=== PATIENT | female | born 1945 | race Caucasian/White ===

== ENCOUNTER → 2016-07-09 | Outpatient (REF) | payer MEDICARE, OTHER ==
[~2016-07-09] MED LIST: AMLO5TAB2 PO; BACL10TA2 PO; BACT2OIN2 TOP; BISO5TAB5 PO; BUTA1CAP4 PO; CLAR500T PO; CLON0.5T PO; CLON2TAB PO; DOCU100T8 PO; DOXE75CA2 PO; GABA300C3 PO; HCTZ50TA PO; HYDR10T PO; HYDR62TA PO; LISI40TAB PO; METF500T PO; ONDA1TAB15 PO; OXYC-517 PO; OXYC20TA2 PO; PERP16TA7 PO; POLYOPD OU; PRAV40TA2 PO; SYNT88TA2 PO; VENL75TA3 PO; VITATAB11 PO
== END ==
LOC: M LAB REF 19:34
PROVIDERS: ATTEND Physician Assistant
DX: R30.0 Dysuria (principal)

== ENCOUNTER 2016-08-21 13:23 | Emergency (ER) | payer MEDICARE, OTHER ==
[~2016-08-21] VITALS: Ht 160 cm; Wt 72.6 kg
[2016-08-21] MEDS ORDERED: ONETAB35 PO (13:52)
[2016-08-21] MEDS ORDERED: methylPREDNISolone INJ 125 MG/2 ML VIAL (J2930) IV ONE (14:15)
[2016-08-21] MEDS: IPRATROPIUM 0.5MG/ALBUTEROL 2.5MG INH SOL UD 3ML (DUONEB)(J7620) NEB PRN ×3 (14:15→15:09)
--- NOTE | 2016-08-21 14:42 | REP ---
Clinical: Dyspnea. Cough. Comparison: 09/28/2015. Findings: Mediastinum and cardiac silhouette are normal. Lung sterling demonstrate chronic interstitial changes. Coarsened markings and bronchitis along with scattered atelectasis cannot be excluded. No effusion. No pneumothorax. Skeletal structures intact. Impression: Cannot exclude bronchitis or scattered atelectasis. Signed by Daren Grajeda MD 08/21/2016 02:33 P
[2016-08-21 14:49] LABS: ABG HCO3 30.8 MEQ/L (22.0-26.0); ABG PARTIAL PRESSURE CO2 51.5 mmHg (35.0-45.0); ABG PARTIAL PRESSURE O2 72.5 mmHg (75.0-100.0); ABG STANDARD HCO3 28.9 MEQ/L (22.0-26.0); ABG TOTAL CO2 32.3 MEQ/L (23.0-31.0); ABG pH (ARTERIAL) 7.394 UNITS (7.350-7.450)
[2016-08-21 15:03] LABS: CALCIUM LEVEL 9.2 MG/DL (8.8-10.2); CREATININE FOR GFR 1.24 MG/DL (0.55-1.02); GLOMERULAR FILTRATION RATE 45.4 (>39); POTASSIUM SERUM 3.7 MEQ/L (3.5-5.1)
[2016-08-21 15:07] LABS: BASO % 0.5 % (0.0-1.0); EOS % 0.7 % (0.0-3.0); LARGE UNSTAINED CELL # 0.1 K/mm3 (0.0-0.4); LARGE UNSTAINED CELL % 2.4 % (0.0-4.0); LYMPH # 1.1 K/mm3 (1.5-4.5); LYMPH % 20.8 % (24.0-44.0); MEAN CORPUSCULAR HEMOGLOBIN 30.8 pg (27.0-33.0); MEAN CORPUSCULAR HGB CONC 31.8 g/dl (32.0-36.5); MONO # 0.4 K/mm3 (0.0-0.8); NEUTROPHILS # 3.1 K/mm3 (1.8-7.7); NEUTROPHILS % 67.5 % (36.0-66.0); PLATELET COUNT, AUTOMATED 249 k/mm3 (150-450); RED CELL DISTRIBUTION WIDTH 15.3 % (11.5-14.5); WHITE BLOOD COUNT 4.6 K/mm3 (4.0-10.0)
[2016-08-21 16:30] VITALS: BP 201/91
[2016-08-21] MEDS ORDERED: IPRASOL4 IN (16:43)
--- NOTE | 2016-08-22 20:48 | ECGEPIP ---
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
== END 2016-08-21 16:55 | disposition left against medical advice (07) ==
LOC: M ED 15:33
DX: J44.1 Chronic obstructive pulmonary disease with (acute) exacerbation (principal); I10 Essential (primary) hypertension; E11.9 Type 2 diabetes mellitus without complications; E78.5 Hyperlipidemia, unspecified; Z87.891 Personal history of nicotine dependence; Z88.0 Allergy status to penicillin; Z88.8 Allergy status to other drugs, medicaments and biological substances; Z79.899 Other long term (current) drug therapy; Z79.84 Long term (current) use of oral hypoglycemic drugs
CPT/HCPCS: 36600; 71010; 80048; 82550; 82553; 82803; 83605; 83880; 84484; 85025; 87040; 87804; 93005; 93041; 94640; 96374; 99285; J2930

== ENCOUNTER 2016-12-01 22:44 | Emergency (ER) | payer MEDICARE, OTHER ==
[~2016-12-01] VITALS: Ht 160 cm; Wt 68.1 kg
[~2016-12-01 22:44] MED LIST changes: +BACT2OIN10 TOP; -BACT2OIN2 TOP; +GABA-282 PO; -GABA300C3 PO; -HCTZ50TA PO; +HYDR-643 PO; -HYDR10T PO; +HYDR25TA6 PO; -HYDR62TA PO; +IPRASOL4 IN; -METF500T PO; +METF500T13 PO; -ONDA1TAB15 PO; +ONDA4TAB5 PO; +ONETAB35 PO; +TRIA75TA PO
[2016-12-01 22:45] VITALS: BP 156/98
[2016-12-02] MEDS ORDERED: PERCOCET 5MG/325MG TAB PO ONE
[2016-12-02] MEDS ORDERED: PERC5TAB12 PO (00:37)
--- NOTE | 2016-12-02 06:53 | REP ---
Clinical: Trauma. Technique: AP and lateral views of the left humerus. Findings: There is a closed, comminuted fracture involving the proximal humeral head/neck. Overlying soft tissue swelling noted. The clavicle and acromioclavicular joint are intact. Impression: Comminuted fracture of the humeral head/neck. Signed by Daren Grajeda MD 12/02/2016 06:44 A
--- NOTE | 2016-12-02 06:54 | REP ---
Clinical: Trauma. Technique: Single Y view. Findings: Y view of the shoulder in conjunction with humerus series demonstrates a comminuted, closed, nondisplaced fracture involving the humeral head. Age-related degenerative changes at the acromioclavicular joint are appreciated without fracture or dislocation. The scapula appears intact. Impression: Comminuted, closed nondisplaced fracture of the humeral head. Signed by Daren Grajeda MD 12/02/2016 06:46 A
[2017-02-04] MEDS ORDERED: ARTI99.0 OU (10:34)
[2017-02-04] MEDS ORDERED: CLON1TAB PO (10:34)
[2017-02-04] MEDS ORDERED: EFFE150C PO (10:34)
== END 2016-12-02 00:44 | disposition home or self-care (01) ==
LOC: M ED 22:44
DX: S42.295A Other nondisplaced fracture of upper end of left humerus, initial encounter for closed fracture (principal); Z87.891 Personal history of nicotine dependence; W19.XXXA Unspecified fall, initial encounter; Y92.099 Unspecified place in other non-institutional residence as the place of occurrence of the external cause; Y93.89 Activity, other specified; Y99.9 Unspecified external cause status

== ENCOUNTER 2016-12-09 17:02 | Emergency (ER) | payer MEDICARE, OTHER ==
[~2016-12-09] VITALS: Ht 160 cm; Wt 68.1 kg
[~2016-12-09 17:02] MED LIST changes: +PERC5TAB12 PO
[2016-12-09 17:07] VITALS: BP 131/77
[2016-12-09] MEDS ORDERED: PERC5TAB12 PO (17:48)
[2016-12-09] MEDS ORDERED: PERCOCET 5MG/325MG TAB PO ONE (18:00)
[2017-02-04] MEDS ORDERED: ARTI99.0 OU (10:34)
[2017-02-04] MEDS ORDERED: EFFE150C PO (10:34)
[2017-02-04] MEDS ORDERED: CLON1TAB PO (10:34)
== END 2016-12-09 18:07 | disposition home or self-care (01) ==
LOC: M ED 17:02
DX: S42.302D Unspecified fracture of shaft of humerus, left arm, subsequent encounter for fracture with routine healing (principal); I10 Essential (primary) hypertension; E11.9 Type 2 diabetes mellitus without complications; W19.XXXD Unspecified fall, subsequent encounter; Y92.099 Unspecified place in other non-institutional residence as the place of occurrence of the external cause; Y93.89 Activity, other specified; Y99.9 Unspecified external cause status

== ENCOUNTER → 2016-12-24 | Outpatient (REF) | payer MEDICARE, OTHER ==
[~2016-12-24] MED LIST changes: +ARTI99.0 OU; +CLON1TAB PO; +EFFE150C PO
[2016-12-25 07:46] LABS: CONTROL LINE HPYORI INT CTR LINE PRESENT
== END ==
LOC: M LAB REF 16:23
PROVIDERS: ATTEND Nurse Practitioner Family
DX: R10.9 Unspecified abdominal pain (principal)

== ENCOUNTER 2017-02-11 12:04 | Outpatient (CLI) | payer MEDICARE, OTHER ==
[~2017-02-11] VITALS: Ht 157.5 cm; Wt 68.0 kg
[2017-02-11] MEDS ORDERED: LR 1,000 ML IV ONE (12:15)
[2017-02-11] MEDS ORDERED: LIDOCAINE 2% INJ 100 MG/5 ML SDV (FOR ANES.) As Ordered ONE (13:04)
[2017-02-11] MEDS ORDERED: PROPOFOL 200 MG/20 ML VIAL As Ordered ONE ×2 (13:04→13:39)
--- NOTE | 2017-02-11 14:26 | ROOR ---
Patient Name: Rashmi Cha Procedure Date: 02/11/2017 1:03 PM Date of : 1945 Age: 71 Room: [facility] Gender: Female Note Status: Finalized Procedure: Colonoscopy Indications: Screening in patient at increased risk: Colorectal cancer in sister 60 or older Providers: Shadi De Leon MD Referring MD: DIANE FIGUEROA JR, MD Requesting Provider: Medicines: Monitored Anesthesia Care Complications: No immediate complications. Procedure: Pre-Anesthesia Assessment: - Prior to the procedure, a History and Physical was performed, and patient medications and allergies were reviewed. The patient is competent. The risks and benefits of the procedure and the sedation options and risks were discussed with the patient. All questions were answered and informed consent was obtained. Patient identification and proposed procedure were verified by the physician, the nurse and the anesthesiologist in the procedure room. Mental Status Examination: alert and oriented. Airway Examination: normal oropharyngeal airway and neck mobility. CV Examination: regular rate and rhythm. Prophylactic Antibiotics: The patient does not require prophylactic antibiotics. Prior Anticoagulants: The patient has taken no previous anticoagulant or antiplatelet agents. ASA Grade Assessment: IV - A patient with severe systemic disease that is a constant threat to life. After reviewing the risks and benefits, the patient was deemed in satisfactory condition to undergo the procedure. The anesthesia plan was to use monitored anesthesia care (MAC). Immediately prior to administration of medications, the patient was re-assessed for adequacy to receive sedatives. The heart rate, respiratory rate, oxygen saturations, blood pressure, adequacy of pulmonary ventilation, and response to care were monitored throughout the procedure. The physical status of the patient was re-assessed after the procedure. The Colonoscope was introduced through the anus and advanced to the cecum, identified by appendiceal orifice and ileocecal valve. The colonoscopy was unusually difficult due to vigorous peristalsis. The patient tolerated the procedure well. The quality of the bowel preparation was excellent. Findings: The perianal and digital rectal examinations were normal. A 10 mm polyp was found at 80 cm proximal to the anus. The polyp was sessile. The polyp was removed with a piecemeal technique using a cold biopsy forceps. The polyp was removed with a cold snare. Polyp resection was incomplete, and the resected tissue was partially retrieved. Estimated blood loss was minimal. Two sessile polyps were found at 60 cm proximal to the anus. The polyps were 4 mm in size. These polyps were removed with a piecemeal technique using a cold biopsy forceps. Resection and retrieval were complete. A 7 mm polyp was found at 25 cm proximal to the anus. The polyp was sessile. The polyp was removed with a hot snare. Resection was complete, but the polyp tissue was only partially retrieved. Estimated blood loss: none. Impression: - One 10 mm polyp at 80 cm proximal to the anus, removed with a cold snare and removed piecemeal using a cold biopsy forceps. Polyp resection was incomplete, and the resected tissue was partially retrieved. - Two 4 mm polyps at 60 cm proximal to the anus, removed piecemeal using a cold biopsy forceps. Resected and retrieved. - One 7 mm polyp at 25 cm proximal to the anus, removed with a hot snare. Complete resection. Partial retrieval. Recommendation: - Discharge patient to home. - Resume previous diet. - Continue present medications. - Await pathology results. - Telephone endoscopist for pathology results in 1 week. Shadi De Leon MD 02/11/2017 2:26:32 PM Number of Addenda: 0 Note Initiated On: 02/11/2017 1:03 PM Estimated Blood Loss: Estimated blood loss was minimal.
[2017-02-11 14:57] VITALS: BP 157/77
== END 2017-02-11 15:07 | disposition home or self-care (01) ==
LOC: M OPP 12:04
PROVIDERS: ATTEND Surgery
DX: Z12.11 Encounter for screening for malignant neoplasm of colon (principal); Z80.0 Family history of malignant neoplasm of digestive organs; D12.4 Benign neoplasm of descending colon; D12.5 Benign neoplasm of sigmoid colon; J44.9 Chronic obstructive pulmonary disease, unspecified; J45.909 Unspecified asthma, uncomplicated; E78.00 Pure hypercholesterolemia, unspecified; I12.9 Hypertensive chronic kidney disease with stage 1 through stage 4 chronic kidney disease, or unspecified chronic kidney disease; E03.9 Hypothyroidism, unspecified; E11.9 Type 2 diabetes mellitus without complications; N18.9 Chronic kidney disease, unspecified; K21.9 Gastro-esophageal reflux disease without esophagitis; F41.9 Anxiety disorder, unspecified; F33.9 Major depressive disorder, recurrent, unspecified; M19.90 Unspecified osteoarthritis, unspecified site; R29.818 Other symptoms and signs involving the nervous system; Z79.84 Long term (current) use of oral hypoglycemic drugs; Z99.81 Dependence on supplemental oxygen; Z79.899 Other long term (current) drug therapy; Z87.891 Personal history of nicotine dependence; Z88.0 Allergy status to penicillin; Z88.8 Allergy status to other drugs, medicaments and biological substances

== ENCOUNTER → 2017-03-26 | Outpatient (REF) | payer MEDICARE, OTHER | LOC: M LAB REF 16:49 | PROVIDERS: ATTEND Nurse Practitioner Family | DX: R53.83 Other fatigue (principal) ==

== ENCOUNTER 2017-04-16 14:59 | Emergency (ER) | payer MEDICARE, OTHER ==
[~2017-04-16] VITALS: Ht 160 cm; Wt 75.0 kg
[2017-04-16] MEDS ORDERED: BISO5TAB5 (15:17)
[2017-04-16] MEDS ORDERED: GLIP5TAB8 (15:17)
[2017-04-16 16:43] LABS: ABG BASE EXCESS 2.3 (-2.0-2.0); ABG HCO3 28.8 MEQ/L (22.0-26.0); ABG PARTIAL PRESSURE CO2 53.9 mmHg (35.0-45.0); ABG PARTIAL PRESSURE O2 68.5 mmHg (75.0-100.0); ABG STANDARD HCO3 26.4 MEQ/L (22.0-26.0); ABG TOTAL CO2 30.4 MEQ/L (23.0-31.0); ABG pH (ARTERIAL) 7.345 UNITS (7.350-7.450)
[2017-04-16 17:11] LABS: MEAN CORPUSCULAR HEMOGLOBIN 27.8 pg (27.0-33.0); MEAN CORPUSCULAR HGB CONC 30.8 g/dl (32.0-36.5); PLATELET COUNT, AUTOMATED 248 10^3/uL (150-450); RED CELL DISTRIBUTION WIDTH 15.7 % (11.5-14.5); WHITE BLOOD COUNT 8.3 10^3/uL (4.0-10.0)
[2017-04-16 17:12] LABS: ADD MANUAL DIFFER YES; DIFF SLIDE NUMBER 306; LEFT SHIFT POS FLAG; POSITIVE MORPH POS FLAG
[2017-04-16] MEDS ORDERED: ACETAMINOPHEN TAB 650MG DOSE (2X325MG) As Ordered ONE (17:27)
--- NOTE | 2017-04-16 17:29 | REP ---
PORTABLE CHEST: AP portable view of the chest is performed and compared to multiple prior exams, most recent of which is 08/21/2016. There is cardiomegaly again noted with mild bibasilar fibro atelectatic change. No acute infiltrate is seen. There is calcification of the thoracic aorta. The mediastinal silhouette is unchanged. IMPRESSION: Mild cardiomegaly and chronic changes. No acute infiltrate. Signed by Axel Bryan MD 04/17/2017 04:50 P
[2017-04-16] MEDS ORDERED: ACETAMINOPHEN TAB 650MG DOSE (2X325MG) PO ONE (17:30)
[2017-04-16 17:31] LABS: ALBUMIN 3.2 GM/DL (3.2-5.2); ALBUMIN/GLOBULIN RATIO 0.73 (1.00-1.93); ALKALINE PHOSPHATASE 81 U/L (45-117); ALT/SGPT 23 U/L (12-78); AST/SGOT 17 U/L (7-37); BILIRUBIN,DIRECT < 0.1 MG/DL (0.0-0.2); BILIRUBIN,TOTAL 0.4 MG/DL (0.2-1.0); TOTAL PROTEIN 7.6 GM/DL (6.4-8.2)
[2017-04-16 17:34] VITALS: BP 143/71
[2017-04-16 17:35] LABS: ANION GAP 4 MEQ/L (8-16); BLOOD UREA NITROGEN 20 MG/DL (7-18); CALCIUM LEVEL 8.8 MG/DL (8.8-10.2); CARBON DIOXIDE LEVEL 30 MEQ/L (21-32); CHLORIDE LEVEL 101 MEQ/L (98-107); CREATININE FOR GFR 1.36 MG/DL (0.55-1.02); GLOMERULAR FILTRATION RATE 40.7 (>39); GLUCOSE, FASTING 97 MG/DL (83-110); POTASSIUM SERUM 4.9 MEQ/L (3.5-5.1); SODIUM LEVEL 135 MEQ/L (136-145)
[2017-04-16 17:39] LABS: ANISOCYTOSIS 1+; BANDS 6 % (< 11); BASOPHILS 2 % (0-4); EOSINOPHILS 1 % (0-5)
[2017-04-16] MEDS ORDERED: FUROSEMIDE 40 MG/4 ML VIAL (J1940) IV ONE (18:30)
[2017-04-16] MEDS ORDERED: FUROSEMIDE 40 MG/4 ML VIAL (J1940) As Ordered ONE (18:50)
--- NOTE | 2017-04-17 13:49 | ECGEPIP ---
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
== END 2017-04-16 19:23 | disposition home or self-care (01) ==
LOC: M ED 14:59
DX: I50.9 Heart failure, unspecified (principal); R06.02 Shortness of breath; E11.9 Type 2 diabetes mellitus without complications; I11.0 Hypertensive heart disease with heart failure; J44.9 Chronic obstructive pulmonary disease, unspecified; Z87.891 Personal history of nicotine dependence
CPT/HCPCS: 36600; 71010; 80048; 80076; 82550; 82553; 82803; 83605; 83880; 84484; 85025; 93005; 93041; 96374; 99285; J1940

== ENCOUNTER → 2017-09-26 | Outpatient (REF) | payer MEDICARE, OTHER ==
[2017-09-26 17:44] LABS: IRON (FE) 63 UG/DL (50-170); PERCENT SATURATION 15.7 % (13.2-45.0); TOTAL IRON BINDING CAPACITY 401 UG/DL (250-450)
== END ==
LOC: M LAB REF 16:46
DX: N18.3 Chronic kidney disease, stage 3 (moderate) (principal); I12.9 Hypertensive chronic kidney disease with stage 1 through stage 4 chronic kidney disease, or unspecified chronic kidney disease; D63.1 Anemia in chronic kidney disease
CPT/HCPCS: 83550

== ENCOUNTER 2017-11-14 19:38 | Emergency (ER) | payer MEDICARE, OTHER ==
[2017-11-15] MEDS: KETOROLAC 60 MG/2 ML VIAL (J1885) IM (01:52)
== END 2017-11-15 02:21 | disposition home or self-care (01) ==
LOC: M ED 19:38
DX: M25.512 Pain in left shoulder (principal); G89.29 Other chronic pain; Z87.81 Personal history of (healed) traumatic fracture; E11.9 Type 2 diabetes mellitus without complications; I10 Essential (primary) hypertension; E03.9 Hypothyroidism, unspecified; F33.9 Major depressive disorder, recurrent, unspecified; Z87.891 Personal history of nicotine dependence; Z88.8 Allergy status to other drugs, medicaments and biological substances; Z88.5 Allergy status to narcotic agent; Z88.0 Allergy status to penicillin
CPT/HCPCS: J1885

== ENCOUNTER → 2017-12-04 | Outpatient (CLI) | payer MEDICARE, OTHER | LOC: M RAD 13:30 | DX: M19.012 Primary osteoarthritis, left shoulder (principal); S42.201D Unspecified fracture of upper end of right humerus, subsequent encounter for fracture with routine healing | CPT/HCPCS: 73200 ==

== ENCOUNTER 2018-01-08 12:37 | Day surgery (SDC) | payer MEDICARE, OTHER ==
[~2018-01-08 12:37] MED LIST changes: -AMLO5TAB2 PO; -ARTI99.0 OU; -BACL10TA2 PO; -BACT2OIN10 TOP; -BISO5TAB5 PO; -BUTA1CAP4 PO; -CLAR500T PO; -CLON0.5T PO; -CLON1TAB PO; -CLON2TAB PO; -DOCU100T8 PO; -DOXE75CA2 PO; -EFFE150C PO; -GABA-282 PO; -HYDR-643 PO; -HYDR25TA6 PO; -IPRASOL4 IN; +LIDOCAINE 2% INJ 100 MG/5 ML SDV (FOR ANES.) As Ordered; -LISI40TAB PO; -METF500T13 PO; -ONDA4TAB5 PO; -ONETAB35 PO; -OXYC-517 PO; -OXYC20TA2 PO; -PERC5TAB12 PO; -PERP16TA7 PO; -POLYOPD OU; -PRAV40TA2 PO; +PROPOFOL 200 MG/20 ML VIAL As Ordered; -SYNT88TA2 PO; -TRIA75TA PO; -VENL75TA3 PO; -VITATAB11 PO
[2018-01-08] MEDS: NS 1,000 ML IV (12:45)
== END 2018-01-08 15:36 | disposition home or self-care (01) ==
LOC: M OPP 12:37
DX: R10.9 Unspecified abdominal pain (principal); R11.0 Nausea; K29.70 Gastritis, unspecified, without bleeding; I10 Essential (primary) hypertension; E78.5 Hyperlipidemia, unspecified; R01.1 Cardiac murmur, unspecified; E11.9 Type 2 diabetes mellitus without complications; E03.9 Hypothyroidism, unspecified; Z87.19 Personal history of other diseases of the digestive system; K44.9 Diaphragmatic hernia without obstruction or gangrene; K59.00 Constipation, unspecified; K21.9 Gastro-esophageal reflux disease without esophagitis; R12 Heartburn; D64.9 Anemia, unspecified; M19.90 Unspecified osteoarthritis, unspecified site; M54.5 Low back pain; M81.0 Age-related osteoporosis without current pathological fracture; F41.9 Anxiety disorder, unspecified; F32.9 Major depressive disorder, single episode, unspecified; G43.909 Migraine, unspecified, not intractable, without status migrainosus; J45.909 Unspecified asthma, uncomplicated; J44.9 Chronic obstructive pulmonary disease, unspecified; Q61.3 Polycystic kidney, unspecified; J38.1 Polyp of vocal cord and larynx; E55.9 Vitamin D deficiency, unspecified; Z87.891 Personal history of nicotine dependence; Z88.8 Allergy status to other drugs, medicaments and biological substances; Z88.5 Allergy status to narcotic agent; Z88.0 Allergy status to penicillin; Z79.84 Long term (current) use of oral hypoglycemic drugs; Z79.899 Other long term (current) drug therapy
CPT/HCPCS: 43239

== ENCOUNTER 2018-01-20 11:03 | Day surgery (SDC) | payer MEDICARE, OTHER ==
[~2018-01-20 11:03] MED LIST changes: +ACETAMINOPHEN 325 MG TAB PO; -LIDOCAINE 2% INJ 100 MG/5 ML SDV (FOR ANES.) As Ordered; +PHENYLEPHRINE HCL 10 % OPHTH. SOL 5ML OS; -PROPOFOL 200 MG/20 ML VIAL As Ordered
[2018-01-20] MEDS: CYCLOPENTOLATE 2% OPHTH SOLN 2ML BTL OS (11:57)
[2018-01-20] MEDS: OFLOXACIN 0.3 % (OCUFLOX) OPTH SOL 5ML OS (11:58)
[2018-01-20] MEDS: TROPICAMIDE 1% OPHTH SOLN 2ML OS (11:58)
[2018-01-20] MEDS: LIDOCAINE 3.5 % 1ML OPHTH TOPICAL GEL OU (11:58)
[2018-01-20] MEDS: PHENYLEPHRINE 2.5% OPHTH SOL 2ML OS (11:58)
[2018-01-20 12:07] LABS: BEDSIDE GLUCOSE 131 MG/DL (83-110)
[2018-01-20] MEDS: ALBUTEROL SULFATE 2.5 MG/0.5 ML INH NEB SOLN INH (12:20)
[2018-01-20] MEDS ORDERED: ALBUTEROL SULFATE 2.5 MG/0.5 ML INH NEB SOLN As Ordered (12:25)
[2018-01-20] MEDS: LIDOCAINE 1% SDV 5 ML VIAL As Ordered (13:04)
[2018-01-20] MEDS: TRIAMCINOLONE PRES FR 40 MG/ML 1ML(TRIESENCE)(OR EYE ONLY)(J3300 PER 1MG) As Ordered (13:04)
[2018-01-20] MEDS: BSS with VANC/TOB/EPI for EYE CASES IR (13:04)
[2018-01-20] MEDS: POVIDONE-IODINE 5% OPHTH PREP SOL 30ML As Ordered (13:04)
[2018-01-20] MEDS: HEALON DUET (HEALON 10MG/ML 0.55ML & HEALON ENDOCOAT 30MG/ML 0.85ML) As Ordered (13:04)
[2018-01-20] MEDS: MOXIFLOXACIN IN BSS 0.25MG/0.25ML INTRACAMERAL INJ (OR EYE ONLY)(J2280) As Ordered (13:04)
[2018-01-20] MEDS: TETRACAINE 0.5% OPHTH SOLN 4ML As Ordered (13:13)
[2018-01-20] MEDS ORDERED: TRIMETHOBENZAMIDE 300 MG CAP PO (13:45)
[2018-01-20] MEDS: AcetaZOLAMIDE 500 MG ER CAP PO (14:07)
== END 2018-01-20 14:23 | disposition home or self-care (01) ==
LOC: M SDC 11:03
DX: H26.9 Unspecified cataract (principal); I10 Essential (primary) hypertension; E78.5 Hyperlipidemia, unspecified; J44.9 Chronic obstructive pulmonary disease, unspecified; N18.9 Chronic kidney disease, unspecified; Q61.2 Polycystic kidney, adult type; E11.9 Type 2 diabetes mellitus without complications; E03.9 Hypothyroidism, unspecified; F41.9 Anxiety disorder, unspecified; F32.9 Major depressive disorder, single episode, unspecified; K21.9 Gastro-esophageal reflux disease without esophagitis; Z88.0 Allergy status to penicillin; Z88.5 Allergy status to narcotic agent; Z88.8 Allergy status to other drugs, medicaments and biological substances
CPT/HCPCS: 66984

== ENCOUNTER → 2018-04-16 | Outpatient (REF) | payer MEDICARE, OTHER ==
[2018-04-16 16:04] LABS: HEMATOCRIT 39.6 % (36.0-47.0); HEMOGLOBIN 12.6 g/dl (12.0-15.5); PLATELET COUNT, AUTOMATED 193 10^3/uL (150-450)
[2018-04-16 16:36] LABS: INR 1.04; PROTHROMBIN TIME 13.7 SECONDS (12.1-14.4)
[2018-04-16 16:37] LABS: PARTIAL THROMBOPLASTIN TIME 31.1 SECONDS (25.4-37.6)
[2018-04-16 16:46] LABS: ERYTHROCYTE SEDIMENTATION RATE 12 mm/hr (0-30)
[2018-04-16 16:47] LABS: ANION GAP 8 MEQ/L (8-16); BLOOD UREA NITROGEN 14 MG/DL (7-18); C REACTIVE PROTEIN QUANTITATIV 0.56 MG/DL (0.00-0.30); CALCIUM LEVEL 8.9 MG/DL (8.8-10.2); CARBON DIOXIDE LEVEL 31 MEQ/L (21-32); CHLORIDE LEVEL 100 MEQ/L (98-107); CREATININE FOR GFR 1.17 MG/DL (0.55-1.30); GLOMERULAR FILTRATION RATE 48.3 (>39); GLUCOSE, FASTING 259 MG/DL (70-100); POTASSIUM SERUM 4.6 MEQ/L (3.5-5.1); SODIUM LEVEL 139 MEQ/L (136-145)
[2018-04-16 17:11] LABS: COLLAGEN EPINEPHRINE 179 SECONDS (74-162)
[2018-04-16 17:12] LABS: COLLAGEN ADP 257 SECONDS (56-103)
[2018-04-22 14:14] LABS: HLA-B27 Negative (.)
== END ==
LOC: M LABDRAW1 15:38
DX: M48.02 Spinal stenosis, cervical region (principal); Z79.01 Long term (current) use of anticoagulants
CPT/HCPCS: 80048

== ENCOUNTER → 2018-05-13 | Outpatient (REF) | payer MEDICARE, OTHER ==
[2018-05-13 17:18] LABS: COLLAGEN ADP 294 SECONDS (56-103); COLLAGEN EPINEPHRINE > 300 SECONDS (74-162)
== END ==
LOC: M LABDRAW1 16:00
DX: Z01.818 Encounter for other preprocedural examination (principal); M48.02 Spinal stenosis, cervical region
CPT/HCPCS: 36415

== ENCOUNTER → 2018-07-20 | Outpatient (REF) | payer MEDICARE, OTHER ==
[~2018-07-20] MED LIST changes: -ACETAMINOPHEN 325 MG TAB PO; +AMLO5TAB6 PO; +ARTI99.0 OU; +BACL10TA2 PO; +BACT2OIN10 TOP; +BISO5TAB5 PO; +BUTA1CAP4 PO; +CLAR500T PO; +CLON0.5T8 PO; +CLON1TAB8 PO; +CLON2TAB7 PO; +DOCU100T8 PO; +DOXE75CA2 PO; +EFFE150C2 PO; +FURO20TA2 PO; +GABA-843 PO; +GLIP5TAB8; +GLIP5TAB8 PO; +HYDR-643 PO; +HYDR25TA6 PO; +IPRA0.00 IN; +LISI40TAB PO; +METF500T13 PO; +METO10TA2 PO; +OMEP40CA2 PO; +ONDA4TAB5 PO; +ONDA8TAB7; +ONETAB35 PO; +OXYC-517 PO; +OXYC20TA2 PO; +PERC5TAB12 PO; +PERP16TA7 PO; -PHENYLEPHRINE HCL 10 % OPHTH. SOL 5ML OS; +POLYOPD OU; +PRAV40TA2 PO; +SYNT88TA2 PO; +TRIA75TA PO; +VENL75TA3 PO; +VITATAB11 PO
== END ==
LOC: M LAB REF 17:04
PROVIDERS: ATTEND Specialist
DX: B37.84 Candidal otitis externa (principal)

== ENCOUNTER → 2018-10-13 | Outpatient (REF) | payer MEDICARE, OTHER ==
[~2018-10-13] MED LIST changes: +LISI40TA52 PO; -LISI40TAB PO; +VENL-65 PO; -VENL75TA3 PO
[2018-10-13 19:10] LABS: PERCENT SATURATION 23.2 % (13.2-45.0)
== END ==
LOC: M LAB REF 17:58
PROVIDERS: ATTEND Internal Medicine
DX: D50.9 Iron deficiency anemia, unspecified (principal)

== ENCOUNTER → 2019-01-06 | Outpatient (CLI) | payer MEDICARE, OTHER ==
[~2019-01-06] MED LIST changes: -ARTI99.0 OU; +ARTIDRO2 OU; +BISO5TAB14 PO; -BISO5TAB5 PO; +CLON0.5T2 PO; -CLON0.5T8 PO; -OMEP40CA2 PO; +OMEP40CA97 PO; +ONDA-83 PO; -ONDA4TAB5 PO; +ONDA8TAB10; -ONDA8TAB7
--- NOTE | 2019-01-07 15:36 | REP ---
HISTORY: Prior CT of the chest 12/28/2018 showed a 2 cm sized irregular somewhat spiculated nodular density in the superior right middle lobe region. After the intravenous administration of 8.41 mCi of FDG-18 triplane whole body PET/CT was performed from the skull base to the mid thigh. The abnormal right lung nodule seen on the CT scan is hypermetabolic with SUV value of 4.7. There is on evidence of abnormal hypermetabolic mediastinal or hilar adenopathy. There are no other areas of abnormal hypermetabolism seen in the neck, chest, abdomen or pelvis. There are scattered areas of increased activity throughout multiple muscle groups consistent with the lack of proper resting post injection. There is a simple cyst seen arising from the right kidney. IMPRESSION: Hypermetabolic right lung lesion as described above. Electronically Signed by Raymond Beltrán DO 01/07/2019 05:01 P
== END ==
LOC: M PLARAD 13:27
PROVIDERS: ATTEND Nurse Practitioner Adult Health
DX: R91.1 Solitary pulmonary nodule (principal); N28.1 Cyst of kidney, acquired
CPT/HCPCS: 78815; A9552

== ENCOUNTER → 2019-01-18 | Outpatient (REF) | payer MEDICARE, OTHER ==
[2019-01-18 18:46] LABS: APPEARANCE, URINE CLEAR (CLEAR); BACTERIA, URINE AUTO NEGATIVE (NEGATIVE); BILIRUBIN, URINE AUTO NEGATIVE (NEGATIVE); BLOOD, URINE BLOOD NEGATIVE (NEGATIVE); COLOR, URINE STRAW (YELLOW); GLUCOSE, URINE (UA) AUTO NEGATIVE (NEGATIVE); KETONE, URINE AUTO NEGATIVE (NEGATIVE); LEUKOCYTE ESTERASE, URINE AUTO NEGATIVE (NEGATIVE); NITRITE, URINE AUTO NEGATIVE (NEGATIVE); PROTEIN, URINE AUTO NEGATIVE (NEGATIVE); RBC, URINE AUTO 0 /HPF (0-3); SPECIFIC GRAVITY URINE AUTO 1.009 (1.002-1.035); SQUAMOUS EPITHELIAL CELL UR AU 1 /HPF (0-6); UROBILINOGEN, URINE AUTO 0.2 mg/dL (0.0-2.0); WBC, URINE AUTO 1 /HPF (0-3)
== END ==
LOC: M LAB REF 18:07
PROVIDERS: ATTEND Physician Assistant Medical
DX: N39.0 Urinary tract infection, site not specified (principal)

== ENCOUNTER → 2019-09-28 | Outpatient (CLI) | payer MEDICARE, OTHER ==
[~2019-09-28] MED LIST changes: -ARTIDRO2 OU; -CLAR500T PO; +CLAR500T97 PO; +ISOVUE-370 76% 100ML VIAL As Ordered ONE
[2019-09-28 13:41] LABS: CREATININE FOR GFR 1.13 MG/DL (0.55-1.30); GLOMERULAR FILTRATION RATE 50.1 (>39)
--- NOTE | 2019-09-28 15:37 | REP ---
REASON: Lung carcinoma. COMPARISON: 12/28/2018. Contrast 100 mL Isovue 370. Nonenlarged mediastinal and hilar lymph nodes are noted status quo. There are no pleural or pericardial effusions. There is no significant change in appearance of the imaged upper abdomen or imaged osseous structures. Evaluation of the lung sterling shows irregular nodular density seen previously in the superior aspect of the right middle lobe to have gotten significantly smaller. Today this nodule measures 6 mm. There are new curvilinear right lower lobe densities. These are nonspecific. IMPRESSION: 1. Improved right middle lobe density as described above. 2. Curvilinear right lower lobe densities having the appearance of fibrotic and/or subsegmental atelectatic changes, however, I would suggest a 3-month followup or sooner if clinically relevant. Electronically Signed by Raymond Beltrán DO 09/28/2019 03:44 P
== END ==
LOC: M RAD 12:37
PROVIDERS: ATTEND Radiology Radiation Oncology
DX: C34.2 Malignant neoplasm of middle lobe, bronchus or lung (principal)
CPT/HCPCS: 36415; 71260; 82565; 84520; Q9967

== ENCOUNTER → 2020-05-30 | Outpatient (REF) | payer MEDICARE, OTHER ==
[~2020-05-30] MED LIST changes: +AMLO1TAB24 PO; -AMLO5TAB6 PO; -ISOVUE-370 76% 100ML VIAL As Ordered ONE
== END ==
LOC: M WUC 12:00
PROVIDERS: ATTEND Physician Assistant
DX: R30.0 Dysuria (principal)

== ENCOUNTER → 2020-06-05 | Outpatient (CLI) | payer MEDICARE, OTHER ==
--- NOTE | 2020-06-08 10:08 | REP ---
INDICATION: LUNG CA COMPARISON: 09/28/2019 TECHNIQUE: Axial noncontrast images from the thoracic inlet to the upper abdomen with coronal and sagittal reformations. This CT examination was performed using the following dose reduction techniques: Automated exposure control, adjustment of mA and/or kv according to the patient's size, and use of iterative reconstruction technique. FINDINGS: There is a new 16 x 18 x 21 mm triangular density in the apex of the right middle lobe at the confluence of the right major and minor fissures with mild adjacent stranding/scarring which correlates with the site of previous noted 6 mm nodule. These findings are nonspecific although active process/pathology cannot be excluded. Previously identified ill-defined linear atelectasis/irregular consolidation in the periphery of the right lower lobe is nearly resolved with only minimal likely chronic linear scarring remaining. Remainder of the bilateral lung sterling are well aerated and essentially clear. No effusion. No pneumothorax. Tracheobronchial tree is patent. Mediastinum demonstrates stable significant atherosclerotic changes to the thoracic aorta and coronary arteries without aortic aneurysm or pericardial effusion. Evaluation for adenopathy is significantly limited due to the lack of contrast and small nonspecific lymph nodes measuring up to approximately 11 mm short axis are suspected. IMPRESSION: 1. New triangular area of density at the confluence of the right major and minor fissures at the apex of the right middle lobe and at the site of previously noted nodule. The nodule itself is obscured. And continued active process/pathology cannot be excluded. No significant associated history of surgery or biopsy. Short-term follow-up and/or PET-CT is recommended. 2. Minimal residual linear scarring at the site of previous atelectasis/linear consolidation within the right lower lobe. <Electronically signed by Daren Grajeda > 06/08/20 [id number]
== END ==
LOC: M RAD 10:25
PROVIDERS: ATTEND Radiology Radiation Oncology
DX: C34.2 Malignant neoplasm of middle lobe, bronchus or lung (principal)

== ENCOUNTER → 2020-09-22 | Outpatient (CLI) | payer MEDICARE, OTHER ==
[~2020-09-22] MED LIST changes: +GABA-282 PO; -GABA-843 PO
--- NOTE | 2020-09-22 13:34 | REP ---
INDICATION: LUNG CA COMPARISON: 06/05/2020 TECHNIQUE: Axial noncontrast images from the thoracic inlet to the upper abdomen with coronal and sagittal reformations. This CT examination was performed using the following dose reduction techniques: Automated exposure control, adjustment of mA and/or kv according to the patient's size, and use of iterative reconstruction technique. FINDINGS: The triangular density with adjacent linear scarring/fibrosis at the confluence of the right minor and major fissures again measures approximately 2.0 x 1.3 x 1.1 cm and is essentially unchanged. Small stable scattered densities are also identified which are relatively stable through 09/28/2019. No new acute consolidation, nodule or mass is otherwise appreciated. No pleural effusion. No pneumothorax. Stable atherosclerotic changes to the thoracic aorta and coronary arteries noted. Few small mediastinal lymph nodes are unchanged. Tracheobronchial tree is patent. Surrounding musculoskeletal structures without acute osseous abnormality. IMPRESSION: Findings are chronic/stable as compared with prior exam. No new acute mediastinal or pleuroparenchymal process is appreciated. <Electronically signed by Daren Grajeda > 09/22/20 [id number]
== END ==
LOC: M RAD 12:37
PROVIDERS: ATTEND Radiology Radiation Oncology
DX: C34.2 Malignant neoplasm of middle lobe, bronchus or lung (principal)

== ENCOUNTER → 2020-10-19 | Outpatient (CLI) | payer MEDICARE, OTHER ==
--- NOTE | 2020-10-20 06:12 | REP ---
INDICATION: ADENOCARCINOMA COMPARISON: 09/22/2020, 12/28/2018 TECHNIQUE: Axial noncontrast images from the thoracic inlet to the upper abdomen with coronal and sagittal reformations. This CT examination was performed using the following dose reduction techniques: Automated exposure control, adjustment of mA and/or kv according to the patient's size, and use of iterative reconstruction technique. FINDINGS: The lung sterling demonstrate diffuse chronic stable interstitial changes. A triangular area of opacity in the right mid lung zone with subtle surrounding ground-glass opacity and small nodular densities is essentially unchanged when compared with most recent prior examinations dating through 06/05/2020, but represents a relatively new finding as compared with 09/28/2019. These findings may reflect sequelae of prior process however active disease cannot definitively be excluded. No further acute consolidation, suspicious nodule or mass. No effusion. No pneumothorax. Tracheobronchial tree is patent. Mediastinum demonstrates stable atherosclerotic changes to the thoracic aorta and coronary arteries. No cardiomegaly or pericardial effusion. No obvious significant mediastinal or hilar adenopathy. Musculoskeletal structures are intact and without acute process. IMPRESSION: Triangular area of opacity with subtle surrounding interstitial and nodular changes in the right midlung zone again noted and similar through 06/05/2020 (although possibly slightly improved). Differential diagnosis includes chronic sequelae from prior process although acute active disease cannot be excluded. <Electronically signed by Daren Grajeda > 10/20/20 [id number]
== END ==
LOC: M RAD 16:01
PROVIDERS: ATTEND Nurse Practitioner Adult Health
DX: C34.2 Malignant neoplasm of middle lobe, bronchus or lung (principal)

== ENCOUNTER → 2021-01-26 | Outpatient (CLI) | payer MEDICARE, OTHER ==
[~2021-01-26] MED LIST changes: +OMEP40CA4 PO; -OMEP40CA97 PO
== END ==
LOC: M LAB 17:20
PROVIDERS: ATTEND Optometrist
DX: M31.6 Other giant cell arteritis (principal)

== ENCOUNTER → 2021-02-07 | Outpatient (REF) | payer MEDICARE, OTHER | LOC: M LAB REF 16:39 | PROVIDERS: ATTEND Internal Medicine | DX: M31.6 Other giant cell arteritis (principal) ==

== ENCOUNTER → 2021-02-13 | Outpatient (REF) | payer MEDICARE, OTHER ==
[~2021-02-13] MED LIST changes: +ONDA-84; -ONDA8TAB10
[2021-02-13 18:02] LABS: PERCENT SATURATION 10.2 % (13.2-45.0)
== END ==
LOC: M LAB REF 17:09
PROVIDERS: ATTEND Internal Medicine
DX: D64.9 Anemia, unspecified (principal)

== ENCOUNTER → 2021-03-29 | Outpatient (CLI) | payer MEDICARE ==
[~2021-03-29] MED LIST changes: +DUOVISC (0.50ML VISCOAT/0.85ML PROVISC) OPHTH KIT As Ordered ONE; +LIDOCAINE 1% SDV 5ML VIAL As Ordered ONE; -ONDA-84; +ONDA8TAB10
--- NOTE | 2021-03-29 18:11 | REPVR ---
PROCEDURE INFORMATION: Exam: CT Chest Without Contrast; Diagnostic Exam date and time: 03/29/2021 4:59 PM Age: 76 years old Clinical indication: Condition or disease; Lung condition and disease; Cancer of the lung; Right; Unspecified; Additional info: Surveillence of lung CA TECHNIQUE: Imaging protocol: Diagnostic computed tomography of the chest without contrast. 3D rendering (Not supervised by radiologist): MIP and/or 3D reconstructed images were created by the technologist. Radiation optimization: All CT scans at this facility use at least one of these dose optimization techniques: automated exposure control; mA and/or kV adjustment per patient size (includes targeted exams where dose is matched to clinical indication); or iterative reconstruction. COMPARISON: CT Chest without contrast 10/19/2020 4:13 PM FINDINGS: Lungs: Stable appearance of a wedge-shaped focus of parenchymal density demonstrated in the right middle lobe comparison to the prior study of 10/19/2020. New parenchymal banding either representing scarring or atelectasis demonstrated in the right middle and lower lobes. Interval development of vague reticular opacities in the right upper and middle lobes. There is a 4.5 mm and 3.1 mm noncalcified nodules right lower lobe not previously demonstrated. Mild thickening of the airways in both lower lobes may indicate reactive airway disease and/or bronchitis. Well inflated lungs with flattened diaphragmatic contours and increased retrosternal airspace consistent with COPD. Pleural spaces: Stable 2 mm subpleural nodules left upper lobe. Heart: There is severe atherosclerotic calcification of the coronary arteries. Aorta: Unremarkable. No aortic aneurysm. Other arteries: There is moderate atherosclerosis in the thoracic aorta. Lymph nodes: Small mediastinal lymph nodes likely postinflammatory. Bones/joints: The spine demonstrates mild degenerative changes. Soft tissues: Unremarkable. IMPRESSION: 1. There is a 4.5 mm and 3.1 mm noncalcified nodules right lower lobe not previously demonstrated. Other smaller nodules described above are stable. For patients at low risk (minimal or absent history of smoking and of other known risk factors), no routine follow-up is indicated. For patients at high risk (history of smoking or of other known risk factors), consider optional CT Chest at 12 months. (Reference: Maddi) References: Maddi Shine et al. Guidelines for Management of Incidental Pulmonary Nodules Detected on CT Images: From the Fleischner Society 2017. Radiology. 2017;284(1):228-243. 2. Mild thickening of the airways in both lower lobes may indicate reactive airway disease and/or bronchitis. 3. COPD. Electronically signed by: Ignacio Ruffin On 03/29/2021 18:10:35 PM
== END ==
LOC: M RAD 16:35
DX: C34.2 Malignant neoplasm of middle lobe, bronchus or lung (principal); J44.9 Chronic obstructive pulmonary disease, unspecified

== ENCOUNTER 2021-04-23 17:09 | Emergency (ER) | payer MEDICARE ==
[~2021-04-23] VITALS: Ht 157.5 cm; Wt 47.7 kg
[~2021-04-23 17:09] MED LIST changes: -DUOVISC (0.50ML VISCOAT/0.85ML PROVISC) OPHTH KIT As Ordered ONE; -LIDOCAINE 1% SDV 5ML VIAL As Ordered ONE
[2021-04-23 17:10] VITALS: BP 149/88
--- OUTSIDE RECORDS SUMMARY | 2021-04-23 17:18 | CCD | Continuity of Care Document ---
Author Author Rashmi Puente MD Organization Unknown Address [address] [facility] [address] [place] [address] Phone [phone] Care Team Providers Care Forest Logistics Manager Name Role Phone Dev Del Angel MD AUTM [phone] Kareem Shane DO AUTM [phone] Rico Puente JR, MD AUTM Unavailable Yohannes Gonzalez MD AUTM [phone] Problems Active Problems Provider Date Type 2 diabetes mellitus ELOY [place] Onset: 08/01/19 17 Carotid artery occlusion ELOY [place] Onset: 02/15/20 18 Chronic kidney disease stage 3 ELOY [place] Onset: Social History Type Date Description Comments Sex Unknown ETOH Use Denies alcohol use Tobacco Use Start: Unknown End: Unknown Patient is a former smoker 25-30 pack year cigarette smoking history. Quit smoking the day of her diagnosis of lung cancer in 2019 Allergies, Adverse Reactions, Alerts Active Allergies Criticality Reaction | Severity Comments Date Penicillin Unable to assess criticality hives 08/13/2016 Januvia Unable to assess criticality nausea 08/13/2016 Invokana Unable to assess criticality 08/13/2016 Cefdinir Unable to assess criticality 08/13/2016 Tylenol With Codeine Unable to assess criticality Rash 02/10/2017 Levaquin Unable to assess criticality rash and hiv es 09/18/2017 Contrast Dye Unable to assess criticality vomiting and rash 10/16/2020 Inactive Allergies Prednisone Unable to assess criticality 08/13/2016 Medications Active Medications SIG Qnty Indications Ordering Provide r Date Iron 325(65Fe) mg Tablets 1 by mouth every day with juice 30tabs Rico Puente MD 02/23/2021 Rosuvastatin Calcium 40mg Tablets 1/2 by mouth every day 90tabs Contreras Puente DO 02/08/20 21 Bisoprolol Fumarate 5mg Tablets take 1 tablet by mouth every day 30tabs Rico Puente MD 10/20/2020 Onetouch Delica Plus Lancets Extra Fine 33G Plus 33G Misc Test Twice A Day 200units Rico Puente MD 10/06/2020 Trelegy Ellipta 100- 62.5-25mcg/Inh Aerosol 1 inhalation daily 3discs Lety Peterson, ANP 0 10/03/2020 Clobetasol Propionate 0.05% Soluti on Apply Twice A Day To Affected Scalp 50units Lety Peterson A INVENTORY CLERK 10/03/2020 Zofran 4mg Tablets 1 by mouth every four times a day nausea/prn 120tabs Estella Acevedo DO 1 Magnesium 500mg Capsules 1 by mouth every day Rico Puente MD 04/19/2020 Nystatin 020233Hahm/ML Suspension swish and spit 5ml as needed twice a day for thrush 120ml Ro JUAN PABLO Hoskins JR 02/10/2020 Levothyroxine Sodium 100mcg Tablet s Take One Tablet By Mouth Every Day 30tabs Rico Puente MD 01/06/[address] Take 2 Capsules By Mouth Every Day 180caps Ty Munguia 11/18/2018 Aspir-Low 81mg Tablets DR 1 by mouth every day 90tabs Rico Puente MD 09/15/2018 Montelukast Sodium 10mg Tablets Take 1 Tablet By Mouth Daily Before Bedtime 30tabs Rico Puente MD 03/12/2018 Venlafaxine HCL ER 150mg Caps ER 2 4HR 1 by mouth every day 30caps Cecil Mercado M.D. 12/30/2017 Calcium 600+D3 [id number] Tabl ets 1 every day by mouth bid ELOY [place] 018 Onetouch Ultra 2 w/Device Kit test twice a day and as directed e11.9 1units ELOY [place] 01/2018 Furosemide 20mg Tablets 1/ 2 daily 90tabs Sonal Keller, SKATING CARHOP 04/17/2017 Metformin HCL 500mg Tablets Take Two Tablets By Mouth Twice A Day 360tabs RENST Villareal P 11/08/2016 Ventolin HFA 108(90Base) mcg/Act A erosol 2 puffs four times a day as needed 16gm R06.02 Sonal Keller, PANKAJ P 09/03/2016 Onetouch Ultra Test Strips Strips usa bid or as directed E11.9 200units Rico Puente MD 03/2008 One Touch Ultra Lancets Use bid 100units Rico collado MD 08/02/2005 Clonazepam 0.5mg Tablets 1 by mouth twice a day Unknown History Medications Iron (Ferrous Sulfate) 325(65Fe) mg Tablets 1 by mouth every day with juice 30tabs Rico Puente MD 02/14/2021 - 02/23/2021 Doxycycline Monohydrate 100mg Caps ules 1 twice a day by mouth x 7 days 14caps Rico Puente MD 11/24/2020 - 02/23/2021 Medications Administered in Office Medication SIG Qnty Indications Ordering Provider Date Covid-19 vaccine, Unspecified Inj ection Unknown 09/01/2020 Covid-19 vaccine, Unspecified Inj ection Unknown 08/04/2020 Administration Of Flu Vaccine Inj ection MARIANO Villareal 04/12/2019 Reclast 1MG [id number] Injection MARIANO Villareal 02/03/2008 IV Infusion Up To 1 Hour Injection MARIANO Villareal 02/03/2008 Administration Of Flu Vaccine Inj ection Rico Puente MD 03/08/2003 Immunizations CPT Code Status Date Vaccine Lot # [id number] Given 06/16/2020 Pneumovax 23 [id number] Given 04/12/2019 Influenza Vaccin e Quadrivalent Preser/Antibiotic Free Im Use [id number] 97503 Given 09/09/2018 Pneumovax 23 [id number] U-PneuC Given 04/24/2016 Prevnar 13 [id number] Given 03/17/2008 Influenza Virus Vaccine [id number] Given 03/10/2007 Influenza Virus Vaccine 11864 Given 03/08/2003 Influenza Virus Vaccine [id number] Refused 03/26/2017 Influenza Vaccin e Quadrivalent Preser/Antibiotic Free Im Use Vital Signs Date Vital Result Comment 02/23/2021 2:25pm BP Systolic 132 mmHg BP Diastolic 72 mmHg Heart Rate 68 /min Height 62.0 inches 5'2" Weight 104.00 lb BMI (Body Mass Index) 19.0 kg/m2 02/07/2021 2:49pm BP Systolic 168 mmHg BP Diastolic 64 mmHg Heart Rate 61 /min Height 62.0 inches 5'2" Weight 105.00 lb O2 % BldC Oximetry 89 % BMI (Body Mass Index) 19.2 kg/m2 Results Test Acquired Date Facility Test Result H/L Range Note A1c 02/23/2021 [facility] , Fire Control Officer: [place] [address] [phone] Hba1c 6.5 % High <5.7 1 Est Avg Glucose 140 mg/dL High 60 - 110 Comprehensive Chem Profile 02/23/2021 [facility], Fire Control Officer: Dr [place] [address] [phone] Glucose 104 mg/dL High 74 - 99 2 BUN 20 mg/dL High 7 - 18 Creatinine 1.4 mg/dL High 0.6 - 1.3 Sodium 142 mEq/L 136 - 145 Potassium 3.7 mEq/L 3.5 - 5.1 Chloride 103 mEq/L 98 - 107 Carbon Dioxide 34 mEq/L High 21 - 32 Calcium 9.8 mg/dL 8.5 - 10.1 Alk. Phosphatase 57 mg/dL 46 - 116 Total Bilirubin 0.3 mg/dL 0.2 - 1.0 Ast (Sgot) 79 U/L High 15 - 37 3 Alt (SGPT) 100 U/L High 12 - 78 Albumin 3.2 g/dL Low 3.4 - 5.0 Total Protein 7.2 g/dL 6.4 - 8.2 A/G Ratio 0.80 CALC Low 1.00 - 1.90 GFR 37 mL/min Low >60 GFR 44 mL/min Low >60 4 Laboratory test finding 02/23/2021 [facility] Fire Control Officer: [address] [place] [address] [phone] Thyroid Stimulating Hormone 11.57 uIU/mL High 0. 36 - 3.74 Complete Blood Count 02/23/2021 [facility] [employer] [employer] [facility] diana schafer Fire Control Officer: [place] [address] [phone] WBC 6.1 x10*3/UL 4.1 - 10.9 RBC 3.90 x10*6/UL Low 4.20 - 6.30 Hemoglobin 10.9 g/dL Low 12.0 - 18.0 Hematocrit 33.8 % Low 37.0 - 51.0 MCV 86.6 fL 80.0 - 97.0 MCH 28.0 pg 26.0 - 32.0 MCHC 32.3 g/dL 31.0 - 38.0 RDW 14.8 % High 11.6 - 13.7 PLT 241 x10*3/UL 140 - 440 MPV 7.0 FL Low 7.8 - 11.0 Lymph % 23.3 % 10.0 - 58.5 Mid % 6.5 % 1.7 - 9.3 Neut % 70.2 % 37.0 - 92.0 Lymph # 1.4 x10*3/UL 0.6 - 4.1 Mid # 0.4 x10*3/UL 0.1 - 0.6 Neut # 4.3 x10*3/UL 2.0 - 7.8 Total Iron Binding Capacit 02/13/2021 [place] [address] [phone] Iron (Fe) 46 g/dL Low 50-170 Total Iron Binding Capacity 451 g/dL High 250-450 Percent Saturation 10.2 % Low 13.2-45.0 Laboratory test finding 02/13/2021 [facility] [address] [place] [address] [phone] Ferritin 16 NG/ML Normal 8-252 Laboratory test finding 02/07/2021 [facility] Fire Control Officer: [place] [address] [phone] Sed Rate 31 mm/hr High 0 - 15 Comprehensive Chem Profile 02/07/2021 [facility] Diane chacko Fire Control Officer: Dr Rico Puente [place], [place] [id number] [phone] Glucose 156 mg/dL High 74 - 99 5 BUN 22 mg/dL High 7 - 18 Creatinine 1.5 mg/dL High 0.6 - 1.3 Sodium 143 mEq/L 136 - 145 Potassium 4.2 mEq/L 3.5 - 5.1 Chloride 105 mEq/L 98 - 107 Carbon Dioxide 33 mEq/L High 21 - 32 Calcium 9.5 mg/dL 8.5 - 10.1 Alk. Phosphatase 50 mg/dL 46 - 116 Total Bilirubin 0.4 mg/dL 0.2 - 1.0 Ast (Sgot) 49 U/L High 15 - 37 Alt (SGPT) 51 U/L 12 - 78 Albumin 3.3 g/dL Low 3.4 - 5.0 Total Protein 7.2 g/dL 6.4 - 8.2 A/G Ratio 0.85 CALC Low 1.00 - 1.90 GFR 34 mL/min Low >60 GFR 41 mL/min Low >60 6 Complete Blood Count 02/07/2021 [facility] Fire Control Officer: [place] [address] [phone] WBC 4.7 x10*3/UL 4.1 - 10.9 RBC 3.80 x10*6/UL Low 4.20 - 6.30 Hemoglobin 10.7 g/dL Low 12.0 - 18.0 7 Hematocrit 33.0 % Low 37.0 - 51.0 MCV 86.7 fL 80.0 - 97.0 MCH 28.3 pg 26.0 - 32.0 MCHC 32.6 g/dL 31.0 - 38.0 RDW 14.4 % High 11.6 - 13.7 PLT 250 x10*3/UL 140 - 440 MPV 7.5 FL Low 7.8 - 11.0 Lymph % 24.7 % 10.0 - 58.5 Mid % 7.6 % 1.7 - 9.3 Neut % 67.7 % 37.0 - 92.0 Lymph # 1.1 x10*3/UL 0.6 - 4.1 Mid # 0.5 x10*3/UL 0.1 - 0.6 Neut # 3.1 x10*3/UL 2.0 - 7.8 Laboratory test finding 02/07/2021 [facility] [address] [place] [address] [phone] C Reactive Protein Quantitativ < 0.30 mg/dL Normal 0.00-0.30 A1c 10/20/2020 [facility] Fire Control Officer: Dr Rico Puente [place] [id number] [phone] Hba1c 6.6 % High <5.7 8 Est Avg Glucose 143 mg/dL High 60 - 110 Lipid Profile 10/20/2020 [facility] Fire Control Officer: [place] [address] [phone] Cholesterol 113 mg/dL Low 131 - 200 Triglycerides 34 mg/dL 30 - 150 HDL Cholesterol 78 mg/dL High 35 - 60 LDL (Calculated) 28 CALC Low 50 - 159 Laboratory test finding 10/20/2020 [facility] Fire Control Officer: [place] [address] [phone] Thyroid Stimulating Hormone 0.54 uIU/mL 0.3 6 - 3.74 Microalbumin/Creatinine Urine 10/20/2020 [facility] Fire Control Officer: [place] [address] [phone] Microalbumin Urine 37.9 mg/L High 1.3 - 20.0 Urine Creatinine 34.6 mg/dL 30.0 - 125.0 Microalb/Creat Ratio 109.5 ug/mg High 0.0 - 30.0 Basic Metabolic Panel 10/03/2020 [facility] Fire Control Officer: [place] [address] [phone] Glucose 205 mg/dL High 74 - 99 9 BUN 22 mg/dL High 7 - 18 Creatinine 1.0 mg/dL 0.6 - 1.3 Sodium 142 mEq/L 136 - 145 Potassium 4.4 mEq/L 3.5 - 5.1 Chloride 102 mEq/L 98 - 107 Carbon Dioxide 31 mEq/L 21 - 32 Calcium 9.3 mg/dL 8.5 - 10.1 GFR 54 mL/min Low >60 GFR >= 60 mL/min >60 10 Complete Blood Count 10/03/2020 [facility] Fire Control Officer: [place] [address] [phone] WBC 5.3 x10*3/UL 4.1 - 10.9 RBC 3.93 x10*6/UL Low 4.20 - 6.30 Hemoglobin 12.0 g/dL 12.0 - 18.0 Hematocrit 36.7 % Low 37.0 - 51.0 MCV 93.4 fL 80.0 - 97.0 MCH 30.6 pg 26.0 - 32.0 MCHC 32.8 g/dL 31.0 - 38.0 RDW 13.0 % 11.6 - 13.7 PLT 246 x10*3/UL 140 - 440 MPV 7.2 FL Low 7.8 - 11.0 Lymph % 25.0 % 10.0 - 58.5 Mid % 6.5 % 1.7 - 9.3 Neut % 68.5 % 37.0 - 92.0 Lymph # 1.3 x10*3/UL 0.6 - 4.1 Mid # 0.4 x10*3/UL 0.1 - 0.6 Neut # 3.6 x10*3/UL 2.0 - 7.8 1 Lab Result Notes: Pre-Diabetes 5.7 - 6.4 % Diabetes = or > 6.5% 2 100-125 mg/dL PRE-DIABET ES/FASTING >126 mg/dL DIABETES/FASTING 3 NOTE: AST,ALT,TSH VERIFIED 4 CHRONIC KIDNEY DISEASE STAGI NG PER NKF STAGE I & II GFR >= 60 NORMAL TO MILDLY DECREASED STAGE III GFR 30-59 MODERATELY DECREASED STAGE IV GFR 15-29 SEVERELY DECREASED STAGE V GFR <15 VERY LITTLE GFR LEFT ESRD GFR <15 ON [employer] 5 100-125 mg/dL PRE-DIABET ES/FASTING >126 mg/dL DIABETES/FASTING 6 CHRONIC KIDNEY DISEASE STAGI NG PER NKF STAGE I & II GFR >= 60 NORMAL TO MILDLY DECREASED STAGE III GFR 30-59 MODERATELY DECREASED STAGE IV GFR 15-29 SEVERELY DECREASED STAGE V GFR <15 VERY LITTLE GFR LEFT ESRD GFR <15 ON [employer] 7 NOTE: RESULT VERIFIED. 8 Lab Result Notes: Pre-Diabetes 5.7 - 6.4 % Diabetes = or > 6.5% 9 100-125 mg/dL PRE-DIABET ES/FASTING >126 mg/dL DIABETES/FASTING 10 CHRONIC KIDNEY DISEASE STAGI NG PER NKF STAGE I & II GFR >= 60 NORMAL TO MILDLY DECREASED STAGE III GFR 30-59 MODERATELY DECREASED STAGE IV GFR 15-29 SEVERELY DECREASED STAGE V GFR <15 VERY LITTLE GFR LEFT ESRD GFR <15 ON [employer] Procedures Date Code Description Status 02/23/2021 50281 Office/Outpatient Established Mo d MDM 30-39 Min Completed 02/23/2021 56237 EKG/Interpretation & Report Comp leted 01/29/2021 [id number] Diabetic Retinal Eye Exam Comple alfonso 10/20/2020 08008 Office/Outpatient Established Mo d MDM 30-39 Min Completed 10/03/2020 37854 Office/Outpatient Established Lo w MDM 20-29 Min Completed 01/21/2018 [id number] Diabetic Retinal Eye Exam Comple [facility] 11/18/2017 [id number] Bone Mineral Density Test Comple [facility] 11/18/2017 [id number] Mammogram Completed 04/08/2017 [id number] Diabetic Retinal Eye Exam Comple [facility] 02/11/2017 [id number] Colonoscopy Completed Medical Devices Description No Information Available Encounters Type Date Location Provider Dx Diagnosis Office Visit 02/23/2021 2[facility] I12.9 Hypertensive chronic kidney disease w st g 1-4/unsp chr kdny N18.32 Chronic kidney disease, stag e 3b C34.2 Malignant neoplasm of middle lobe, bronchus or lung 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 E78.00 Pure hypercholesterolemia, u nspecified J44.9 Chronic obstructive pulmonar y disease, unspecified R63.4 Abnormal weight loss Office Visit 10/20/2020 3:00p [facility] MD J44.1 Chronic obstructive pulmonary disease w (acute) exacerbation C34.2 Malignant neoplasm of middle lobe, bronchus or lung 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 Rico Puente MD 02/23/2021 E11.42 Type 2 diabetes mellitus with di abetic polyneuropathy Rico Puente MD 02/23/2021 E78.00 Pure hypercholesterolemia, unspe cified Rico Puente MD 02/23/2021 J44.9 Chronic obstructive pulmonary di sease, unspecified Rico Puente MD 02/23/2021 R63.4 Abnormal weight loss Rico Puente MD 02/13/2021 D64.9 Anemia, unspecified Contreras Puente, DO 02/13/2021 D64.9 Anemia, unspecified Lab Schedule 02/07/2021 R51.9 Headache, unspecified Jase Puente, DO 02/07/2021 R10.13 Epigastric pain Contreras stratton, DO 02/07/2021 G89.29 Other chronic pain Contreras collado, DO 02/07/2021 I12.9 Hypertensive chronic kidney dise ase with stage 1 through sta Contreras Puente, DO 02/07/2021 N18.32 Chronic kidney disease, stage 3b Contreras Puente, DO 02/07/2021 G24.01 Tardive dyskinesia Contreras collado, DO 10/20/2020 J44.1 Chronic obstructive pulmonary disease with (acute) exacerbation Rico Puente MD 10/20/2020 C34.2 Malignant neoplasm of middle lob e, bronchus or lung Rico Puente MD 10/20/2020 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 Rico Puente MD 10/20/2020 E11.42 Type 2 diabetes mellitus with di abetic polyneuropathy Rico Puente MD 10/20/2020 I12.9 Hypertensive chronic kidney dise ase with stage 1 through sta Rico Puente MD 10/20/2020 N18.32 Chronic kidney disease, stage 3b Rico Puente MD 10/20/2020 E78.00 Pure hypercholesterolemia, unspe cified Rico Puente MD 10/20/2020 Z13.89 Encounter for screening for othe r disorder Rico Puente MD 10/03/2020 R09.02 Hypoxemia MARIANO Villareal 10/03/2020 J44.1 Chronic obstructive pulmonary disease with (acute) exacerbation MARIANO Villareal 10/03/2020 C34.2 Malignant neoplasm of middle lob e, bronchus or lung MARIANO Villareal Plan of Treatment Future Appointment(s):* 07/24/2021 2:15 pm - Rico Puente MD at [facility] 02/23/2021 - Rico Puente MD* I12.9 Hypertensive chronic kidney disease with stage 1 through sta * N18.32 Chronic kidney disease, stage 3b * C34.2 Malignant neoplasm of middle lobe, bronchus or lung * E11.21 Type 2 diabetes mellitus with diabetic nephropathy* Comments:* ABC's meet goal.Diabetic foot and eye exams up to date. TLC discussed. Glycemic index discussed. * E11.42 Type 2 diabetes mellitus with diabetic polyneuropathy * E78.00 Pure hypercholesterolemia, unspecified * J44.9 Chronic obstructive pulmonary disease, unspecified * R63.4 Abnormal weight loss * All * New Medication:* Iron 325(65 Fe) mg - 1 by mouth every day with juice Functional Status Description No Information Available Mental Status Description No Information Available Referrals Refer to Reason for Referral Status Appt Date Yohannes Lewis MD CONSULT FOR SCREENING EGD/CO LONOSCOPY DX: EPIGASTRIC PAIN, REID Created [facility] [address] [facility] [address] [place] [id number] [phone] Yohannes Gonzalez MD CONSULT FOR DIABETIC EYE EXAM Created [facility] [address] [facility] [address] [facility], [address] [place] [address] [phone] [facility] CONSULT FOR PSORIASIS Scheduled 01/2021 [address] [facility] [address] [place] [address] [phone]
--- OUTSIDE RECORDS SUMMARY | 2021-04-23 17:18 | CCD | Continuity of Care Document ---
Author Author Rashmi EVANGELISTA Organization Unknown Address [address] [place] [address], [address] [place] [address] Phone [phone] Care Team Providers Care Linter Operator Name Role Phone LazJas martinezwilliams MUJICA AUTM [phone] Rico Puente MD AUTM [phone] Problems Active Problems Provider Date Type 2 diabetes mellitus Onset: 02/07/20 16 Essential hypertension Cirilo Clarke MD Onset: 04/22/2016 Hyperlipidemia Cirilo Clarke MD Onset: 04/22/2016 Hypothyroidism Cirilo Clarke MD Onset: 04/22/2016 Social History Type Date Description Comments Sex Unknown ETOH Use Denies alcohol use Tobacco Use Start: Unknown Patient is a current smoker, smo kes every day Smoking Status Reviewed: 05/21/19 Patient is a current smoker, smokes every day Allergies and adverse reactions Active Allergies Criticality Reaction | Severity Comments Date Penicillins Unable to assess criticality 02/07/2016 Januvia Unable to assess criticality 02/07/2016 Medications Active Medications SIG Qnty Indications Ordering Provide r Date Pentazocine-Naloxone HCL 50-0.5mg Tablets 1 by mouth every 4-6 hours as needed for pain 120tabs Juan Carlos Haley MD 09/18/2020 Tylenol With Codeine #4 300-60mg T ablets take one tablet every 4 hours as needed for pain, mdd 6 60tabs M48. 02 Juan Carlos Haley MD 07/06/2020 Medrol 4mg Tablets dose nael, take as directed on sheet 1tabs Garett Valle MD 12/09/2019 Bupropion HCL ER (SR) 150mg Tablets ER 12HR 1 by mouth every morning Alex Cook, [facility] Metformin HCL 500mg Tablets 1 by mouth daily with food Alex Cook, RPA 0 Hydroxyzine HCL 50mg Tablets 1 by mouth four times daily Kareem Shane, DO 0 Clonazepam 1mg Tablets 1 by mouth twice daily JamesKareem hawthorne, DO Pravastatin Sodium 40mg Tablets take one tablet by mouth every day at bedtime Zachary Cook, [facility] Amlodipine Besylate 5mg Tablets 1 by mouth every day Alex Cook, [facility] 0 Levothyroxine Sodium 88mcg Tablets 1 by mouth every day Zana Hyde MD Venlafaxine HCL 75mg Tablets 3 by mouth daily Kareem Shane, Topiramate 25mg Tablets 1by mouth at bedtime [facility], DO Immunizations Description No Information Available Vital Signs Date Vital Result Comment 12/11/2016 4:56pm Body Temperature 97.8 F Height 62.5 inches 5'2.50" Weight 158.00 lb BMI (Body Mass Index) 28.4 kg/m2 02/07/2016 1:15pm Body Temperature 97.7 F Height 63.5 inches 5'3.50" Weight 135.00 lb BMI (Body Mass Index) 23.5 kg/m2 Results Description No Information Available Procedures Date Code Description Status 04/04/2021 21910 Office/Outpatient Established w [facility] 20-29 Min Completed Medical Devices Description No Information Available Encounters Type Date Location Provider Dx Diagnosis Office Visit 04/04/2021 3:30p [place] Alex Evangelisat, P.A. M51.36 Other intervertebral disc degeneration, lumbar region M48.02 Spinal stenosis, cervical re gion M48.061 Spinal stenosis, lumbar jose a on without neurogenic natalya M19.012 Primary osteoarthritis, left shoulder Assessments Date Code Description Provider 04/04/2021 M51.36 Other intervertebral disc degene ration, lumbar region Alex Evangelista, P.AAdrienne 04/04/2021 M48.02 Spinal stenosis, cervical region Alex Evangelista, P.A. 04/04/2021 M48.061 Spinal stenosis, lum bar region without neurogenic claudication Ghulam Coronel 04/04/2021 M19.012 Primary osteoarthritis, left maury ulder Ghulam Coronel Plan of Treatment 04/04/2021 - Ghulam Coronel* M51.36 Other intervertebral disc degeneration, lumbar region* Follow up:* f/u 6 month for med recheck with [facility] * M48.02 Spinal stenosis, cervical region * M48.061 Spinal stenosis, lumbar region without neurogenic claudication * M19.012 Primary osteoarthritis, left shoulder Functional Status Description No Information Available Mental Status Description No Information Available Referrals Refer to Dr Reason for Referral Status Appt Date Alex Evangelista PA RECEIVED WRITTEN APPROVAL FO R PENTAZOCINE-NALOXONE 50MG.FAXED FORM TO PHARMACY.TC Created [address] [place] [address] [place] [address] [phone]
--- OUTSIDE RECORDS SUMMARY | 2021-04-23 17:18 | CCD | Continuity of Care Document ---
Author Author Rashmi FIGUEROA DO Organization Unknown Address [address] [place] [address] [address] [place] [address] Phone [phone] Care Team Providers Care Orthotic And Prosthetic Technician Name Role Phone Dev Del Angel MD AUTM [phone] Kareem Shane DO AUTM [phone] Rico Figueroa JR, MD AUTM Unavailable Yohannes Gonzalez MD AUTM [phone] Problems Active Problems Provider Date Type 2 [...] her diagnosis of lung cancer in 2019 Allergies and adverse reactions Active Allergies Criticality [...] SIG Qnty Indications Ordering Provide r Date Ondansetron HCL 4mg Tablets Take One Tablet By Mouth Four Times A Day as Needed Nausea 120tabs Estella Acevedo DO 04/05/2021 Iron 325(65Fe) mg Tablets 1 by mouth every day with juice 30tabs Rico Figueroa MD 02/23/2021 Rosuvastatin Calcium 40mg Tablets 1/2 by mouth every day 90tabs Contreras Figueroa, 02/08/20 Bisoprolol Fumarate 5mg Tablets take 1 tablet by mouth every day 30tabs Rico Figueroa MD 10/20/2020 Onetouch Delica Plus Lancets Extra Fine 33G Plus 33G Misc Test Twice A Day 200units Rico Figueroa MD 10/06/2020 Trelegy Ellipta 100- 62.5-25mcg/Inh Aerosol 1 inhalation daily 3discs Lety Peterson, ANP 0 10/03/2020 Clobetasol Propionate 0.05% Soluti on Apply Twice A Day To Affected Scalp 50units Lety Peterson A CAPTAIN WAITER 10/03/2020 Magnesium 500mg Capsules 1 by mouth every day Rico Figueroa MD 04/19/2020 Nystatin [id number] Suspension swish and spit 5ml as needed twice a day for thrush 120ml Ro maria a Mendoza JR, PA 02/10/2020 Levothyroxine Sodium 100mcg Tablet s Take One Tablet By Mouth Every Day 30tabs Rico Figueroa MD 01/06/[address] Take 2 Capsules By Mouth Every Day 180caps Ty Munguia 11/18/2018 Aspir-Low 81mg Tablets DR 1 by mouth every day 90tabs Rico Figueroa MD 09/15/2018 Montelukast Sodium 10mg Tablets Take 1 Tablet By Mouth Daily Before Bedtime 30tabs Rico Figueroa MD 03/12/2018 Venlafaxine HCL ER 150mg Caps ER 2 4HR 1 by mouth every day 30caps Cecil Mercado M.D. 12/30/2017 Calcium 600+D3 [id number] Tabl ets 1 every day by mouth bid ELOY [place] 018 Onetouch Ultra 2 w/Device Kit test twice a day and as directed e11.9 1units ELOY [place] 01/2018 Furosemide 20mg Tablets 1/ 2 daily 90tabs PANKAJ MoultonP 04/17/2017 Metformin HCL 500mg Tablets Take Two Tablets By Mouth Twice A Day 360tabs ERNST Villareal P 11/08/2016 Ventolin HFA 108(90Base) mcg/Act A erosol 2 puffs four times a day as needed 16gm R06.02 PANKAJ Moulton P 09/03/2016 Onetouch Ultra Test Strips Strips usa bid or as directed E11.9 200units Rico Figueroa MD 03/2008 One Touch Ultra Lancets Use bid 100units Rico collado MD 08/02/2005 Clonazepam 0.5mg Tablets 1 by mouth twice a day Unknown History Medications Iron (Ferrous Sulfate) 325(65Fe) mg Tablets 1 by mouth every day with juice 30tabs Rico Figueroa MD 02/14/2021 - 02/23/2021 Doxycycline Monohydrate 100mg Caps ules 1 twice a day by mouth x 7 days 14caps Rico Figueroa MD 11/24/2020 - 02/23/2021 Medications Administered in Office Medication SIG Qnty Indications Ordering Provider Date Covid-19 vaccine, Unspecified Inj ection Unknown 09/01/2020 Covid-19 vaccine, Unspecified Inj ection Unknown 08/04/2020 Administration Of Flu Vaccine Inj ection MARIANO Villareal 04/12/2019 Reclast 1MG [id number] Injection MARIANO Vlilareal 02/03/2008 IV Infusion Up To 1 Hour Injection MARIANO Villareal 02/03/2008 Administration Of Flu Vaccine Inj ection Rico Figueroa MD 03/08/2003 Immunizations CPT Code Status Date Vaccine Lot # 52614 Given 06/16/2020 Pneumovax 23 [id number] 13622 Given 04/12/2019 Influenza Vaccin e Quadrivalent Preser/Antibiotic Free Im Use [id number] 62382 Given 09/09/2018 Pneumovax 23 [id number] U-PneuC Given 04/24/2016 Prevnar 13 85641 Given 03/17/2008 Influenza Virus Vaccine 64311 Given 03/10/2007 Influenza Virus Vaccine 74489 Given 03/08/2003 Influenza Virus Vaccine 78435 Refused 03/26/2017 Influenza Vaccin e Quadrivalent Preser/Antibiotic [...] Date Facility Test Result H/L Range Note Complete Blood Count 02/23/2021 [facility] Paper Cutter: [place] [address] [phone] WBC 6.1 x10*3/UL 4.1 - 10.9 RBC [...] Neut # 4.3 x10*3/UL 2.0 - 7.8 A1c 02/23/2021 [facility] Paper Cutter: [place] [address] [phone] Hba1c 6.5 % High <5.7 1 Est Avg Glucose 140 mg/dL High 60 - 110 Comprehensive Chem Profile 02/23/2021 [facility] Paper Cutter: Dr Rico Figueroa [place], [place] [id number] [phone] Glucose 104 mg/dL High 74 - 99 [...] Low >60 4 Laboratory test finding 02/23/2021 [facility] [employer] diana cook Paper Cutter: Dr Rico Figueroa [place], [place] [id number] [phone] Thyroid Stimulating Hormone 11.57 uIU/mL High 0. 36 - 3.74 Total Iron Binding Capacit 02/13/[address] [id number] [phone] Iron (Fe) 46 g/dL Low 50-170 Total Iron Binding Capacity 451 g/dL High 250-450 Percent Saturation 10.2 % Low 13.2-45.0 Laboratory test finding 02/13/2021 [facility] [address] [place] [address] [phone] Ferritin 16 NG/ML Normal 8-252 Laboratory test finding 02/07/2021 [facility] [address] [id number] [phone] C Reactive Protein Quantitativ < 0.30 mg/dL Normal 0.00-0.30 Complete Blood Count 02/07/2021 [facility] Paper Cutter: [place] [address] [phone] WBC 4.7 x10*3/UL 4.1 - 10.9 RBC 3.80 x10*6/UL Low 4.20 - 6.30 Hemoglobin 10.7 g/dL Low 12.0 - 18.0 5 Hematocrit 33.0 % Low 37.0 - 51.0 [...] 2.0 - 7.8 Laboratory test finding 02/07/2021 [facility] Paper Cutter: [place] [address] [phone] Sed Rate 31 mm/hr High 0 - 15 Comprehensive Chem Profile 02/07/2021 [facility] diana Montilla Paper Cutter: [place] [address] [phone] Glucose 156 mg/dL High 74 - 99 6 BUN 22 mg/dL High 7 - 18 [...] Low >60 GFR 41 mL/min Low >60 7 A1c 10/20/2020 [facility] , Paper Cutter: [place] [address] [phone] Hba1c 6.6 % High <5.7 8 Est Avg Glucose 143 mg/dL High 60 - 110 Lipid Profile 10/20/2020 [facility] , Paper Cutter: Dr Rico [place] [address] [phone] Cholesterol 113 mg/dL Low 131 - 200 Triglycerides 34 mg/dL 30 - 150 HDL Cholesterol 78 mg/dL High 35 - 60 LDL (Calculated) 28 CALC Low 50 - 159 Laboratory test finding 10/20/2020 [facility], Paper Cutter: [place] [address] [phone] Thyroid Stimulating Hormone 0.54 uIU/mL 0.3 6 - 3.74 Microalbumin/Creatinine Urine 10/20/2020 [facility]: Dr Rico [place] [address] [phone] Microalbumin Urine 37.9 mg/L High 1.3 - 20.0 Urine Creatinine 34.6 mg/dL 30.0 - 125.0 Microalb/Creat Ratio 109.5 ug/mg High 0.0 - 30.0 1 Lab Result Notes: Pre-Diabetes 5.7 - [...] LITTLE GFR LEFT ESRD GFR <15 ON SUPERVISOR [employer] SHANK DEPARTMENT 5 NOTE: RESULT VERIFIED. 6 100-125 mg/dL PRE-DIABET ES/FASTING >126 mg/dL DIABETES/FASTING 7 CHRONIC KIDNEY DISEASE STAGI NG PER NKF STAGE I & II GFR >= 60 NORMAL TO MILDLY DECREASED STAGE III GFR 30-59 MODERATELY DECREASED STAGE IV GFR 15-29 SEVERELY DECREASED STAGE V GFR <15 VERY LITTLE GFR LEFT ESRD GFR <15 ON SUPERVISOR BIT [employer] SHANK DEPARTMENT 8 Lab Result Notes: Pre-Diabetes 5.7 - 6.4 % Diabetes = or > 6.5% Procedures Date Code Description Status 02/23/2021 01292 Office/Outpatient Established Mo d MDM 30-39 Min Completed 02/23/2021 30355 EKG/Interpretation & Report Comp leted 02/07/2021 81469 Office/Outpatient Established Mo d MDM 30-39 Min Completed 01/29/2021 [id number] Diabetic Retinal Eye Exam Comple alfonso 10/20/2020 80668 Office/Outpatient Established Mo d MDM 30-39 Min Completed 01/21/2018 [id number] Diabetic Retinal Eye Exam Comple alfonso 11/18/2017 [id number] Bone Mineral Density Test Comple alfonso 11/18/2017 [id number] Mammogram Completed 04/08/2017 [id number] Diabetic Retinal Eye Exam Comple alfonso 02/11/2017 [id number] Colonoscopy Completed Medical Devices Description No Information Available Encounters Type Date Location Provider Dx Diagnosis Office Visit 02/23/2021 2:30p [facility] I12.9 Hypertensive chronic kidney disease w [...] unspecified R63.4 Abnormal weight loss Office Visit 02/07/2021 2:40p [facility] DO R51.9 Headache, unspecified R10.13 Epigastric pain G89.29 Other chronic pain I12.9 Hypertensive chronic kidney disease w stg 1-4/unsp chr kdny N18.32 Chronic kidney disease, stag e 3b 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 Rico Figueroa MD 02/23/2021 E78.00 Pure hypercholesterolemia, unspe cified Rico Figueroa MD 02/23/2021 J44.9 Chronic obstructive pulmonary di sease, unspecified Rico Figueroa MD 02/23/2021 R63.4 Abnormal weight loss Rico Figueroa MD 02/13/2021 D64.9 Anemia, unspecified Contreras Figueroa, DO 02/13/2021 D64.9 Anemia, unspecified Lab Schedule 02/07/2021 R51.9 Headache, unspecified Jase Figueroa, DO 02/07/2021 R10.13 Epigastric pain Contreras stratton, DO 02/07/2021 G89.29 Other chronic pain Contreras collado, DO 02/07/2021 I12.9 Hypertensive chronic kidney dise ase with stage 1 through sta Contreras Figueroa, DO 02/07/2021 N18.32 Chronic kidney disease, stage 3b Contreras Figueroa, DO 02/07/2021 G24.01 Tardive dyskinesia Contreras collado DO 10/20/2020 J44.1 Chronic obstructive pulmonary disease with (acute) exacerbation Rico Figueroa MD 10/20/2020 C34.2 Malignant neoplasm of middle lob e, bronchus or lung Rico Figueroa MD 10/20/2020 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 02/23/2021 - Rico Figueroa MD* I12.9 Hypertensive chronic kidney disease with [...] SCREENING EGD/CO LONOSCOPY DX: EPIGASTRIC PAIN, REID Patient Notified 05/15/2021 [facility] Medical Practice [address] [id number] [phone] Yohannes Gonzalez MD CONSULT FOR DIABETIC EYE EXAM Created [place] [facility] [address] [facility], [address] [facility] [address] [phone] [facility] CONSULT FOR PSORIASIS Scheduled 01/2021 [address] [facility] [address] [place], [place] [address] [phone]
--- OUTSIDE RECORDS SUMMARY | 2021-04-23 17:18 | CCD | Continuity of Care Document ---
Author Author Rashmi EVANGELISTA Organization Unknown Address [address] [place] [address], it e [address] [place] [address] Phone [phone] Care Team Providers Care Pawn Broker Name Role Phone LazJas martinezwilliams MUJICA AUTM [phone] Rico Puente MD AUTM [phone] Problems Active Problems Provider Date Type 2 [...] 1 by mouth every morning Alex Cook, [facility] Metformin HCL 500mg Tablets 1 by mouth daily with food Alex Cook, RPA 0 Hydroxyzine HCL 50mg Tablets 1 by mouth four times daily Kareem Shane, DO 0 Clonazepam 1mg Tablets 1 by mouth twice daily JamesKareem hawthorne, DO Pravastatin Sodium 40mg Tablets take one tablet by mouth every day at bedtime Zachary Cook, [facility] Amlodipine Besylate 5mg Tablets 1 by mouth every day Alex Cook, [facility] 0 Levothyroxine Sodium 88mcg Tablets 1 by mouth every day Zana Hyde MD Venlafaxine HCL 75mg Tablets 3 by mouth daily Kareem Shane, Topiramate 25mg Tablets 1by mouth at bedtime [facility], DO Immunizations Description No Information Available Vital Signs Date Vital Result Comment 12/11/2016 4:56pm Body Temperature 97.8 F Height 62.5 inches 5'2.50" Weight 158.00 lb BMI (Body Mass Index) 28.4 kg/m2 02/07/2016 1:15pm Body Temperature 97.7 F Height 63.5 inches 5'3.50" Weight 135.00 lb BMI (Body Mass Index) 23.5 kg/m2 Results Description No Information Available Procedures Date Code Description Status 04/04/2021 27036 Office/Outpatient Established w [facility] 20-29 Min Completed Medical Devices Description No Information Available Encounters Type Date Location Provider Dx Diagnosis Office Visit 04/04/2021 3:30p [place] Alex Evangelista, P.A. M51.36 Other intervertebral disc degeneration, lumbar [...] R PENTAZOCINE-NALOXONE 50MG.FAXED FORM TO PHARMACY.TC Created [address] [place] [address] [address] [place] [address] [phone]
--- OUTSIDE RECORDS SUMMARY | 2021-04-23 17:18 | CCD | Continuity of Care Document ---
Author Author Rashmi Puente MD Organization Unknown Address [address] [facility] Evangelist [address] [place] [address] Phone [phone] Care Team Providers Care Explosion Welder Name Role Phone Dev Del Angel MD AUTM [phone] Kareem Shane DO AUTM [phone] Rico Puente JR, MD AUTM Unavailable Yohannes Gonzalez MD AUTM [phone] Problems Active Problems Provider Date Type 2 [...] Qnty Indications Ordering Provide r Date Iron (Ferrous Sulfate) 325(65Fe) mg Tablets 1 by mouth every day with juice 30tabs Lazaro Puente DO 02/14/2021 Rosuvastatin Calcium 40mg Tablets 1/2 by mouth every day 90tabs Contreras Puente DO 02/08/20 Bisoprolol Fumarate 5mg Tablets take 1 [...] To Affected Scalp 50units Lety Peterson A TAXICAB DRIVER 10/03/2020 Zofran 4mg Tablets 1 by mouth every four times a day nausea/prn 120tabs Estella Acevedo DO 1 Magnesium 500mg Capsules 1 by mouth every day Rico Puente MD 04/19/2020 Nystatin [id number] Suspension swish and spit 5ml as needed [...] 30caps Cecil Mercado M.D. 12/30/2017 Calcium 600+D3 [id number] Tabl ets 1 every day by mouth bid ELOY Madrid 018 Onetouch Ultra 2 w/Device Kit test twice a day and as directed e11.9 1units ELOY [place] 01/2018 Furosemide 20mg Tablets 1/ 2 daily 90tabs Sonal Keller, DEVELOPMENT SPECIALIST 04/17/2017 Metformin HCL 500mg Tablets Take Two Tablets By Mouth Twice A Day 360tabs ERNST Villareal P 11/08/2016 Ventolin HFA 108(90Base) mcg/Act A erosol 2 puffs four times a day as needed 16gm R06.02 Sonal Keller, P 09/03/2016 Onetouch Ultra Test Strips Strips usa bid or as directed E11.9 200units Rico Puente MD 03/2008 One Touch Ultra Lancets Use bid 100units Rico collado MD 08/02/2005 Clonazepam 0.5mg Tablets 1 by mouth twice a day Unknown History Medications Doxycycline Monohydrate 100mg Caps ules 1 twice a day by mouth x 7 days 14caps Rico Puente MD 11/24/2020 - 02/23/2021 Medications Administered in Office Medication SIG Qnty Indications Ordering Provider Date Covid-19 vaccine, Unspecified Inj ection Unknown 09/01/2020 Covid-19 vaccine, Unspecified Inj ection Unknown 08/04/2020 Administration Of Flu Vaccine Inj ection Lety Peterson, MARIANO 04/12/2019 Reclast 1MG [id number] Injection Lety Peterson, MARIANO 02/03/2008 IV Infusion Up To 1 Hour Injection Lety Peterson, MARIANO 02/03/2008 Administration Of Flu Vaccine Inj ection Rico Puente MD 03/08/2003 Immunizations CPT Code Status Date Vaccine Lot # 78299 Given 06/16/2020 Pneumovax 23 [id number] 13525 Given 04/12/2019 Influenza Vaccin e Quadrivalent Preser/Antibiotic Free Im Use [id number] 60245 Given 09/09/2018 Pneumovax 23 [id number] [facility] Given 04/24/2016 Prevnar 13 67059 Given 03/17/2008 Influenza Virus Vaccine 53990 Given 03/10/2007 Influenza Virus Vaccine 00766 Given 03/08/2003 Influenza Virus Vaccine 28429 Refused 03/26/2017 Influenza Vaccin e Quadrivalent Preser/Antibiotic [...] Date Facility Test Result H/L Range Note Total Iron Binding Capacit 02/13/2021 [facility] [address] [place] [address] [phone] Iron (Fe) 46 g/dL Low 50-170 Total Iron Binding Capacity 451 g/dL High 250-450 Percent Saturation 10.2 % Low 13.2-45.0 Laboratory test finding 02/13/[address] [address] [phone] Ferritin 16 NG/ML Normal 8-252 Laboratory test finding 02/07/[address] [address] [phone] C Reactive Protein Quantitativ < 0.30 mg/dL Normal 0.00-0.30 Complete Blood Count 02/07/2021 [facility] Gang Miner: [place] [address] [phone] WBC 4.7 x10*3/UL 4.1 - 10.9 RBC 3.80 x10*6/UL Low 4.20 - 6.30 Hemoglobin 10.7 g/dL Low 12.0 - 18.0 1 Hematocrit 33.0 % Low 37.0 - 51.0 [...] 2.0 - 7.8 Laboratory test finding 02/07/2021 [facility] Gang Miner: [place] [address] [phone] Sed Rate 31 mm/hr High 0 - 15 Comprehensive Chem Profile 02/07/2021 [facility] Gang Miner: [place] [address] [phone] Glucose 156 mg/dL High 74 - 99 2 BUN 22 mg/dL High 7 - 18 [...] Low >60 GFR 41 mL/min Low >60 3 A1c 10/20/2020 [facility] Gang Miner: [place] [address] [phone] Hba1c 6.6 % High <5.7 4 Est Avg Glucose 143 mg/dL High 60 - 110 Lipid Profile 10/20/2020 [facility] Gang Miner: [place] [address] [phone] Cholesterol 113 mg/dL Low 131 - 200 Triglycerides 34 mg/dL 30 - 150 HDL Cholesterol 78 mg/dL High 35 - 60 LDL (Calculated) 28 CALC Low 50 - 159 Laboratory test finding 10/20/2020 [facility] Gang Miner: Dr Rico Puente [place] [address] [phone] Thyroid Stimulating Hormone 0.54 uIU/mL 0.3 6 - 3.74 Microalbumin/Creatinine Urine 10/20/2020 [facility] Gang Miner: Dr Rico Puente [place] [address]07 [phone] Microalbumin Urine 37.9 mg/L High 1.3 - 20.0 Urine Creatinine 34.6 mg/dL 30.0 - 125.0 Microalb/Creat Ratio 109.5 ug/mg High 0.0 - 30.0 Basic Metabolic Panel 10/03/2020 [facility] Gang Miner: Dr Rico Puente [place] [address] [phone] Glucose 205 mg/dL High 74 - 99 5 BUN 22 mg/dL High 7 - 18 Creatinine 1.0 mg/dL 0.6 - 1.3 Sodium 142 mEq/L 136 - 145 Potassium 4.4 mEq/L 3.5 - 5.1 Chloride 102 mEq/L 98 - 107 Carbon Dioxide 31 mEq/L 21 - 32 Calcium 9.3 mg/dL 8.5 - 10.1 GFR 54 mL/min Low >60 GFR >= 60 mL/min >60 6 Complete Blood Count 10/03/2020 [facility] Gang Miner: Dr Rico Puente [place] [id number] [phone] WBC 5.3 x10*3/UL 4.1 - 10.9 RBC [...] # 3.6 x10*3/UL 2.0 - 7.8 1 NOTE: RESULT VERIFIED. 2 100-125 mg/dL PRE-DIABET ES/FASTING >126 mg/dL DIABETES/FASTING 3 CHRONIC KIDNEY DISEASE STAGI NG PER NKF STAGE I & II GFR >= 60 NORMAL TO MILDLY DECREASED STAGE III GFR 30-59 MODERATELY DECREASED STAGE IV GFR 15-29 SEVERELY DECREASED STAGE V GFR <15 VERY LITTLE GFR LEFT ESRD GFR <15 ON GRADUATE NURSE 4 Lab Result Notes: Pre-Diabetes 5.7 - 6.4 % Diabetes = or > 6.5% 5 100-125 mg/dL PRE-DIABET ES/FASTING >126 mg/dL DIABETES/FASTING 6 CHRONIC KIDNEY DISEASE STAGI NG PER NKF STAGE I & II GFR >= 60 NORMAL TO MILDLY DECREASED STAGE III GFR 30-59 MODERATELY DECREASED STAGE IV GFR 15-29 SEVERELY DECREASED STAGE V GFR <15 VERY LITTLE GFR LEFT ESRD GFR <15 ON GRADUATE NURSE Procedures Date Code Description Status 01/29/2021 [id number] Diabetic Retinal Eye Exam [facility] 10/20/2020 31159 Office/Outpatient Established Mo d MDM 30-39 Min Completed 10/03/2020 71318 Office/Outpatient Established Lo w MDM 20-29 Min Completed 01/21/2018 [id number] Diabetic Retinal Eye Exam [facility] 11/18/2017 [id number] Bone Mineral Density Test [facility] 11/18/2017 [id number] Mammogram Completed 04/08/2017 [id number] Diabetic Retinal Eye Exam [facility] 02/11/2017 [id number] Colonoscopy Completed Medical Devices Description No Information Available Encounters Type Date Location Provider Dx Diagnosis Office Visit 10/20/2020 3:00p [facility] MD J44.1 Chronic obstructive pulmonary disease w [...] for other disorder Office Visit 10/03/2020 8:40a [facility] Peterson, ANP R09.02 Hypoxemia J44.1 Chronic obstructive pulmonar y disease w (acute) exacerbation C34.2 Malignant neoplasm of middle lobe, bronchus or lung Assessments Date Code Description Provider 02/13/2021 D64.9 Anemia, unspecified Contreras Puente, DO [...] disorder Rico Puente MD 10/03/2020 R09.02 Hypoxemia MAIRANO Villareal 10/03/2020 J44.1 Chronic obstructive pulmonary disease with (acute) exacerbation MARIANO Villareal 10/03/2020 C34.2 Malignant neoplasm of middle lob e, bronchus or lung MARIANO Villareal Plan of Treatment No Information Available Functional Status Description No Information Available Mental Status Description No Information Available Referrals Refer to Reason for Referral Status Appt Date Yohannes Gonzalez MD CONSULT FOR DIABETIC EYE EXAM Created [place] [facility] [address] [facility] [address] [facility] [address] [phone] [facility] CONSULT FOR PSORIASIS Scheduled 01/2021 [address] [facility] [address] [place] [address] [phone]
--- OUTSIDE RECORDS SUMMARY | 2021-04-23 17:18 | CCD | Continuity of Care Document ---
Author Author Rashmi EVANGELISTA Organization Unknown Address [address] [place] [address], it [address] [place] [address] Phone [phone] Care Team Providers Care Magazine Repairer Name Role Phone LazJas martinezwilliams MUJICA AUTM [phone] Rico Puente MD AUTM [phone] Problems Active Problems Provider Date Type 2 [...] 1 by mouth every morning Alex Cook, [facility] Metformin HCL 500mg Tablets 1 by mouth daily with food Alex Cook, RPA 0 Hydroxyzine HCL 50mg Tablets 1 by mouth four times daily Kareem Shane, DO 0 Clonazepam 1mg Tablets 1 by mouth twice daily JamesKareem hawthorne, DO Pravastatin Sodium 40mg Tablets take one tablet by mouth every day at bedtime Zachary Cook, [facility] Amlodipine Besylate 5mg Tablets 1 by mouth every day Alex Cook, [facility] 0 Levothyroxine Sodium 88mcg Tablets 1 by mouth every day Zana Hyde MD Venlafaxine HCL 75mg Tablets 3 by mouth daily Kareem Shane, Topiramate 25mg Tablets 1by mouth at bedtime [facility] DO Immunizations Description No Information Available Vital Signs Date Vital Result Comment 12/11/2016 4:56pm Body Temperature 97.8 F Height 62.5 inches 5'2.50" Weight 158.00 lb BMI (Body Mass Index) 28.4 kg/m2 02/07/2016 1:15pm Body Temperature 97.7 F Height 63.5 inches 5'3.50" Weight 135.00 lb BMI (Body Mass Index) 23.5 kg/m2 Results Description No Information Available Procedures Date Code Description Status 04/04/2021 51731 Office/Outpatient Established w [facility] 20-29 Min Completed Medical Devices Description No Information Available Encounters Type Date Location Provider Dx Diagnosis Office Visit 04/04/2021 3:30p [place] Alex Evangelista, P.A. M51.36 Other intervertebral disc [...] R PENTAZOCINE-NALOXONE 50MG.FAXED FORM TO PHARMACY.TC Created [address] [place] [address] [place] [address] [phone]
--- OUTSIDE RECORDS SUMMARY | 2021-04-23 17:19 | CCD | Continuity of Care Document ---
Author Author Lab Rashmi Lara Organization Unknown Address [address] [address] Phone Unavailable Care Team Providers Care Supervisor Dry Cleaning Name Role Phone Dev Del Angel MD AUTM [phone] Kareem Shane DO AUTM [phone] Rico Puente JR, MD AUTM Unavailable Yohannes Gonzalez MD AUTM [phone] Problems Active Problems Provider Date Type 2 [...] day 90tabs Contreras Puente DO 02/08/20 21 Doxycycline Monohydrate 100mg Caps ules 1 twice a day by mouth x 7 days 14caps Rico Puente MD 11/24/2020 Bisoprolol Fumarate 5mg Tablets take 1 tablet by mouth every day 30tabs Rico Puente MD 10/20/2020 Onetouch Delica Plus Lancets Extra Fine 33G Plus 33G Misc Test Twice A Day 200units Rico Puente MD 10/06/2020 Trelegy Ellipta 100- 62.5-25mcg/Inh Aerosol 1 inhalation daily 3discs Lety Peterson, ANP 0 10/03/2020 Clobetasol Propionate 0.05% Soluti on Apply Twice A Day To Affected Scalp 50units Lety Peterson, A DIDACTIC INSTRUCTOR 10/03/2020 Zofran 4mg Tablets 1 by mouth every four times a day nausea/prn 120tabs Estella Acevedo DO 1 Magnesium 500mg Capsules 1 by mouth every day Rico Puente MD 04/19/2020 Nystatin [id number]/ML Suspension swish and spit 5ml as needed [...] 30caps Cecil Mercado M.D. 12/30/2017 Calcium 600+D3 [id number] Tabl ets 1 every day by mouth bid ELOY [place] 018 Onetouch Ultra 2 w/Device Kit test twice a day and as directed e11.9 1units Chuy Junior, BALL MILL OPERATOR 01/2018 Furosemide 20mg Tablets 1/ 2 daily 90tabs Sonal Keller, BALL MILL OPERATOR 04/17/2017 Metformin HCL 500mg Tablets Take Two [...] 1 by mouth twice a day Unknown Medications Administered in Office Medication SIG Qnty Indications Ordering Provider Date Covid-19 vaccine, Unspecified Inj ection Unknown 09/01/2020 Covid-19 vaccine, Unspecified Inj ection Unknown 08/04/2020 Administration Of Flu Vaccine Inj ection MARIANO Villareal 04/12/2019 Reclast 1MG [id number] Injection MARIANO Villareal 02/03/2008 IV Infusion Up To 1 Hour Injection MARIANO Villareal 02/03/2008 Administration Of Flu Vaccine Inj ection Rico Puente MD 03/08/2003 Immunizations CPT Code Status Date Vaccine Lot # [id number] Given 06/16/2020 Pneumovax 23 [id number] Given 04/12/2019 Influenza Vaccin e Quadrivalent Preser/Antibiotic Free Im Use [id number] 33810 Given 09/09/2018 Pneumovax 23 [id number] U-PneuC Given 04/24/2016 Prevnar 13 95372 Given 03/17/2008 Influenza Virus Vaccine 69669 Given 03/10/2007 Influenza Virus Vaccine 26069 Given 03/08/2003 Influenza Virus Vaccine 88920 Refused 03/26/2017 Influenza Vaccin e Quadrivalent Preser/Antibiotic Free Im Use Vital Signs Date Vital Result Comment 02/07/2021 2:49pm BP Systolic 168 mmHg BP Diastolic 64 mmHg Heart Rate 61 /min Height 62.0 inches 5'2" Weight 105.00 lb O2 % BldC Oximetry 89 % BMI (Body Mass Index) 19.2 kg/m2 10/20/2020 2:40pm BP Systolic 136 mmHg BP Diastolic 62 mmHg Heart Rate 72 /min Height 62.0 inches 5'2" Weight 108.38 lb O2 % BldC Oximetry 90 % RM Air BMI (Body Mass Index) 19.8 kg/m2 Results Test Acquired Date Facility Test Result H/L Range Note Total Iron Binding Capacit 02/13/[address] [id number] [phone] Iron (Fe) 46 g/dL Low 50-170 Total Iron Binding Capacity 451 g/dL High 250-450 Percent Saturation 10.2 % Low 13.2-45.0 Laboratory test finding 02/13/[address] [address] [phone] Ferritin 16 NG/ML Normal 8-252 Laboratory test finding 02/07/[address] [id number] [phone] C Reactive Protein Quantitativ < 0.30 mg/dL Normal 0.00-0.30 Complete Blood Count 02/07/2021 [facility] Registration Clerk: [place] [address] [phone] WBC 4.7 x10*3/UL 4.1 - 10.9 RBC [...] 2.0 - 7.8 Laboratory test finding 02/07/2021 [facility], Registration Clerk: [place] [address] [phone] Sed Rate 31 mm/hr High 0 - 15 Comprehensive Chem Profile 02/07/2021 [facility], Registration Clerk: [place] [address] [phone] Glucose 156 mg/dL High 74 - 99 [...] 41 mL/min Low >60 3 A1c 10/20/2020 [facility] Registration Clerk: [place] [address] [phone] Hba1c 6.6 % High <5.7 4 Est Avg Glucose 143 mg/dL High 60 - 110 Lipid Profile 10/20/2020 [facility] Registration Clerk: [place] [address] [phone] Cholesterol 113 mg/dL Low 131 - 200 Triglycerides 34 mg/dL 30 - 150 HDL Cholesterol 78 mg/dL High 35 - 60 LDL (Calculated) 28 CALC Low 50 - 159 Laboratory test finding 10/20/2020 [facility] Registration Clerk: [place] [address] [phone] Thyroid Stimulating Hormone 0.54 uIU/mL 0.3 6 - 3.74 Microalbumin/Creatinine Urine 10/20/2020 [facility] Registration Clerk: [place] [address] [phone] Microalbumin Urine 37.9 mg/L High 1.3 - 20.0 Urine Creatinine 34.6 mg/dL 30.0 - 125.0 Microalb/Creat Ratio 109.5 ug/mg High 0.0 - 30.0 Basic Metabolic Panel 10/03/2020 [facility] Registration Clerk: [place] [address] [phone] Glucose 205 mg/dL High 74 - 99 [...] mL/min >60 6 Complete Blood Count 10/03/2020 [facility], pc Registration Clerk: [place] [address] [phone] WBC 5.3 x10*3/UL 4.1 - 10.9 RBC [...] LITTLE GFR LEFT ESRD GFR <15 ON SHOE DESIGNER 4 Lab Result Notes: Pre-Diabetes 5.7 - [...] LITTLE GFR LEFT ESRD GFR <15 ON SHOE DESIGNER Procedures Date Code Description Status 01/29/2021 [id number] Diabetic Retinal Eye Exam [facility] 10/20/2020 02492 Office/Outpatient Established Mo d MDM 30-39 Min Completed 10/03/2020 28408 Office/Outpatient Established Lo w MDM 20-29 Min Completed 01/21/2018 [id number] Diabetic Retinal Eye Exam [facility] 11/18/2017 [id number] Bone Mineral Density Test [facility] 11/18/2017 [id number] Mammogram Completed 04/08/2017 [id number] Diabetic Retinal Eye Exam [facility] 02/11/2017 [id number] Colonoscopy Completed Medical Devices Description No Information Available Encounters Type Date Location Provider Dx Diagnosis Office Visit 10/20/2020 [facility]p [facility] J44.1 Chronic obstructive pulmonary disease w [...] for other disorder Office Visit 10/03/2020 8:40a [facility] Lety Peterson, ANP R09.02 Hypoxemia [...] MARIANO Villareal Plan of Treatment Future Appointment(s):* 02/23/2021 2:30 pm - Rico Puente MD at [facility] 04/19/2020 - Rico Puente MD* E11.21 Type 2 diabetes mellitus with diabetic nephropathy* Comments:* Diabetic foot and eye exams up to date. TLC discussed. Glycemic index discussed. * E11.42 Type 2 diabetes mellitus with diabetic polyneuropathy * J44.9 Chronic obstructive pulmonary disease, unspecified * C34.2 Malignant neoplasm of middle lobe, bronchus or lung * F17.210 Nicotine dependence, cigarettes, uncomplicated* Comments:* Smoking cessation discussed. * Z71.6 Tobacco abuse counseling * I12.9 Hypertensive chronic kidney disease with stage 1 through sta * N18.32 Chronic kidney disease, stage 3b * E78.00 Pure hypercholesterolemia, unspecified * F41.9 Anxiety disorder, unspecified * All * New Medication:* Magnesium 500 mg - 1 by mouth every day Functional Status Description No Information Available Mental Status Description No Information Available Referrals Refer to Reason for Referral Status Appt Date Yohannes Gonzalez MD CONSULT FOR DIABETIC EYE EXAM Created [place] [facility] [address] [facility], [address] [facility] [address] [phone] [facility] CONSULT FOR PSORIASIS Scheduled 01/2021 [address] [facility] [address] [place] [address] [phone]
--- OUTSIDE RECORDS SUMMARY | 2021-04-23 17:19 | CCD | Continuity of Care Document ---
Author Author Rashmi FIGUEROA DO Organization Unknown Address [address] [place] [address] [address] [place] [address] Phone [phone] Care Team Providers Care Lending Consultant Name Role Phone Dev Del Angel MD AUTM [phone] Kareem Shane DO AUTM [phone] Rico Figueroa JR, MD AUTM Unavailable Yohannes Gonzalez MD AUTM [phone] Problems Active Problems Provider Date Type 2 [...] SIG Qnty Indications Ordering Provide r Date Rosuvastatin Calcium 40mg Tablets 1/2 by mouth every day 90tabs Contreras Figueroa DO 02/08/20 21 Doxycycline Monohydrate 100mg Caps ules 1 twice a day by mouth x 7 days 14caps Rico Figueroa MD 11/24/2020 Bisoprolol Fumarate 5mg Tablets take [...] To Affected Scalp 50units Lety Peterson, A HEALTH PLAN SPECIALIST 10/03/2020 Zofran 4mg Tablets 1 by mouth every four times a day nausea/prn 120tabs Estella Acevedo DO 1 Magnesium 500mg Capsules 1 by mouth every day Rico Figueroa MD 04/19/2020 Nystatin 353749Teyy/ML Suspension swish and spit 5ml as needed [...] 30caps Cecil Mercado M.D. 12/30/2017 Calcium 600+D3 [id number] Tabl ets 1 every day by mouth bid ELOY [place] 018 Onetouch Ultra 2 w/Device Kit test twice a day and as directed e11.9 1units ELOY [place] 01/2018 Furosemide 20mg Tablets 1/ 2 daily 90tabs Sonal Keller, MEDICAL RECORDS ADMINISTRATOR 04/17/2017 Metformin HCL 500mg Tablets Take Two [...] Inj ection MARIANO Villareal 04/12/2019 Reclast 1MG [id number] Injection MARIANO Villareal 02/03/2008 IV Infusion Up To 1 Hour Injection MARIANO Villareal 02/03/2008 Administration Of Flu Vaccine Inj ection Rico Figueroa MD 03/08/2003 Immunizations CPT Code Status Date Vaccine Lot # 31059 Given 06/16/2020 Pneumovax 23 [id number] 28363 Given 04/12/2019 Influenza Vaccin e Quadrivalent Preser/Antibiotic Free Im Use 043394 66295 Given 09/09/2018 Pneumovax 23 [id number] U-PneuC Given 04/24/2016 Prevnar 13 72729 Given 03/17/2008 Influenza Virus Vaccine 05291 Given 03/10/2007 Influenza Virus Vaccine 38664 Given 03/08/2003 Influenza Virus Vaccine 60798 Refused 03/26/2017 Influenza Vaccin e Quadrivalent Preser/Antibiotic [...] Date Facility Test Result H/L Range Note Laboratory test finding 02/07/2021 [facility] [address] [place], [place] [address] [phone] C Reactive Protein Quantitativ < 0.30 mg/dL Normal 0.00-0.30 Complete Blood Count 02/07/2021 [facility] diana schafer Rubber Block Layer: [place] [address] [phone] WBC 4.7 x10*3/UL 4.1 - 10.9 RBC [...] 2.0 - 7.8 Laboratory test finding 02/07/2021 [facility] diana cook Rubber Block Layer: [place] [address] [phone] Sed Rate 31 mm/hr High 0 - 15 Comprehensive Chem Profile 02/07/2021 [facility] [place]illa Rubber Block Layer: Dr [place] [id number] [phone] Glucose 156 mg/dL High 74 - 99 [...] 41 mL/min Low >60 3 A1c 10/20/2020 [facility] , Rubber Block Layer: Dr Rico Figueroa [place] [address]33591 [phone] Hba1c 6.6 % High <5.7 4 Est Avg Glucose 143 mg/dL High 60 - 110 Lipid Profile 10/20/2020 [facility] , Rubber Block Layer: [place] [address] [phone] Cholesterol 113 mg/dL Low 131 - 200 Triglycerides 34 mg/dL 30 - 150 HDL Cholesterol 78 mg/dL High 35 - 60 LDL (Calculated) 28 CALC Low 50 - 159 Laboratory test finding 10/20/2020 [facility], Rubber Block Layer: [place] [address] [phone] Thyroid Stimulating Hormone 0.54 uIU/mL 0.3 6 - 3.74 Microalbumin/Creatinine Urine 10/20/2020 [facility], Rubber Block Layer: Dr Rico Figueroa [place] [address] [phone] Microalbumin Urine 37.9 mg/L High 1.3 - 20.0 Urine Creatinine 34.6 mg/dL 30.0 - 125.0 Microalb/Creat Ratio 109.5 ug/mg High 0.0 - 30.0 Basic Metabolic Panel 10/03/2020 [facility] Rubber Block Layer: [place] [address] [phone] Glucose 205 mg/dL High 74 - 99 [...] mL/min >60 6 Complete Blood Count 10/03/2020 [facility] Rubber Block Layer: [place] [address] [phone] WBC 5.3 x10*3/UL 4.1 - 10.9 RBC [...] LITTLE GFR LEFT ESRD GFR <15 ON WOOD WINDOW AND DOOR CRAFTSMAN 4 Lab Result Notes: Pre-Diabetes 5.7 - [...] LITTLE GFR LEFT ESRD GFR <15 ON WOOD WINDOW AND DOOR CRAFTSMAN Procedures Date Code Description Status 01/29/2021 [id number] Diabetic Retinal Eye Exam [facility] 10/20/2020 20792 Office/Outpatient Established Mo d MDM 30-39 Min Completed 10/03/2020 00931 Office/Outpatient Established Lo w MDM 20-29 Min Completed 01/21/2018 [id number] Diabetic Retinal Eye Exam [facility] 11/18/2017 [id number] Bone Mineral Density Test [facility] 11/18/2017 [id number] Mammogram Completed 04/08/2017 [id number] Diabetic Retinal Eye Exam [facility] 02/11/2017 [id number] Colonoscopy Completed Medical Devices Description No Information Available Encounters Type Date Location Provider Dx Diagnosis Office Visit 10/20/2020 3:00p [facility] MD J44.1 Chronic obstructive pulmonary disease [...] for other disorder Office Visit 10/03/2020 8:40a [facility] R09.02 Hypoxemia J44.1 Chronic obstructive pulmonar y disease w (acute) exacerbation C34.2 Malignant neoplasm of middle lobe, bronchus or lung Assessments Date Code Description Provider 02/07/2021 R51.9 Headache, unspecified Jase Figueroa, 02/07/2021 R10.13 Epigastric pain Contreras stratton, DO 02/07/2021 G89.29 Other chronic pain Contreras collado, DO 02/07/2021 I12.9 Hypertensive chronic kidney dise ase with stage 1 through sta Contreras Figueroa, DO 02/07/2021 N18.32 Chronic kidney disease, stage 3b Contreras Figueroa, DO 02/07/2021 G24.01 Tardive dyskinesia Contreras collado, [...] for othe r disorder Rico Figueroa MD 10/03/2020 R09.02 Hypoxemia MARIANO Villareal 10/03/2020 J44.1 Chronic obstructive pulmonary disease with (acute) exacerbation MARIANO Villareal 10/03/2020 C34.2 Malignant neoplasm of middle lob e, bronchus or lung MARIANO Villareal Plan of Treatment Future Appointment(s):* 02/23/2021 2:30 pm - Rico Figueroa MD at [facility] 10/20/2020 - Rico Figueroa MD* J44.1 Chronic obstructive pulmonary disease with (acute) exacerbation * C34.2 Malignant neoplasm of middle lobe, bronchus or lung * E11.21 Type 2 diabetes mellitus with diabetic nephropathy* Comments:* .Diabetic foot and eye exams up to date. TLC discussed. Glycemic index discussed. * E11.42 Type 2 diabetes mellitus with diabetic polyneuropathy * I12.9 Hypertensive chronic kidney disease with stage 1 through sta * N18.32 Chronic kidney disease, stage 3b * E78.00 Pure hypercholesterolemia, unspecified * Z13.89 Encounter for screening for other disorder * All * New Medication:* Bisoprolol Fumarate 5 mg - take 1 tablet by mouth every day Functional Status Description No Information Available Mental Status Description No Information Available Referrals Refer to Dr Reason for Referral Status Appt Date Yohannes Gonzalez MD CONSULT FOR DIABETIC EYE EXAM Created [place] [facility] [address] [facility], [address] [facility] [id number] [phone] [facility] CONSULT FOR PSORIASIS Scheduled 01/2021 [address] [facility] [address] [place] [address] [phone]
--- OUTSIDE RECORDS SUMMARY | 2021-04-23 17:19 | CCD | Continuity of Care Document ---
Author Author Lab Rashmi Lara Organization Unknown Address [address] [address] Phone Unavailable Care Team Providers Care Cell Changer Name Role Phone Dev Del Angel MD AUTM [phone] Kareem Shane DO AUTM [phone] Rico Puente JR, MD AUTM Unavailable Yohannes Gonzalez MD AUTM [phone] Problems Active Problems Provider Date Type 2 [...] To Affected Scalp 50units Lety Peterson A RECOVERY COLLECTOR 10/03/2020 Zofran 4mg Tablets 1 by mouth every four times a day nausea/prn 120tabs Estella Acevedo DO 1 Magnesium 500mg Capsules 1 by mouth every day Rico Puente MD 04/19/2020 Nystatin 397729Ksnv/ML Suspension swish and spit 5ml as needed twice a day for thrush 120ml Ro maria a Menodza JR, JUAN PABLO 02/10/2020 Levothyroxine Sodium 100mcg Tablet s Take [...] 30caps Cecil Mercado M.D. 12/30/2017 Calcium 600+D3 [id number] Tabl ets 1 every day by mouth bid ELOY [place] 018 Onetouch Ultra 2 w/Device Kit test twice a day and as directed e11.9 1units ELOY [place] 01/2018 Furosemide 20mg Tablets 1/ 2 daily 90tabs Sonal Keller FORMATION FRACTURING OPERATOR 04/17/2017 Metformin HCL 500mg Tablets Take Two Tablets By Mouth Twice A Day 360tabs Lety Peterson AN P 11/08/2016 Ventolin HFA 108(90Base) mcg/Act A erosol 2 puffs four times a day as needed 16gm R06.02 Sonal Keller, FN P 09/03/2016 Onetouch Ultra Test Strips Strips [...] Inj ection MARIANO Villareal 04/12/2019 Reclast 1MG [id number] Injection MARIANO Villareal 02/03/2008 IV Infusion Up To 1 Hour Injection MARIANO Villareal 02/03/2008 Administration Of Flu Vaccine Inj ection Rico Puente MD 03/08/2003 Immunizations CPT Code Status Date Vaccine Lot # [id number] Given 06/16/2020 Pneumovax 23 [id number] 97260 Given 04/12/2019 Influenza Vaccin e Quadrivalent Preser/Antibiotic Free Im Use 115629 97929 Given 09/09/2018 Pneumovax 23 [id number] U-PneuC Given 04/24/2016 Prevnar 13 61019 Given 03/17/2008 Influenza Virus Vaccine 90130 Given 03/10/2007 Influenza Virus Vaccine 58049 Given 03/08/2003 Influenza Virus Vaccine 53091 Refused 03/26/2017 Influenza Vaccin e Quadrivalent Preser/Antibiotic [...] Result H/L Range Note Laboratory test finding 02/13/[address] [address] [phone] Ferritin <pending> Laboratory test finding 02/07/2021 [facility] [address] [place] [address] [phone] C Reactive Protein Quantitativ < 0.30 mg/dL Normal 0.00-0.30 Complete Blood Count 02/07/2021 [place] [facility] Big Data Hadoop Developer: [place] [address] [phone] WBC 4.7 x10*3/UL 4.1 - 10.9 RBC [...] 2.0 - 7.8 Laboratory test finding 02/07/2021 [place] [facility] Big Data Hadoop Developer: [place] [address] [phone] Sed Rate 31 mm/hr High 0 - 15 Comprehensive Chem Profile 02/07/2021 [facility], Big Data Hadoop Developer: [place] [address] [phone] Glucose 156 mg/dL High 74 - 99 [...] 41 mL/min Low >60 3 A1c 10/20/2020 [facility] , Big Data Hadoop Developer: [place] [address] [phone] Hba1c 6.6 % High <5.7 4 Est Avg Glucose 143 mg/dL High 60 - 110 Lipid Profile 10/20/2020 [facility] , Big Data Hadoop Developer: [place] [address] [phone] Cholesterol 113 mg/dL Low 131 - 200 Triglycerides 34 mg/dL 30 - 150 HDL Cholesterol 78 mg/dL High 35 - 60 LDL (Calculated) 28 CALC Low 50 - 159 Laboratory test finding 10/20/2020 [place] [facility], Big Data Hadoop Developer: [place] [address] [phone] Thyroid Stimulating Hormone 0.54 uIU/mL 0.3 6 - 3.74 Microalbumin/Creatinine Urine 10/20/2020 [facility], Big Data Hadoop Developer: [place] [address] [phone] Microalbumin Urine 37.9 mg/L High 1.3 - 20.0 Urine Creatinine 34.6 mg/dL 30.0 - 125.0 Microalb/Creat Ratio 109.5 ug/mg High 0.0 - 30.0 Basic Metabolic Panel 10/03/2020 [facility] Big Data Hadoop Developer: Dr Rico Puente [place], [place] 4[address]160 [phone] Glucose 205 mg/dL High 74 - 99 [...] mL/min >60 6 Complete Blood Count 10/03/2020 [place] [facility] Big Data Hadoop Developer: Dr Rico Puente [place], [place] [address]31 [phone] WBC 5.3 x10*3/UL 4.1 - 10.9 RBC [...] LITTLE GFR LEFT ESRD GFR <15 ON MOLD YARD SUPERVISOR 4 Lab Result Notes: Pre-Diabetes 5.7 - [...] LITTLE GFR LEFT ESRD GFR <15 ON MOLD YARD SUPERVISOR Procedures Date Code Description Status 01/29/2021 [id number] Diabetic Retinal Eye Exam [facility] 10/20/2020 14841 Office/Outpatient Established Mo d MDM 30-39 Min Completed 10/03/2020 26388 Office/Outpatient Established Lo w MDM 20-29 Min Completed 01/21/2018 [id number] Diabetic Retinal Eye Exam [facility] 11/18/2017 [id number] Bone Mineral Density Test Comple [facility] 11/18/2017 [id number] Mammogram Completed 04/08/2017 [id number] Diabetic Retinal Eye Exam [facility]ple [facility] 02/11/2017 [id number] Colonoscopy Completed Medical Devices Description No Information Available Encounters Type Date Location Provider Dx Diagnosis Office Visit 10/20/2020 3:00p [facility] MD J44.1 Chronic obstructive pulmonary [...] for other disorder Office Visit 10/03/2020 8:40a [facility] MARIANO Villareal R09.02 Hypoxemia J44.1 Chronic obstructive pulmonar y disease w (acute) exacerbation C34.2 Malignant neoplasm of middle lobe, bronchus or lung Assessments Date Code Description Provider 02/13/2021 D64.9 Anemia, unspecified Lab Schedule 02/07/2021 [...] 2:30 pm - Rico Puente MD at [facility] 10/20/2020 - Rico Puente MD* J44.1 Chronic obstructive pulmonary disease with [...] MD CONSULT FOR DIABETIC EYE EXAM Created [place] [facility] [address] [facility] [address] [facility] [address] [phone] [facility] CONSULT FOR PSORIASIS Scheduled 01/2021 [address] [facility] [address] [place] [address] [phone]
--- OUTSIDE RECORDS SUMMARY | 2021-04-23 17:19 | CCD | Continuity of Care Document ---
Author Author Rashmi FIGUEROA DO Organization Unknown Address [address] [place] [address] [address] [place] [address] Phone [phone] Care Team Providers Care Crime Scene Analyst Name Role Phone Dev Del Angel MD AUTM [phone] Kareem Shane DO AUTM [phone] Rico Figueroa JR, MD AUTM Unavailable Yohannes Gonzaelz MD AUTM [phone] Problems Active Problems Provider Date Type 2 [...] To Affected Scalp 50units Lety Peterson, A CLINIC ASSISTANT 10/03/2020 Zofran 4mg Tablets 1 by mouth every four times a day nausea/prn 120tabs Estella Acevedo DO 1 Magnesium 500mg Capsules 1 by mouth every day Rico Figueroa MD 04/19/2020 Nystatin [id number]/ML Suspension swish and spit 5ml as needed [...] 30caps Cecil Mercado M.D. 12/30/2017 Calcium 600+D3 [id number]-Klsg Tabl ets 1 every day by mouth bid ELOY [place] 018 Onetouch Ultra 2 w/Device Kit test twice a day and as directed e11.9 1units ELOY [place] 01/2018 Furosemide 20mg Tablets 1/ 2 daily 90tabs Sonal Keller, CHECKROOM CHIEF 04/17/2017 Metformin HCL 500mg Tablets Take Two [...] Inj ection MARIANO Villareal 04/12/2019 Reclast 1MG [id number] Injection MARIANO Villareal 02/03/2008 IV Infusion Up To 1 Hour Injection MARIANO Villareal 02/03/2008 Administration Of Flu Vaccine Inj ection Rico Figueroa MD 03/08/2003 Immunizations CPT Code Status Date Vaccine Lot # [id number] Given 06/16/2020 Pneumovax 23 [id number] 10867 Given 04/12/2019 Influenza Vaccin e Quadrivalent Preser/Antibiotic Free Im Use [id number] 28503 Given 09/09/2018 Pneumovax 23 [id number] U-PneuC Given 04/24/2016 Prevnar 13 42879 Given 03/17/2008 Influenza Virus Vaccine 27756 Given 03/10/2007 Influenza Virus Vaccine 94193 Given 03/08/2003 Influenza Virus Vaccine [id number] Refused 03/26/2017 Influenza Vaccin e Quadrivalent Preser/Antibiotic [...] H/L Range Note Laboratory test finding 02/07/2021 [facility] [address] [place], [place] [address] [phone] C Reactive Protein Quantitativ < 0.30 mg/dL Normal 0.00-0.30 Complete Blood Count 02/07/2021 [facility] [employer] diana schafer Automatic Spinning Lathe Operator: [place] [address] [phone] WBC 4.7 x10*3/UL 4.1 - 10.9 RBC [...] 2.0 - 7.8 Laboratory test finding 02/07/2021 [facility] diana cook Automatic Spinning Lathe Operator: [place] [address] [phone] Sed Rate 31 mm/hr High 0 - 15 Comprehensive Chem Profile 02/07/2021 [facility] [place] Automatic Spinning Lathe Operator: Dr G[place]z [place] [id number] [phone] Glucose 156 mg/dL High 74 - 99 [...] 41 mL/min Low >60 3 A1c 10/20/2020 [facility] , Automatic Spinning Lathe Operator: Dr Rico Figueroa [place] [id number] [phone] Hba1c 6.6 % High <5.7 4 Est Avg Glucose 143 mg/dL High 60 - 110 Lipid Profile 10/20/2020 [facility] , Automatic Spinning Lathe Operator: [place] [address] [phone] Cholesterol 113 mg/dL Low 131 - 200 Triglycerides 34 mg/dL 30 - 150 HDL Cholesterol 78 mg/dL High 35 - 60 LDL (Calculated) 28 CALC Low 50 - 159 Laboratory test finding 10/20/2020 [facility], Automatic Spinning Lathe Operator: [place] [address] [phone] Thyroid Stimulating Hormone 0.54 uIU/mL 0.3 6 - 3.74 Microalbumin/Creatinine Urine 10/20/2020 [facility], Automatic Spinning Lathe Operator: Dr Rico Figueroa [place] [id number] [phone] Microalbumin Urine 37.9 mg/L High 1.3 - 20.0 Urine Creatinine 34.6 mg/dL 30.0 - 125.0 Microalb/Creat Ratio 109.5 ug/mg High 0.0 - 30.0 Basic Metabolic Panel 10/03/2020 [facility] Automatic Spinning Lathe Operator: [place] [address] [phone] Glucose 205 mg/dL High 74 - 99 [...] mL/min >60 6 Complete Blood Count 10/03/2020 [facility], pc Automatic Spinning Lathe Operator: [place] [address] [phone] WBC 5.3 x10*3/UL 4.1 - 10.9 RBC [...] LITTLE GFR LEFT ESRD GFR <15 ON DOOR PULLER 4 Lab Result Notes: Pre-Diabetes 5.7 - [...] LITTLE GFR LEFT ESRD GFR <15 ON DOOR PULLER Procedures Date Code Description Status 01/29/2021 [id number] Diabetic Retinal Eye Exam Comple alfonso 10/20/2020 82416 Office/Outpatient Established Mo d MDM 30-39 Min Completed 10/03/2020 64279 Office/Outpatient Established Lo w MDM 20-29 Min Completed 01/21/2018 [id number] Diabetic Retinal Eye Exam Comple [facility] 11/18/2017 873767715 Bone Mineral Density Test Comple [facility] 11/18/2017 [id number] Mammogram Completed 04/08/2017 [id number] Diabetic Retinal Eye Exam Comple [facility] 02/11/2017 [id number] Colonoscopy Completed Medical Devices Description No Information Available Encounters Type Date Location Provider Dx Diagnosis Office Visit 10/20/2020 3[facility]p [facility] J44.1 Chronic obstructive [...] dise ase with stage 1 through sta Rcio Figueroa MD 10/20/2020 N18.32 Chronic kidney disease, [...] 2:30 pm - Rico Figueroa MD at [facility] 10/20/2020 - Rico Figueroa MD* [...] MD CONSULT FOR DIABETIC EYE EXAM Created [place] [facility] [address] [facility], [address] [facility] [id number] [phone] [facility] CONSULT FOR PSORIASIS Scheduled 01/2021 [address] [facility] [address] [place] [address] [phone]
--- OUTSIDE RECORDS SUMMARY | 2021-04-23 17:19 | CCD | Continuity of Care Document ---
Author Author Lab Rashmi Lara Organization Unknown Address [address] [address] Phone Unavailable Care Team Providers Care Field Marketing Manager Name Role Phone Dev Del Angel MD AUTM [phone] Kareem Shane DO AUTM [phone] Rico Puente JR, MD AUTM Unavailable Yohannes Gonzalez MD AUTM [phone] Problems Active Problems Provider Date Type 2 [...] To Affected Scalp 50units Lety Peterson A BIAS CUTTER 10/03/2020 Zofran 4mg Tablets 1 by mouth every four times a day nausea/prn 120tabs Estella Acevedo DO 1 Magnesium 500mg Capsules 1 by mouth every day Rico Puente MD 04/19/2020 Nystatin 598372Qbig/ML Suspension swish and spit 5ml as needed twice a day for thrush 120ml Ro maria a Mendoza JR, JUAN PABLO 02/10/2020 Levothyroxine Sodium 100mcg [...] 30caps Cecil Mercado M.D. 12/30/2017 Calcium 600+D3 [id number]-Vufw Tabl ets 1 every day by mouth bid ELOY [place] 018 Onetouch Ultra 2 w/Device Kit test twice a day and as directed e11.9 1units ELOY [place] 01/2018 Furosemide 20mg Tablets 1/ 2 daily 90tabs Sonal Keller EMBALMER ASSISTANT 04/17/2017 Metformin HCL 500mg Tablets Take Two [...] Inj ection MARIANO Villareal 04/12/2019 Reclast 1MG [id number] Injection MARIANO Villareal 02/03/2008 IV Infusion Up To 1 Hour Injection MARIANO Villareal 02/03/2008 Administration Of Flu Vaccine Inj ection Rico Puente MD 03/08/2003 Immunizations CPT Code Status Date Vaccine Lot # [id number] Given 06/16/2020 Pneumovax 23 [id number] 24128 Given 04/12/2019 Influenza Vaccin e Quadrivalent Preser/Antibiotic Free Im Use [id number] 97673 Given 09/09/2018 Pneumovax 23 [id number] U-PneuC Given 04/24/2016 Prevnar 13 49164 Given 03/17/2008 Influenza Virus Vaccine 98290 Given 03/10/2007 Influenza Virus Vaccine 07574 Given 03/08/2003 Influenza Virus Vaccine 93612 Refused 03/26/2017 Influenza Vaccin e Quadrivalent Preser/Antibiotic [...] H/L Range Note Laboratory test finding 02/13/[address] [address] [phone] Ferritin <pending> Laboratory test finding 02/07/2021 [facility] [address] [place] [address] [phone] C Reactive Protein Quantitativ < 0.30 mg/dL Normal 0.00-0.30 Complete Blood Count 02/07/2021 [facility] pc Pleater Hand: [place] [address] [phone] WBC 4.7 x10*3/UL 4.1 - 10.9 RBC [...] 2.0 - 7.8 Laboratory test finding 02/07/2021 [facility] joyce pc Pleater Hand: [place] [address] [phone] Sed Rate 31 mm/hr High 0 - 15 Comprehensive Chem Profile 02/07/2021 [facility], Pleater Hand: [place] [address] [phone] Glucose 156 mg/dL High 74 - 99 [...] 41 mL/min Low >60 3 A1c 10/20/2020 [facility] , Pleater Hand: [place] [address] [phone] Hba1c 6.6 % High <5.7 4 Est Avg Glucose 143 mg/dL High 60 - 110 Lipid Profile 10/20/2020 [facility] , Pleater Hand: [place] [address] [phone] Cholesterol 113 mg/dL Low 131 - 200 Triglycerides 34 mg/dL 30 - 150 HDL Cholesterol 78 mg/dL High 35 - 60 LDL (Calculated) 28 CALC Low 50 - 159 Laboratory test finding 10/20/2020 [facility], Pleater Hand: [place] [address] [phone] Thyroid Stimulating Hormone 0.54 uIU/mL 0.3 6 - 3.74 Microalbumin/Creatinine Urine 10/20/2020 [facility], Pleater Hand: [place] [address] [phone] Microalbumin Urine 37.9 mg/L High 1.3 - 20.0 Urine Creatinine 34.6 mg/dL 30.0 - 125.0 Microalb/Creat Ratio 109.5 ug/mg High 0.0 - 30.0 Basic Metabolic Panel 10/03/2020 [facility] Pleater Hand: Dr Rico Puente [place], [place] [id number] [phone] Glucose 205 mg/dL High 74 - 99 [...] mL/min >60 6 Complete Blood Count 10/03/2020 [facility], pc Pleater Hand: Dr Rico Puente [place], [place] [id number] [phone] WBC 5.3 x10*3/UL 4.1 - 10.9 RBC [...] LITTLE GFR LEFT ESRD GFR <15 ON CHRISTMAS TREE FARMER 4 Lab Result Notes: Pre-Diabetes 5.7 - [...] LITTLE GFR LEFT ESRD GFR <15 ON CHRISTMAS TREE FARMER Procedures Date Code Description Status 01/29/2021 [id number] Diabetic Retinal Eye Exam [facility] 10/20/2020 29048 Office/Outpatient Established Mo d MDM 30-39 Min Completed 10/03/2020 91443 Office/Outpatient Established Lo w MDM 20-29 Min Completed 01/21/2018 [id number] Diabetic Retinal Eye Exam [facility] 11/18/2017 [id number] Bone Mineral Density Test Comple [facility] 11/18/2017 [id number] Mammogram Completed 04/08/2017 [id number] Diabetic Retinal Eye Exam [facility]ple [facility] 02/11/2017 [id number] Colonoscopy Completed Medical Devices Description No Information Available Encounters Type Date Location Provider Dx Diagnosis Office Visit 10/20[facility]2020 [facility] J44.1 Chronic obstructive [...] for other disorder Office Visit 10/03/2020 8:40a [facility] MARIANO Villareal R09.02 Hypoxemia J44.1 [...] 2:30 pm - Rico Puente MD at [facility] 10/20/2020 - Rico Puente MD* [...] MD CONSULT FOR DIABETIC EYE EXAM Created [place] [facility] [address] [facility] [address] [facility] [address] [phone] [facility] CONSULT FOR PSORIASIS Scheduled 01/2021 [address] [facility] [address] [place] [address] [phone]
--- OUTSIDE RECORDS SUMMARY | 2021-04-23 17:20 | CCD | Continuity of Care Document ---
Author Author Rashmi FIGUEROA DO Organization Unknown Address [address] [place] [address] [address] [place] [address] Phone [phone] Care Team Providers Care User Experience Analyst Name Role Phone Dev Del Angel MD AUTM [phone] Kareem Shane DO AUTM [phone] Rico Figueroa JR, MD AUTM Unavailable Yohannes Gonzalez MD AUTM [phone] Problems Active Problems Provider Date Type 2 [...] To Affected Scalp 50units Lety Peterson, A DIRECTOR OF MARKETING 10/03/2020 Zofran 4mg Tablets 1 by mouth every four times a day nausea/prn 120tabs Estella Acevedo DO 1 Magnesium 500mg Capsules 1 by mouth every day Rico Figueroa MD 04/19/2020 Nystatin 690343Syfx/ML Suspension swish and spit 5ml as needed [...] 30caps Cecil Mercado M.D. 12/30/2017 Calcium 600+D3 [id number]-Uuqr Tabl ets 1 every day by mouth bid ELOY [place] 018 Onetouch Ultra 2 w/Device Kit test twice a day and as directed e11.9 1units ELOY [place] 01/2018 Furosemide 20mg Tablets 1/ 2 daily 90tabs Sonal Keller, OUTSIDE SOLAR SALES CONSULTANT 04/17/2017 Metformin HCL 500mg Tablets Take Two [...] 1 by mouth twice a day Unknown Sulfamethoxazole-Trimethoprim 400-80mg Tablets William Richardson MD Medications Administered in Office Medication SIG Qnty Indications Ordering Provider Date Covid-19 vaccine, Unspecified Inj ection Unknown 09/01/2020 Covid-19 vaccine, Unspecified Inj ection Unknown 08/04/2020 Administration Of Flu Vaccine Inj ection MARIANO Villareal 04/12/2019 Reclast 1MG [id number] Injection MARIANO Villareal 02/03/2008 IV Infusion Up To 1 Hour Injection MARIANO Villareal 02/03/2008 Administration Of Flu Vaccine Inj ection Rico Figueroa MD 03/08/2003 Immunizations CPT Code Status Date Vaccine Lot # 22040 Given 06/16/2020 Pneumovax 23 [id number] 88359 Given 04/12/2019 Influenza Vaccin e Quadrivalent Preser/Antibiotic Free Im Use [id number] 22746 Given 09/09/2018 Pneumovax 23 [id number] U-PneuC Given 04/24/2016 Prevnar 13 79084 Given 03/17/2008 Influenza Virus Vaccine 81014 Given 03/10/2007 Influenza Virus Vaccine 96549 Given 03/08/2003 Influenza Virus Vaccine 38748 Refused 03/26/2017 Influenza Vaccin e Quadrivalent Preser/Antibiotic [...] H/L Range Note Laboratory test finding 02/07/2021 [facility] [address] [place] [id number] [phone] High Sensitivity C-Reactive Protein <pending> Laboratory test finding 02/07/2021 [place] [facility] Ca Elevator Mechanic: Dr Rico Figuero[place] [id number] [phone] Sed Rate <pending> A1c 10/20/2020 [facility] , Elevator Mechanic: Dr Rico Figueroa [place] [id number] [phone] Hba1c 6.6 % High <5.7 1 Est Avg Glucose 143 mg/dL High 60 - 110 Lipid Profile 10/20/2020 [place] , Elevator Mechanic: Dr Rico Fig[place] [address] [phone] Cholesterol 113 mg/dL Low 131 - 200 Triglycerides 34 mg/dL 30 - 150 HDL Cholesterol 78 mg/dL High 35 - 60 LDL (Calculated) 28 CALC Low 50 - 159 Laboratory test finding 10/20/2020 [place] diana Ca Elevator Mechanic: Dr Rico Figueroa [place] [id number] [phone] Thyroid Stimulating Hormone 0.54 uIU/mL 0.3 6 - 3.74 Microalbumin/Creatinine Urine 10/20/2020 [place], Elevator Mechanic: [place] [address] [phone] Microalbumin Urine 37.9 mg/L High 1.3 - 20.0 Urine Creatinine 34.6 mg/dL 30.0 - 125.0 Microalb/Creat Ratio 109.5 ug/mg High 0.0 - 30.0 Basic Metabolic Panel 10/03/2020 [facility] Elevator Mechanic: [place] [address] [phone] Glucose 205 mg/dL High 74 - 99 2 BUN 22 mg/dL High 7 - 18 Creatinine 1.0 mg/dL 0.6 - 1.3 Sodium 142 mEq/L 136 - 145 Potassium 4.4 mEq/L 3.5 - 5.1 Chloride 102 mEq/L 98 - 107 Carbon Dioxide 31 mEq/L 21 - 32 Calcium 9.3 mg/dL 8.5 - 10.1 GFR 54 mL/min Low >60 GFR >= 60 mL/min >60 3 Complete Blood Count 10/03/2020 [facility], pc Elevator Mechanic: [place] [address] [phone] WBC 5.3 x10*3/UL 4.1 - 10.9 RBC [...] LITTLE GFR LEFT ESRD GFR <15 ON SWATCH PASTER Procedures Date Code Description Status 01/29/2021 [id number] Diabetic Retinal Eye Exam Comple alfonso 10/20/2020 83929 Office/Outpatient Established Mo d MDM 30-39 Min Completed 10/03/2020 96444 Office/Outpatient Established Lo w MDM 20-29 Min Completed 01/21/2018 [id number] Diabetic Retinal Eye Exam Comple alfonso 11/18/2017 894408900 Bone Mineral Density Test Comple [facility] 11/18/2017 [id number] Mammogram Completed 04/08/2017 [id number] Diabetic Retinal Eye Exam Comple [facility] 02/11/2017 [id number] Colonoscopy Completed Medical Devices Description No Information Available Encounters Type Date Location Provider Dx Diagnosis Office Visit 10/20/2020 3:00p [facility] Rico Figueroa MD J44.1 Chronic obstructive pulmonary [...] for other disorder Office Visit 10/03/2020 8:40a [facility] Peterson, ANP R09.02 Hypoxemia J44.1 Chronic obstructive pulmonar y disease w (acute) exacerbation C34.2 Malignant neoplasm of middle lobe, bronchus or lung Assessments Date Code Description Provider 10/20/2020 J44.1 Chronic obstructive pulmonary disease with [...] 2:30 pm - Rico Figueroa MD at [facility] 02/07/2021 - Contreras Figueroa DO* All * New Medication:* Rosuvastatin Calcium 40 mg - 1/2 by mouth every day Functional Status Description No Information Available Mental Status Description No Information Available Referrals Refer to Reason for Referral Status Appt Date Yohannes Gonzalez MD CONSULT FOR DIABETIC EYE EXAM Created [place] [facility] [address] [facility], [address] [facility] [address] [phone] [facility] CONSULT FOR PSORIASIS Scheduled 01/2021 [address] [facility] [address] [place] [address] [phone]
--- OUTSIDE RECORDS SUMMARY | 2021-04-23 17:20 | CCD | Continuity of Care Document ---
Author Author Rashmi Puente MD Organization Unknown Address [address] [facility] [address] [place] [address] Phone [phone] Care Team Providers Care Air Liaison And Special Staff Name Role Phone Dev Del Angel MD AUTM [phone] Kareem Shane DO AUTM [phone] Rico Puente JR, MD AUTM Unavailable Yohannes Gonzalez MD AUTM [phone] Problems Active Problems Provider Date Type 2 diabetes mellitus ELOY [place] Onset: 08/01/19 17 Carotid artery occlusion ELOY [place] Onset: 02/15/20 18 Chronic kidney disease stage 3 ELOY [place] Onset: Social History Type Date Description Comments Sex Unknown ETOH Use Denies alcohol use Tobacco Use Start: Unknown End: Unknown Patient is a former smoker 25-30 pack year cigarette smoking history. Restarted 5-6 a day "when stressed" Allergies, Adverse Reactions, Alerts Active Allergies Criticality [...] SIG Qnty Indications Ordering Provide r Date Doxycycline Monohydrate 100mg Caps ules 1 twice [...] To Affected Scalp 50units Lety Peterson, A DIGITAL MARKETING EXECUTIVE 10/03/2020 Zofran 4mg Tablets 1 by mouth every four times a day nausea/prn 120tabs Estella Acevedo DO 1 Magnesium 500mg Capsules 1 by mouth every day Rico Puente MD 04/19/2020 Nystatin 178252Maxd/ML Suspension swish and spit 5ml as needed twice a day for thrush 120ml Ro JUAN PABLO Hoskins JR 02/10/2020 Levothyroxine Sodium 100mcg Tablet s Take One Tablet By Mouth Every Day 30tabs Rico Puente MD 01/06/[address] Take 2 Capsules By Mouth Every Day 180caps Ty Munguia D 11/18/2018 Aspir-Low 81mg Tablets DR 1 by mouth every day 90tabs Rico Puente MD 09/15/2018 Rosuvastatin Calcium 40mg Tablets take one tablet by mouth every day 90tabs Rico Puente MD 05/20/2018 Montelukast Sodium 10mg Tablets Take 1 Tablet By Mouth Daily Before Bedtime 30tabs Rico Puente MD 03/12/2018 Venlafaxine HCL ER 150mg Caps ER 2 4HR 1 by mouth every day 30caps Cecil Mercado M.D. 12/30/2017 Calcium 600+D3 [id number]-Uvqe Tabl ets 1 every day by mouth bid ELOY [place] 018 Onetouch Ultra 2 w/Device Kit test twice a day and as directed e11.9 1units ELOY [place] 01/2018 Furosemide 20mg Tablets 1/ 2 daily 90tabs Sonal Barragan Rosa, CONCRETE STONE FABRICATING SUPERVISOR 04/17/2017 Metformin HCL 500mg Tablets Take Two [...] Inj ection MARIANO Villareal 04/12/2019 Reclast 1MG [id number] Injection MARIANO Villareal 02/03/2008 IV Infusion Up To 1 Hour Injection MARIANO Villareal 02/03/2008 Administration Of Flu Vaccine Inj ection Rico Puente MD 03/08/2003 Immunizations CPT Code Status Date Vaccine Lot # [id number] Given 06/16/2020 Pneumovax 23 [id number] 68749 Given 04/12/2019 Influenza Vaccin e Quadrivalent Preser/Antibiotic Free Im Use 460652 43549 Given 09/09/2018 Pneumovax 23 [id number] U-PneuC Given 04/24/2016 Prevnar 13 36412 Given 03/17/2008 Influenza Virus Vaccine 33857 Given 03/10/2007 Influenza Virus Vaccine 88489 Given 03/08/2003 Influenza Virus Vaccine 57977 Refused 03/26/2017 Influenza Vaccin e Quadrivalent Preser/Antibiotic Free Im Use Vital Signs Date Vital Result Comment 10/20/2020 2:40pm BP Systolic 136 mmHg BP Diastolic 62 mmHg Heart Rate 72 /min Height 62.0 inches 5'2" Weight 108.38 lb O2 % BldC Oximetry 90 % RM Air BMI (Body Mass Index) 19.8 kg/m2 10/03/2020 8:45am Heart Rate 78 /min Height 62.0 inches 5'2" Weight 112.00 lb O2 % BldC Oximetry 89 % 95% on 2L at rest O2 Saturation Level with Exercise 85 % 92% on 2L with exercise BMI (Body Mass Index) 20.5 kg/m2 Results Test Acquired Date Facility Test Result H/L Range Note A1c 10/20/2020 [facility] Administrative Services Assistant: Dr Rico [place] [address] [phone] Hba1c 6.6 % High <5.7 1 Est Avg Glucose 143 mg/dL High 60 - 110 Lipid Profile 10/20/2020 [facility] , Administrative Services Assistant: Dr Rico Puente [facility], [facility] [phone] Cholesterol 113 mg/dL Low 131 - 200 Triglycerides 34 mg/dL 30 - 150 HDL Cholesterol 78 mg/dL High 35 - 60 LDL (Calculated) 28 CALC Low 50 - 159 Laboratory test finding 10/20/2020 [facility], pc Administrative Services Assistant: [place] [address] [phone] Thyroid Stimulating Hormone 0.54 uIU/mL 0.3 6 - 3.74 Microalbumin/Creatinine Urine 10/20/2020 [facility], Administrative Services Assistant: Dr Rico Ferro [place] [address] [phone] Microalbumin Urine 37.9 mg/L High 1.3 - 20.0 Urine Creatinine 34.6 mg/dL 30.0 - 125.0 Microalb/Creat Ratio 109.5 ug/mg High 0.0 - 30.0 Basic Metabolic Panel 10/03/2020 [facility] Administrative Services Assistant: [place] [address] [phone] Glucose 205 mg/dL High 74 - 99 [...] mL/min >60 3 Complete Blood Count 10/03/2020 [facility] Administrative Services Assistant: Dr Rico Puente [place], [place] [address] [phone] WBC 5.3 x10*3/UL 4.1 - 10.9 RBC [...] LITTLE GFR LEFT ESRD GFR <15 ON COMPOSITE ENGINEER Procedures Date Code Description Status 01/29/2021 [id number] Diabetic Retinal Eye Exam Comple alfonso 10/20/2020 15759 Office/Outpatient Established Mo d MDM 30-39 Min Completed 10/03/2020 14930 Office/Outpatient Established Lo w MDM 20-29 Min Completed 01/21/2018 [id number] Diabetic Retinal Eye Exam Comple [facility] 11/18/2017 [id number] Bone Mineral Density Test Comple [facility] 11/18/2017 [id number] Mammogram Completed 04/08/2017 [id number] Diabetic Retinal Eye Exam Comple [facility] 02/11/2017 [id number] Colonoscopy Completed Medical Devices Description No Information Available Encounters Type Date Location Provider Dx Diagnosis Office Visit 10/20/2020 3:00p [facility] Rico Puente MD J44.1 Chronic obstructive pulmonary disease [...] for other disorder Office Visit 10/03/2020 8:40a [facility] Lety Peterson, ANP R09.02 Hypoxemia [...] MARIANO Villareal Plan of Treatment Future Appointment(s):* 01/31/2021 3:00 pm - Contreras Puente DO at [facility] * 02/23/2021 2:30 pm - Rico Puente MD at [facility] 10/20/2020 - Rico Puente MD* [...] MD CONSULT FOR DIABETIC EYE EXAM Created [place] [facility] [address] [facility], [address] [facility] [address] [phone] [facility] Dermatology CONSULT FOR PSORIASIS Scheduled 01/2021 [address] [facility] [address] [place] [address] [phone]
--- OUTSIDE RECORDS SUMMARY | 2021-04-23 17:21 | CCD ---
Author Author [facility] Organization [facility] Address Unknown Phone Unavailable Care Team Providers Care Sprayer Automatic Spray Machine Name Role Phone Christina Richardson MD Unavailable Unavailable AbrChristina naqvi MD Unavailable Unavailable AbrChristina naqvi MD Unavailable Unavailable Abrodnya B William CORLEY Unavailable Unavailable AbrChristina naqvi MD Unavailable Unavailable AbrChristina naqvi MD Unavailable Unavailable AbrChristina naqvi MD Unavailable Unavailable AbrChristina naqvi MD Unavailable Unavailable AbrChristina naqvi MD Unavailable Unavailable AbrissChristina MD Unavailable Unavailable AbrissChristina MD Unavailable Unavailable AbrissChristina MD Unavailable Unavailable AbrissChristina MD Unavailable Unavailable Christina Richardson MD Unavailable Unavailable AbrChristina naqvi MD Unavailable Unavailable Christina Richardson MD Unavailable Unavailable Christina Richardson MD Unavailable Unavailable Christina Richardson MD Unavailable Unavailable AbrissChristina MD Unavailable Unavailable LETTIERE, A ELMIRA PA Unavailable Unavailable LETTIERE, A ELMIRA PA Unavailable Unavailable LETTIERE, A ELMIRA PA Unavailable Unavailable LETTIERE, A ELMIRA PA Unavailable Unavailable LETTIERE, A ELMIRA PA Unavailable Unavailable LETTIERE, A ELMIRA PA Unavailable Unavailable LETTIERE, A ELMIRA PA Unavailable Unavailable LETTIERE, A ELMIRA PA Unavailable Unavailable LETTIERE, A ELMIRA PA Unavailable Unavailable LETTIERE, A ELMIRA PA Unavailable Unavailable LETTIERE, A ELMIRA PA Unavailable Unavailable LETTIERE, A ELMIRA PA Unavailable Unavailable LETTIERE, A ELMIRA PA Unavailable Unavailable LETTIERE, A ELMIRA PA Unavailable Unavailable LETTIERE, A ELMIRA PA Unavailable Unavailable LETTIERE, A ELMIRA PA Unavailable Unavailable LETTIERE, A ELMIRA PA Unavailable Unavailable LETTIERE, A ELMIRA PA Unavailable Unavailable LETTIERE, A ELMIRA PA Unavailable Unavailable LETTIERE, A ELMIRA PA Unavailable Unavailable LETTIERE, A ELMIRA PA Unavailable Unavailable LETTIERE, A ELMIRA PA Unavailable Unavailable LETTIERE, A ELMIRA PA Unavailable Unavailable LETTIERE, A ELMIRA PA Unavailable Unavailable LETTIERE, A ELMIRA PA Unavailable Unavailable LETTIERE, A ELMIRA PA Unavailable Unavailable LETTIERE, A ELMIRA PA Unavailable Unavailable LETTIERE, A ELMIRA PA Unavailable Unavailable LETTIERE, A ELMIRA PA Unavailable Unavailable LETTIERE, A ELMIRA PA Unavailable Unavailable LETTIERE, A ELMIRA PA Unavailable Unavailable MCELHERAN, ELMIRA PA Unavailable Unavailable MCELHERAN, ELMIRA PA Unavailable Unavailable MCELHERAN, ELMIRA PA Unavailable Unavailable MCELHERAN, ELMIRA PA Unavailable Unavailable MCELHERAN, ELMIRA PA Unavailable Unavailable MCELHERAN, ELMIRA PA Unavailable Unavailable MCELHERAN, ELMIRA PA Unavailable Unavailable MCELHERAN, ELMIRA PA Unavailable Unavailable MCELHERAN, ELMIRA PA Unavailable Unavailable MCELHERAN, ELMIRA PA Unavailable Unavailable MCELHERAN, ELMIRA PA Unavailable Unavailable MCELHERAN, ELMIRA PA Unavailable Unavailable MCELHERAN, ELMIRA PA Unavailable Unavailable MCELHERAN, ELMIRA PA Unavailable Unavailable MCELHERAN, ELMIRA PA Unavailable Unavailable MCELHERAN, ELMIRA PA Unavailable Unavailable MCELHERAN, ELMIRA PA Unavailable Unavailable MCELHERAN, ELMIRA PA Unavailable Unavailable MCELHERAN, ELMIRA PA Unavailable Unavailable MCELHERAN, ELMIRA PA Unavailable Unavailable MCELHERAN, ELMIRA PA Unavailable Unavailable MCELHERAN, ELMIRA PA Unavailable Unavailable MCELHERAN, ELMIRA PA Unavailable Unavailable MCELHERAN, ELMIRA PA Unavailable Unavailable MCELHERAN, ELMIRA PA Unavailable Unavailable MCELHERAN, ELMIRA PA Unavailable Unavailable MCELHERAN, ELMIRA PA Unavailable Unavailable MCELHERAN, ELMIRA PA Unavailable Unavailable MCELHERAN, ELMIRA PA Unavailable Unavailable Clarke Puente MD Unavailable Unavailable Clarke Puente MD Unavailable Unavailable Clarke Puente MD Unavailable Unavailable AmherstClarke MD Unavailable Unavailable AmherstClarke MD Unavailable Unavailable CindiClarke MD Unavailable Unavailable AmherstClarke MD Unavailable Unavailable AmherstClarke MD Unavailable Unavailable CindiClarke MD Unavailable Unavailable AmherstClarke MD Unavailable Unavailable CindiClarke MD Unavailable Unavailable CindiClarke MD Unavailable Unavailable AmherstClarke MD Unavailable Unavailable AmherstClarke MD Unavailable Unavailable AmherstClarke MD Unavailable Unavailable CindiClarke MD Unavailable Unavailable AmherstClarke MD Unavailable Unavailable AmherstClarke MD Unavailable Unavailable CindiClarke MD Unavailable Unavailable AmherstClarke MD Unavailable Unavailable CindiClarke MD Unavailable Unavailable CindiClarke MD Unavailable Unavailable AmherstClarke MD Unavailable Unavailable CindiClarke MD Unavailable Unavailable CindiClarke MD Unavailable Unavailable CindiClarke MD Unavailable Unavailable CindiClarke MD Unavailable Unavailable AmherstClarke MD Unavailable Unavailable CindiClarke MD Unavailable Unavailable AmherstClarke MD Unavailable Unavailable AmherstClarke MD Unavailable Unavailable AmherstClarke MD Unavailable Unavailable CindiClarke MD Unavailable Unavailable CindiClarke MD Unavailable Unavailable AmherstClarke MD Unavailable Unavailable AmherstClarke MD Unavailable Unavailable AmherstClarke MD Unavailable Unavailable AmherstClarke MD Unavailable Unavailable AmherstClarke MD Unavailable Unavailable AmherstClarke MD Unavailable Unavailable AmherstClarke MD Unavailable Unavailable AmherstClarke MD Unavailable Unavailable AmherstClarke MD Unavailable Unavailable CindiClarke MD Unavailable Unavailable AmherstClarke MD Unavailable Unavailable CindiClarke MD Unavailable Unavailable AmherstClarke MD Unavailable Unavailable CindiClarke MD Unavailable Unavailable AmherstClarke MD Unavailable Unavailable CindiClarke MD Unavailable Unavailable CindiClarke MD Unavailable Unavailable CindiClarke MD Unavailable Unavailable CindiClarek MD Unavailable Unavailable AmherstClarke MD Unavailable Unavailable AmherstClarke MD Unavailable Unavailable CindiClarke MD Unavailable Unavailable CindiClarke MD Unavailable Unavailable CindiClarke MD Unavailable Unavailable AmherstClarke Gómez MD Unavailable Unavailable Clarke Puente MD Unavailable Unavailable AmherstClarke duran MD Unavailable Unavailable AmherstClarke duran MD Unavailable Unavailable IcndiClarke duran MD Unavailable Unavailable CindiClarke duran MD Unavailable Unavailable AmherstClarke duran MD Unavailable Unavailable AmherstClarke duran MD Unavailable Unavailable CindiClarke duran MD Unavailable Unavailable CindiClarke duran MD Unavailable Unavailable AmherstClarke duran MD Unavailable Unavailable AmherstClarke duran MD Unavailable Unavailable CindiClarke duran MD Unavailable Unavailable AmherstClarke duran MD Unavailable Unavailable CindiClarke duran MD Unavailable Unavailable CindiClarke duran MD Unavailable Unavailable CindiClarke duran MD Unavailable Unavailable CindiClarke duran MD Unavailable Unavailable CindiClarke duran MD Unavailable Unavailable AmherstClarke duran MD Unavailable Unavailable CindiClarke duran MD Unavailable Unavailable CindiClarke duran MD Unavailable Unavailable AmherstClarke duran MD Unavailable Unavailable CindiClarke duran MD Unavailable Unavailable Clarke Puente MD Unavailable Unavailable Clarke Puente MD Unavailable Unavailable Clarke Puente MD Unavailable Unavailable AmherstClarke duran MD Unavailable Unavailable PICKERAL JR, J JOSE PA-C Unavailable Unavailable PICKERAL JR, J JOSE PA-C Unavailable Unavailable PICKERAL JR, J JOSE PA-C Unavailable Unavailable PICKERAL JR, J JOSE PA-C Unavailable Unavailable PICKERAL JR, J JOSE PA-C Unavailable Unavailable PICKERAL JR, J JOSE PA-C Unavailable Unavailable PICKERAL JR, J JOSE PA-C Unavailable Unavailable PICKERAL JR, J JOSE PA-C Unavailable Unavailable PICKERAL JR, J JOSE PA-C Unavailable Unavailable PICKERAL JR, J JOSE PA-C Unavailable Unavailable PICKERAL JR, J JOSE PA-C Unavailable Unavailable PICKERAL JR, J JOSE PA-C Unavailable Unavailable PICKERAL JR, J JOSE PA-C Unavailable Unavailable PICKERAL JR, J JOSE PA-C Unavailable Unavailable PICKERAL JR, J JOSE PA-C Unavailable Unavailable PICKERAL JR, J JOSE PA-C Unavailable Unavailable PICKERAL JR, J JOSE PA-C Unavailable Unavailable PICKERAL JR, J JOSE PA-C Unavailable Unavailable PICKERAL JR, J JOSE PA-C Unavailable Unavailable PICKERAL JR, J JOSE PA-C Unavailable Unavailable PICKERAL JR, J JOSE PA-C Unavailable Unavailable PICKERAL JR, J JOES PA-C Unavailable Unavailable PICKERAL JR, J JOSE PA-C Unavailable Unavailable PICKERAL JR, J JOSE PA-C Unavailable Unavailable PICKERAL JR, J JOSE PA-C Unavailable Unavailable PICKERAL JR, J JOSE PA-C Unavailable Unavailable PICKERAL JR, J JOSE PA-C Unavailable Unavailable MIX, ELMIRA CORLEY Unavailable Unavailable MIX, ELMIRA CORLEY Unavailable Unavailable MIX, ELMIRA CORLEY Unavailable Unavailable MIX, ELMIRA CORLEY Unavailable Unavailable MIX, ELMIRA CORLEY Unavailable Unavailable MIX, ELMIRA CORLEY Unavailable Unavailable MIX, ELMIRA CORLEY Unavailable Unavailable MIX, ELMIRA CORLEY Unavailable Unavailable MIX, ELMIRA CORLEY Unavailable Unavailable MIX, ELMIRA CORLEY Unavailable Unavailable MIX, ELMIRA CORLEY Unavailable Unavailable MIX, ELMIRA CORLEY Unavailable Unavailable MIX, ELMIRA CORLEY Unavailable Unavailable MIX, ELMIRA CORLEY Unavailable Unavailable MIX, ELMIRA CORLEY Unavailable Unavailable MIX, ELMIRA CORLEY Unavailable Unavailable MIX, ELMIRA CORLEY Unavailable Unavailable MIX, ELMIRA CORLEY Unavailable Unavailable MIX, ELMIRA CORLEY Unavailable Unavailable MIX, ELMIRA CORLEY Unavailable Unavailable MIX, ELMIRA CORLEY Unavailable Unavailable MIX, ELMIRA CORLEY Unavailable Unavailable MIX, ELMIRA CORLEY Unavailable Unavailable MIX, ELMIRA CORLEY Unavailable Unavailable MIX, ELMIRA CORLEY Unavailable Unavailable MIX, ELMIRA CORLEY Unavailable Unavailable MIX, ELMIRA CORLEY Unavailable Unavailable MIX, ELMIRA CORLEY Unavailable Unavailable MIX, ELMIRA CORLEY Unavailable Unavailable MIX, ELMIRA CORLEY Unavailable Unavailable MIX, ELMIRA CORLEY Unavailable Unavailable MIX, ELMIRA CORLEY Unavailable Unavailable MIX, ELMIRA CORLEY Unavailable Unavailable MIX, ELMIRA CORLEY Unavailable Unavailable MIX, ELMIRA CORLEY Unavailable Unavailable MIX, ELMIRA CORLEY Unavailable Unavailable MIX, ELMIRA CORLEY Unavailable Unavailable MIX, ELMIRA CORLEY Unavailable Unavailable CindiClarke MD Unavailable Unavailable AmherstClarke MD Unavailable Unavailable AmherstClarke MD Unavailable Unavailable CindiClarke MD Unavailable Unavailable CindiClarke duran MD Unavailable Unavailable CindiClarke duran MD Unavailable Unavailable CindiClarke MD Unavailable Unavailable CindiClarke duran MD Unavailable Unavailable AmherstClarke MD Unavailable Unavailable AmherstClarke MD Unavailable Unavailable CindiClarke MD Unavailable Unavailable Amherst F Rico CORLEY Unavailable Unavailable Amherst F Rico CORLEY Unavailable Unavailable Cindi F Rico CORLEY Unavailable Unavailable Amherst F Rico CORLEY Unavailable Unavailable Amherst F Rico CORLEY Unavailable Unavailable Amherst F Rico CORLEY Unavailable Unavailable CindiClarke MD Unavailable Unavailable Amherst F Rico CORLEY Unavailable Unavailable AmherstClarke MD Unavailable Unavailable AmherstClarke MD Unavailable Unavailable AmherstClarke MD Unavailable Unavailable CindiClarke MD Unavailable Unavailable Cindi F Rico CORLEY Unavailable Unavailable Cindi F Rico CORLEY Unavailable Unavailable AmherstClarke MD Unavailable Unavailable AmherstClarke MD Unavailable Unavailable AmherstClarke MD Unavailable Unavailable CindiCalrke MD Unavailable Unavailable CindiClarke MD Unavailable Unavailable AmherstClarke MD Unavailable Unavailable AmherstClarke MD Unavailable Unavailable AmherstClarke MD Unavailable Unavailable AmherstClarke MD Unavailable Unavailable AmherstClarke MD Unavailable Unavailable AmherstClarke MD Unavailable Unavailable CindiClarke MD Unavailable Unavailable CindiClarke MD Unavailable Unavailable AmherstClarke MD Unavailable Unavailable AmherstClarke MD Unavailable Unavailable AmherstClarke MD Unavailable Unavailable CindiClarke MD Unavailable Unavailable AmherstClarke MD Unavailable Unavailable CindiClarke MD Unavailable Unavailable AmherstClarke MD Unavailable Unavailable CindiClarke MD Unavailable Unavailable AmherstClarke MD Unavailable Unavailable AmherstClarke MD Unavailable Unavailable AmherstClarke MD Unavailable Unavailable CindiClarke MD Unavailable Unavailable AmherstClarke MD Unavailable Unavailable AmherstClarke MD Unavailable Unavailable CindiClarke MD Unavailable Unavailable CindiClarke MD Unavailable Unavailable AmherstClarke MD Unavailable Unavailable CindiClarke MD Unavailable Unavailable CindiClarke MD Unavailable Unavailable AmherstClarke MD Unavailable Unavailable AmherstClarke MD Unavailable Unavailable AmherstClarke duran MD Unavailable Unavailable CindiClarke duran MD Unavailable Unavailable CindiClarke MD Unavailable Unavailable CindiClarke MD Unavailable Unavailable AmherstClarke duran MD Unavailable Unavailable CindiClarke MD Unavailable Unavailable AmherstlCarke duran MD Unavailable Unavailable AmherstClarke duran MD Unavailable Unavailable CindiClarke duran MD Unavailable Unavailable CindiClarke MD Unavailable Unavailable AmherstClarke MD Unavailable Unavailable CindiClarke MD Unavailable Unavailable CindiClarke MD Unavailable Unavailable AmherstClarke MD Unavailable Unavailable CindiClarke MD Unavailable Unavailable AmherstClarke MD Unavailable Unavailable CindiClarke MD Unavailable Unavailable CindiClarke MD Unavailable Unavailable CindiClarke MD Unavailable Unavailable CindiClarke MD Unavailable Unavailable AmherstClarke MD Unavailable Unavailable CindiClarke MD Unavailable Unavailable Clarke Puente MD Unavailable Unavailable Clarke Puente MD Unavailable Unavailable Clarke Puente MD Unavailable Unavailable Clarke Puente MD Unavailable Unavailable Clarke Puente MD Unavailable Unavailable Trickey, J Dang PA Unavailable Unavailable Trickey, J Dang PA Unavailable Unavailable Trickey, J Dang PA Unavailable Unavailable Trickey, J Dang PA Unavailable Unavailable Trickey, J Dang PA Unavailable Unavailable Trickey, J Dang PA Unavailable Unavailable Trickey, J Dang PA Unavailable Unavailable Trickey, J Dang PA Unavailable Unavailable Trickey, J Dang PA Unavailable Unavailable Trickey, J Dang PA Unavailable Unavailable Trickey, J Dang PA Unavailable Unavailable Trickey, J Dang PA Unavailable Unavailable Trickey, J Dang PA Unavailable Unavailable Trickey, J Dang PA Unavailable Unavailable Trickey, J Dang PA Unavailable Unavailable Trickey, J Dang PA Unavailable Unavailable Trickey, J Dang PA Unavailable Unavailable Trickey, J Dang PA Unavailable Unavailable Trickey, J Dang PA Unavailable Unavailable Trickey, J Dang PA Unavailable Unavailable Trickey, J Dang PA Unavailable Unavailable Trickey, J Dang PA Unavailable Unavailable Trickey, J Dang PA Unavailable Unavailable Trickey, J Dang PA Unavailable Unavailable Trickey, J Dang PA Unavailable Unavailable Trickey, J Dang PA Unavailable Unavailable Trickey, J Dang PA Unavailable Unavailable Trickey, J Dang PA Unavailable Unavailable Trickey, J Dang PA Unavailable Unavailable Trickey, J Dang PA Unavailable Unavailable Trickey, J Dang PA Unavailable Unavailable Trickey, J Dang PA Unavailable Unavailable Trickey, J Dang PA Unavailable Unavailable Trickey, J Dang PA Unavailable Unavailable Trickey, J Dang PA Unavailable Unavailable Trickey, J Dang PA Unavailable Unavailable Trickey, J Dang PA Unavailable Unavailable Trickey, J Dang PA Unavailable Unavailable Trickey, J Dang PA Unavailable Unavailable Trickey, J Dang PA Unavailable Unavailable Trickey, J Dang PA Unavailable Unavailable Trickey, J Dang PA Unavailable Unavailable Trickey, J Dang PA Unavailable Unavailable Trickey, J Dang PA Unavailable Unavailable Trickey, J Dang PA Unavailable Unavailable Trickey, J Dang PA Unavailable Unavailable Trickey, J Dang PA Unavailable Unavailable Trickey, J Dang PA Unavailable Unavailable Trickey, J Dang PA Unavailable Unavailable Prashant, K Tiffany RPA-C Unavailable Unavailable Prashant, K Tiffany RPA-C Unavailable Unavailable Prashant, K Tiffany RPA-C Unavailable Unavailable Prashant, K Tiffany RPA-C Unavailable Unavailable Prashant, K Tiffany RPA-C Unavailable Unavailable Prashant, K Tiffany RPA-C Unavailable Unavailable Prashant, K Tiffany RPA-C Unavailable Unavailable Prashant, K Tiffany RPA-C Unavailable Unavailable Prashant, K Tiffany RPA-C Unavailable Unavailable Prashant, K Tiffany RPA-C Unavailable Unavailable Prashant, K Tiffany RPA-C Unavailable Unavailable Prashant, K Tiffany RPA-C Unavailable Unavailable Prashant, K Tiffany RPA-C Unavailable Unavailable Prashant, K Tiffany RPA-C Unavailable Unavailable Prashant, K Tiffany RPA-C Unavailable Unavailable Prashant, K Tiffany RPA-C Unavailable Unavailable Prashant, K Tiffany RPA-C Unavailable Unavailable Prashant, K Tiffany RPA-C Unavailable Unavailable Prashant, K Tiffany RPA-C Unavailable Unavailable Prashant, K Tiffany RPA-C Unavailable Unavailable Prashant, K Tiffany RPA-C Unavailable Unavailable Prashant, K Tiffany RPA-C Unavailable Unavailable Prashant, K Tiffany RPA-C Unavailable Unavailable Prashant, K Tiffany RPA-C Unavailable Unavailable Prashant, K Tiffany RPA-C Unavailable Unavailable Prashant, K Tiffany RPA-C Unavailable Unavailable Prashant, K Tiffany RPA-C Unavailable Unavailable Prashant, K Tiffany RPA-C Unavailable Unavailable Prashant, K Tiffany RPA-C Unavailable Unavailable Prashant, K Tiffany RPA-C Unavailable Unavailable Prashant, K Tiffany RPA-C Unavailable Unavailable Prashant, K Tiffany RPA-C Unavailable Unavailable ISIAH, J Lety ANP Unavailable Unavailable ISIAH, J Lety ANP Unavailable Unavailable ISIAH, J Lety ANP Unavailable Unavailable ISIAH, J Lety ANP Unavailable Unavailable ISIAH, J Lety ANP Unavailable Unavailable ISIAH, J Lety ANP Unavailable Unavailable ISIAH, J Lety ANP Unavailable Unavailable ISIAH, J Lety ANP Unavailable Unavailable ISIAH, J Lety ANP Unavailable Unavailable ISIAH, J Lety ANP Unavailable Unavailable ISIAH, J Lety ANP Unavailable Unavailable ISIAH, J Lety ANP Unavailable Unavailable ISIAH, J Lety ANP Unavailable Unavailable ISIAH, J Lety ANP Unavailable Unavailable ISIAH, J Lety ANP Unavailable Unavailable ISIAH, J Lety ANP Unavailable Unavailable ISIAH, J Lety ANP Unavailable Unavailable ISIAH, J Lety ANP Unavailable Unavailable ISIAH, J Lety ANP Unavailable Unavailable ISIAH, J Lety ANP Unavailable Unavailable ISIAH, J Lety ANP Unavailable Unavailable ISIAH, J Lety ANP Unavailable Unavailable ISIAH, J Lety ANP Unavailable Unavailable ISIAH, J Lety ANP Unavailable Unavailable ISIAH, J Lety ANP Unavailable Unavailable ISIAH, J Lety ANP Unavailable Unavailable ISIAH, J Lety ANP Unavailable Unavailable ISIAH, J Lety ANP Unavailable Unavailable ISIAH, J Lety ANP Unavailable Unavailable ISIAH, J Lety ANP Unavailable Unavailable ISIAH, J Lety ANP Unavailable Unavailable ISIAH, J Lety ANP Unavailable Unavailable ISIAH, J Lety ANP Unavailable Unavailable ISIAH, J Lety ANP Unavailable Unavailable ISIAH, J Lety ANP Unavailable Unavailable ISIAH, J Lety ANP Unavailable Unavailable ISIAH, J Lety ANP Unavailable Unavailable ISIAH, J Lety ANP Unavailable Unavailable ISIAH, J Lety ANP Unavailable Unavailable ISIAH, J Lety ANP Unavailable Unavailable ISIAH, J Lety ANP Unavailable Unavailable ISIAH, J Lety ANP Unavailable Unavailable ISIAH, J Lety ANP Unavailable Unavailable ISIAH, J Lety ANP Unavailable Unavailable ISIAH, J Lety ANP Unavailable Unavailable ISIAH, J Lety ANP Unavailable Unavailable ISIAH, J Lety ANP Unavailable Unavailable ISIAH, J Lety ANP Unavailable Unavailable ISIAH, J Lety ANP Unavailable Unavailable ISIAH, J Lety ANP Unavailable Unavailable ISIAH, J Lety ANP Unavailable Unavailable ISIAH, J Lety ANP Unavailable Unavailable ISIAH, J Lety ANP Unavailable Unavailable ISIAH, J Lety ANP Unavailable Unavailable ISIAH, J Lety ANP Unavailable Unavailable ISIAH, J Lety ANP Unavailable Unavailable ISIAH, J Lety ANP Unavailable Unavailable ISIAH, J Lety ANP Unavailable Unavailable ISIAH, J Lety ANP Unavailable Unavailable ISIAH, J Lety ANP Unavailable Unavailable ISIAH, J Lety ANP Unavailable Unavailable ISIAH, J Lety ANP Unavailable Unavailable ISIAH, J Lety ANP Unavailable Unavailable ISIAH, J Lety ANP Unavailable Unavailable Amherst, Christopher DO Unavailable Unavailable Amherst, Christopher DO Unavailable Unavailable Cindi, Christopher DO Unavailable Unavailable Amherst, Christopher DO Unavailable Unavailable Cindi, Christopher DO Unavailable Unavailable Amherst, Christopher DO Unavailable Unavailable Cindi, Christopher DO Unavailable Unavailable Amherst, Christopher DO Unavailable Unavailable Cindi, Christopher DO Unavailable Unavailable Amherst, Christopher DO Unavailable Unavailable Re-disclosure Warning The records that you are about to access may contain information from federally-assisted alcohol or drug abuse programs. If such information is present, then the following federally mandated warning applies: This information has been disclosed to you from records protected by federal confidentiality rules (42 CFR part 2). The federal rules prohibit you from making any further disclosure of this information unless further disclosure is expressly permitted by the written consent of the person to whom it pertains or as otherwise permitted by 42 CFR part 2. A general authorization for the release of medical or other information is NOT sufficient for this purpose. The Federal rules restrict any use of the information to criminally investigate or prosecute any alcohol or drug abuse patient.The records that you are about to access may contain highly sensitive health information, the redisclosure of which is protected by Article 27-F of the [facility] Public Health law. If you continue you may have access to information: Regarding HIV / AIDS; Provided by facilities licensed or operated by the [facility] Office of Mental Health; or Provided by the [facility] Office for People With Developmental Disabilities. If such information is present, then the following [facility] mandated warning applies: This information has been disclosed to you from confidential records which are protected by state law. State law prohibits you from making any further disclosure of this information without the specific written consent of the person to whom it pertains, or as otherwise permitted by law. Any unauthorized further disclosure in violation of state law may result in a fine or residential sentence or both. A general authorization for the release of medical or other information is NOT sufficient authorization for further disc losure. Family History Family Member Name Family Member Gender Family Member Status Date o f Status Description Data Source(s) Unknown Unknown Problem [facility] ([facility]) Unknown Unknown Problem [facility] ([facility], ) sister age 63 Unknown Unknown Problem [facility] ([facility]) Unknown Unknown Problem [facility] ([facility] Unknown Unknown Problem [facility] ([facility]) Unknown Unknown Problem [facility] ([facility] ) Encounters Encounter Providers Location Date Indications Data Source(s ) OFFICE OUTPATIENT VISIT 15 MINUTES Attender: ELMIRA ALMEIDA Physical Therapy 04/04/2021 03:30:00 PM EDT [facility] ([facility]) Outpatient Attender: ELMIRA Calverterrmartha: Rico Mata-FLAQUITO 04/02/2021 12:00:00 AM EDT - 04/02/2021 04:41:08 PM EDT follow up [facility] follow up Outpatient Attender: Rico Pereira 0 02/23/2021 02:30:00 PM EDT [facility] ([facility] ) Outpatient Attender: Contreras Antony 02/07/2021 02:40:00 PM EDT [facility] ([facility] ) Outpatient Attender: William Lopez/Elvia/Dakotah/Re indl 11/03/2020 01:45:00 PM EDT [facility] ([facility]) Outpatient Attender: Rico Pereira 0 10/20/2020 03:00:00 PM EDT [facility] ([facility] ) Outpatient Attender: Lety Pereira 08/2020 08:40:00 AM EDT [facility] ([facility] ) Outpatient Attender: ELMIRA Calverterrer: Rico Mata-FLAQUITO 09/27/2020 12:00:00 AM EDT - 09/27/2020 03:32:45 PM EDT Malignant neoplasm of middle lobe, bronchus or lung [facility] Malignant neoplasm of middle lobe, bronc hus or lung Outpatient Attender: William Lopez/Elvia/[place]/Re indl 08/15/2020 11:15:00 AM EDT [facility] ([facility]) Recurring Patient Attender: Tiffany Cerda RPA-CReferrer: Dang ALMEIDA 07/17/2020 03:38:45 PM EST [facility] Outpatient Attender: ELMIRA MALDONADOeferrer: Rico RFANCIS 06/09/2020 12:00:00 AM EST - 06/09/2020 04:32:24 PM EST follow up [facility] follow up Outpatient Attender: ELMIRA quinones 05/30/2020 02:30:00 PM EST [facility] ([facility]) Outpatient Attender: ELMIRA NUR MDReferrer: Rico duran MD [id number] 05/05/2020 12:00:00 AM EST follow up [facility] follow up Outpatient Attender: Rico Pereira 1 06/19/2019 02:00:00 PM EST [facility] ([facility] ) Outpatient Attender: JOSE Pereira 1 01:20:00 PM EDT [facility] ([facility] ) Outpatient Attender: William Lopez/Elvia/[place]/[facility] indl 03/08/2020 01:00:00 PM EDT [facility] ([facility] Immunizations Vaccine Date Status Description Data Source(s) COVID-19 VACCINE Moderna 09/01/2020 12:00:00 AM EDT completed [facility] Vaccine Series Complete: YESThis Data wa s Submitted to [facility] Via [employer]. COVID-19 VACCINE Moderna 08/04/2020 12:00:00 AM EST completed [facility] Vaccine Series Complete: NOThis Data was Submitted to [facility] Via [employer]. pneumococcal polysaccharide PPV23 06/16/2020 02:43:00 PM EST comple alfonso [facility] ([facility]) Medications Medication Brand Name Start Date Product Form Dose Route Admi nistrative Instructions Pharmacy Instructions Status Indications Reaction Description Data Source(s) 5 mg 04/13/2021 12:00:00 AM EST tablet 30 TAKE ONE TABLET BY MOUTH EVERY DAY TAKE ONE TABLET BY MOUTH EVERY DAY SOLD: 04/16/2021 [facility] Rosuvastatin calcium 40 MG Oral Tablet ROSUVASTATIN CALCIUM 04/13/2021 12:00:00 AM EST tablet 90 TAKE ONE TABLET BY MOUTH MENA RY DAY TAKE ONE TABLET BY MOUTH EVERY DAY SOLD: 04/16/2021 [facility] 4 mg 04/06/2021 12:00:00 AM EDT tablet 120 TAKE ONE TABLET BY MOUTH FOUR TIMES A DAY NEEDED NAUSEA TAKE ONE TABLET BY MOUTH FOUR TIMES A DA Y NEEDED NAUSEA SOLD: 04/13/2021 [facility] Ondansetron 4 MG Oral Tablet Ondansetron HCL 04/05/2021 12:00:00 AM EDT active [facility] ([facility]) 1 mg 03/22/2021 12:00:00 AM EDT tablet 90 TAKE ONE TABLET BY MOUTH THREE TIMES A DAY, MAX OF 3 PER DAY TAKE ONE TABLET BY MOUTH THREE TIMES A D AY, MAX OF 3 PER DAY SOLD: 03/27/2021 [facility] 325 mg (65 mg iron) 02/24/2021 12:00:00 AM EDT tablet 30 TAKE ONE TABLET BY MOUTH EVERY DAY WITH JUICE TAKE ONE TABLET BY MOUTH EVERY DAY WITH JUICE SOLD: 02/24/2021 [facility] 325 mg (65 mg iron) 02/24/2021 12:00:00 AM EDT tablet 30 TAKE ONE TABLET BY MOUTH EVERY DAY WITH JUICE TAKE ONE TABLET BY MOUTH EVERY DAY WITH JUICE SOLD: 03/27/2021 [facility] 75 mg 02/23/2021 12:00:00 AM EDT capsule,extended releas e 24hr 60 TAKE 2 CAPSULES BY MOUTH EVERY DAY MAXIMUM DAILY DOSE = 2 CAPSULES TAKE 2 CAPSULES BY MOUTH EVERY DAY MAXIMUM DAILY DOSE = 2 CAPSULES SOLD: 02/23/2021 [facility] 75 mg 02/23/2021 12:00:00 AM EDT capsule,extended releas e 24hr 60 TAKE 2 CAPSULES BY MOUTH EVERY DAY MAXIMUM DAILY DOSE = 2 CAPSULES TAKE 2 CAPSULES BY MOUTH EVERY DAY MAXIMUM DAILY DOSE = 2 CAPSULES SOLD: 03/27/2021 [facility] ferrous sulfate 325 MG Oral Tablet Iron 02/23/2021 12:00:00 AM EDT ORAL active [facility] ([facility]) 1 mg 02/20/2021 12:00:00 AM EDT tablet 90 TAKE ONE TABLET BY MOUTH THREE TIMES A DAY MAXIMUM DAILY DOSE = 3 TABLETS TAKE ONE TABLET BY MOUTH THREE TIMES A DAY MAXIMUM DAILY DOSE = 3 TABLETS SOLD: 02/21/2021 [facility] 100 mcg 02/19/2021 12:00:00 AM EDT tablet 30 TAKE ONE TABLET BY MOUTH EVERY DAY TAKE ONE TABLET BY MOUTH EVERY DAY SOLD: 04/21/2021 [facility] 100 mcg 02/19/2021 12:00:00 AM EDT tablet 30 TAKE ONE TABLET BY MOUTH EVERY DAY TAKE ONE TABLET BY MOUTH EVERY DAY SOLD: 03/22/2021 [facility] 100 mcg 02/19/2021 12:00:00 AM EDT tablet 30 TAKE ONE TABLET BY MOUTH EVERY DAY TAKE ONE TABLET BY MOUTH EVERY DAY SOLD: 02/20/2021 [facility] ferrous sulfate 325 MG Oral Tablet Iron (Ferrous Sulfate) 12:00:00 AM EDT ORAL completed [facility] ([facility]) Rosuvastatin calcium 40 MG Oral Tablet Rosuvastatin Calcium 02/07/2021 12:00:00 AM EDT ORAL active [facility] ([facility]) 4 mg 01/27/2021 12:00:00 AM EDT tablet 120 TAKE ONE TABLET BY MOUTH FOUR TIMES A DAY NEEDED NAUSEA TAKE ONE TABLET BY MOUTH FOUR TIMES A DA Y NEEDED NAUSEA SOLD: 03/09/2021 [facility] 4 mg 01/27/2021 12:00:00 AM EDT tablet 120 TAKE ONE TABLET BY MOUTH FOUR TIMES A DAY NEEDED NAUSEA TAKE ONE TABLET BY MOUTH FOUR TIMES A DA Y NEEDED NAUSEA SOLD: 02/07/2021 [facility] 15 mg 01/22/2021 12:00:00 AM EDT tablet 60 TAKE 1 TABLET BY MOUTH DAILY WITH FOOD OR DRINK TAKE 1 TABLET BY MOUTH DAILY WITH FOOD OR DRINK SOLD: 2020 [facility] 15 mg 01/22/2021 12:00:00 AM EDT tablet 60 TAKE 1 TABLET BY MOUTH DAILY WITH FOOD OR DRINK TAKE 1 TABLET BY MOUTH DAILY WITH FOOD OR DRINK SOLD: 2020 [facility] 1 mg 01/21/2021 12:00:00 AM EDT tablet 120 TAKE 2 TABLETS BY MOUTH TWO TIMES A DAY MAXIMUM DAILY DOSE = 4 TABLETS TAKE 2 TABLETS BY MOUTH TWO TIMES A DAY MAXIMUM DAILY DOSE = 4 TABLETS SOLD: 01/21/2021 [facility] 40 mg 01/20/2021 12:00:00 AM EDT capsule,delayed release (DR/EC) 180 TAKE 2 CAPSULES BY MOUTH EVERY DAY TAKE 2 CAPSULES BY MOUTH EVERY DAY SOLD: 01/21/2021 [facility] 40 mg 01/20/2021 12:00:00 AM EDT capsule,delayed release (DR/EC) 180 TAKE 2 CAPSULES BY MOUTH EVERY DAY TAKE 2 CAPSULES BY MOUTH EVERY DAY SOLD: 04/21/2021 [facility] 150 mg 01/19/2021 12:00:00 AM EDT capsule,extended releas e 24hr 30 TAKE ONE CAPSULE BY MOUTH ONCE DAILY TAKE ONE CAPSULE BY MOUTH ONCE DAILY SOLD: 04/21/2021 [facility] 150 mg 01/19/2021 12:00:00 AM EDT capsule,extended releas e 24hr 30 TAKE ONE CAPSULE BY MOUTH ONCE DAILY TAKE ONE CAPSULE BY MOUTH ONCE DAILY SOLD: 01/20/2021 [facility] 150 mg 01/19/2021 12:00:00 AM EDT capsule,extended releas e 24hr 30 TAKE ONE CAPSULE BY MOUTH ONCE DAILY TAKE ONE CAPSULE BY MOUTH ONCE DAILY SOLD: 02/20/2021 [facility] 150 mg 01/19/2021 12:00:00 AM EDT capsule,extended releas e 24hr 30 TAKE ONE CAPSULE BY MOUTH ONCE DAILY TAKE ONE CAPSULE BY MOUTH ONCE DAILY SOLD: 03/22/2021 [facility] 250 mg 01/18/2021 12:00:00 AM EDT tablet 6 TAKE TWO TABLETS BY MOUTH AT ONCE ON THE FIRST DAY THEN TAKE ONE DAILY THEREAFTER TAKE TWO TABLETS BY MOUTH AT ONCE ON THE FIRST DAY THEN TAKE ONE DAILY THEREAFTER SOLD: 01/18/2021 [facility] 500 mg 01/03/2021 12:00:00 AM EDT tablet 360 TAKE TWO TABLETS BY MOUTH TWICE A DAY TAKE TWO TABLETS BY MOUTH TWICE A DAY SOLD: 04/03/2021 [facility] 500 mg 01/03/2021 12:00:00 AM EDT tablet 360 TAKE TWO TABLETS BY MOUTH TWICE A DAY TAKE TWO TABLETS BY MOUTH TWICE A DAY SOLD: 01/04/2021 [facility] Sulfamethoxazole 400 MG / Trimethoprim 80 MG Oral Tabl et 400-80 mg SULFAMETHOXAZOLE/TRIMETHOPRIM 12/29/2020 12:00:00 AM EDT tablet 30 TAKE ONE TABLET BY MOUTH TWICE A DAY FOR 15 DAYS TAKE ONE TABLET BY MOUTH TWICE A DAY FOR 15 DAYS SOLD: 01/04/2021 [facility] Sulfamethoxazole 400 MG / Trimethoprim 80 MG Oral Tabl et 400-80 mg SULFAMETHOXAZOLE/TRIMETHOPRIM 12/29/2020 12:00:00 AM EDT tablet 30 TAKE ONE TABLET BY MOUTH TWICE A DAY FOR 15 DAYS TAKE ONE TABLET BY MOUTH TWICE A DAY FOR 15 DAYS SOLD: 01/18/2021 [facility] 1 mg 12/23/2020 12:00:00 AM EDT tablet 120 TAKE TWO TABLETS BY MOUTH TWICE A DAY MAXIMUM DAILY DOSE = 4 TABLETS TAKE TWO TABLETS BY MOUTH TWICE A DAY MA XIMUM DAILY DOSE = 4 TABLETS SOLD: 12/23/2020 [facility] 100 mcg 12/22/2020 12:00:00 AM EDT tablet 30 TAKE ONE TABLET BY MOUTH EVERY DAY TAKE ONE TABLET BY MOUTH EVERY DAY SOLD: 01/21/2021 [facility] 100 mcg 12/22/2020 12:00:00 AM EDT tablet 30 TAKE ONE TABLET BY MOUTH EVERY DAY TAKE ONE TABLET BY MOUTH EVERY DAY SOLD: 12/23/2020 [facility] 0.05 % 12/03/2020 12:00:00 AM EDT solution 50 APPLY TWICE A DAY TO AFFECTED SCALP APPLY TWICE A DAY TO AFFECTED SCALP SOLD: 01/04/2021 [facility] 0.05 % 12/03/2020 12:00:00 AM EDT solution 50 APPLY TWICE A DAY TO AFFECTED SCALP APPLY TWICE A DAY TO AFFECTED SCALP SOLD: 12/05/2020 [facility] 1 mg 11/29/2020 12:00:00 AM EDT tablet 60 TAKE TWO TABLETS BY MOUTH TWICE A DAY MAXIMUM DAILY DOSE = 4 TABLETS TAKE TWO TABLETS BY MOUTH TWICE A DAY MA XIMUM DAILY DOSE = 4 TABLETS SOLD: 12/01/2020 [facility] zaleplon 10 MG Oral Capsule ZALEPLON 11/25/2020 12:00:00 AM EDT capsu le 30 TAKE 1 CAPSULE [10MG] BY MOUTH ONCE DAILY AT BEDTIME NEEDED MAXIMUM DAILY DOSE = 1 CAPSULE TAKE 1 CAPSULE [10MG] BY MOUTH ONCE FE Y AT BEDTIME NEEDED MAXIMUM DAILY DOSE = 1 CAPSULE SOLD: 11/27/2020 [facility] Doxycycline Monohydrate 100 MG Oral Capsule Doxycycline [place] hydrate 11/24/2020 12:00:00 AM EDT ORAL completed [facility] ([facility]) 100 mg 11/24/2020 12:00:00 AM EDT capsule 14 TAKE ONE CAPSULE BY MOUTH TWICE A DAY FOR 7 DAYS TAKE ONE CAPSULE BY MOUTH TWICE A DAY FOR 7 DAYS SOLD: 11/24/2020 [facility] Sulfamethoxazole 400 MG / Trimethoprim 80 MG Oral Tabl et 400-80 mg SULFAMETHOXAZOLE/TRIMETHOPRIM 11/15/2020 12:00:00 AM EDT tablet 30 TAKE ONE TABLET BY MOUTH TWICE A DAY FOR 15 DAYS TAKE ONE TABLET BY MOUTH TWICE A DAY FOR 15 DAYS SOLD: 12/01/2020 [facility] Sulfamethoxazole 400 MG / Trimethoprim 80 MG Oral Tabl et 400-80 mg SULFAMETHOXAZOLE/TRIMETHOPRIM 11/15/2020 12:00:00 AM EDT tablet 30 TAKE ONE TABLET BY MOUTH TWICE A DAY FOR 15 DAYS TAKE ONE TABLET BY MOUTH TWICE A DAY FOR 15 DAYS SOLD: 11/17/2020 [facility] Sulfamethoxazole 400 MG / Trimethoprim 80 MG Oral Tabl et 400-80 mg SULFAMETHOXAZOLE/TRIMETHOPRIM 11/15/2020 12:00:00 AM EDT tablet 30 TAKE ONE TABLET BY MOUTH TWICE A DAY FOR 15 DAYS TAKE ONE TABLET BY MOUTH TWICE A DAY FOR 15 DAYS SOLD: 12/16/2020 [facility] 75 mg 11/06/2020 12:00:00 AM EDT capsule,extended releas e 24hr 90 TAKE 3 CAPSULES BY MOUTH EVERY DAY MAXIMUM DAILY DOSE =3 TAKE 3 CAPSULES BY MOUTH EVERY DAY MAXIMUM DAILY DOSE =3 SOLD: 11/06/2020 [facility] 75 mg 11/06/2020 12:00:00 AM EDT capsule,extended releas e 24hr 90 TAKE 3 CAPSULES BY MOUTH EVERY DAY MAXIMUM DAILY DOSE =3 TAKE 3 CAPSULES BY MOUTH EVERY DAY MAXIMUM DAILY DOSE =3 SOLD: 02/07/2021 [facility] 75 mg 11/06/2020 12:00:00 AM EDT capsule,extended releas e 24hr 90 TAKE 3 CAPSULES BY MOUTH EVERY DAY MAXIMUM DAILY DOSE =3 TAKE 3 CAPSULES BY MOUTH EVERY DAY MAXIMUM DAILY DOSE =3 SOLD: 01/04/2021 [facility] 75 mg 11/06/2020 12:00:00 AM EDT capsule,extended releas e 24hr 90 TAKE 3 CAPSULES BY MOUTH EVERY DAY MAXIMUM DAILY DOSE =3 TAKE 3 CAPSULES BY MOUTH EVERY DAY MAXIMUM DAILY DOSE =3 SOLD: 12/05/2020 [facility] Sulfamethoxazole 400 MG / Trimethoprim 80 MG Oral Tabl et 400-80 mg SULFAMETHOXAZOLE/TRIMETHOPRIM 11/03/2020 12:00:00 AM EDT tablet 30 TAKE ONE TABLET BY MOUTH TWICE A DAY FOR 15 DAYS TAKE ONE TABLET BY MOUTH TWICE A DAY FOR 15 DAYS SOLD: 11/04/2020 [facility] 1 mg 10/28/2020 12:00:00 AM EDT tablet 90 TAKE 1 TABLET BY MOUTH THREE TIMES A DAY MAX DAILY DOSE = 3 TABLETS TAKE 1 TABLET BY MOUTH THREE TIMES A DAY MAX DAILY DOSE = 3 TABLETS SOLD: 10/29/2020 [facility] 100 mcg 10/23/2020 12:00:00 AM EDT tablet 30 TAKE ONE TABLET BY MOUTH EVERY DAY TAKE ONE TABLET BY MOUTH EVERY DAY SOLD: 11/24/2020 [facility] 100 mcg 10/23/2020 12:00:00 AM EDT tablet 30 TAKE ONE TABLET BY MOUTH EVERY DAY TAKE ONE TABLET BY MOUTH EVERY DAY SOLD: 10/24/2020 [facility] 5 mg 10/21/2020 12:00:00 AM EDT tablet 30 TAKE ONE TABLET BY MOUTH EVERY DAY TAKE ONE TABLET BY MOUTH EVERY DAY SOLD: 02/14/2021 [facility] 5 mg 10/21/2020 12:00:00 AM EDT tablet 30 TAKE ONE TABLET BY MOUTH EVERY DAY TAKE ONE TABLET BY MOUTH EVERY DAY SOLD: 10/24/2020 [facility] 5 mg 10/21/2020 12:00:00 AM EDT tablet 30 TAKE ONE TABLET BY MOUTH EVERY DAY TAKE ONE TABLET BY MOUTH EVERY DAY SOLD: 11/24/2020 [facility] 4 mg 10/21/2020 12:00:00 AM EDT tablet 120 TAKE ONE TABLET BY MOUTH FOUR TIMES A DAY NEEDED FOR NAUSEA TAKE ONE TABLET BY MOUTH FOUR TIMES A DA Y NEEDED FOR NAUSEA SOLD: 10/24/2020 [facility] 5 mg 10/21/2020 12:00:00 AM EDT tablet 30 TAKE ONE TABLET BY MOUTH EVERY DAY TAKE ONE TABLET BY MOUTH EVERY DAY SOLD: 12/23/2020 [facility] 4 mg 10/21/2020 12:00:00 AM EDT tablet 120 TAKE ONE TABLET BY MOUTH FOUR TIMES A DAY NEEDED FOR NAUSEA TAKE ONE TABLET BY MOUTH FOUR TIMES A DA Y NEEDED FOR NAUSEA SOLD: 11/24/2020 [facility] 5 mg 10/21/2020 12:00:00 AM EDT tablet 30 TAKE ONE TABLET BY MOUTH EVERY DAY TAKE ONE TABLET BY MOUTH EVERY DAY SOLD: 03/17/2021 [facility] 5 mg 10/21/2020 12:00:00 AM EDT tablet 30 TAKE ONE TABLET BY MOUTH EVERY DAY TAKE ONE TABLET BY MOUTH EVERY DAY SOLD: 01/15/2021 [facility] 4 mg 10/21/2020 12:00:00 AM EDT tablet 120 TAKE ONE TABLET BY MOUTH FOUR TIMES A DAY NEEDED FOR NAUSEA TAKE ONE TABLET BY MOUTH FOUR TIMES A DA Y NEEDED FOR NAUSEA SOLD: 12/23/2020 [facility] Bisoprolol Fumarate 5 MG Oral Tablet Bisoprolol Fumarate 12:00:00 AM EDT ORAL active [facility] ([facility]) zaleplon 10 MG Oral Capsule ZALEPLON 10/10/2020 12:00:00 AM EDT capsu le 30 TAKE ONE CAPSULE BY MOUTH AT BEDTIME NEEDED. MAXIMUM DAILY DOSE = 1 TAKE ONE CAPSULE BY MOUTH AT BEDTIME NEEDED. MAXIMUM DAILY DOSE = 1 SOLD: 10/11/2020 [facility] 33 gauge 10/07/2020 12:00:00 AM EDT misc 200 TEST TWICE A DAY TEST TWICE A DAY SOLD: 01/04/2021 [facility] 33 gauge 10/07/2020 12:00:00 AM EDT misc 200 TEST TWICE A DAY TEST TWICE A DAY SOLD: 04/03/2021 [facility] 33 gauge 10/07/2020 12:00:00 AM EDT misc 200 TEST TWICE A DAY TEST TWICE A DAY SOLD: 10/07/2020 [facility] Sudarshantouch Delica Plus Lancets Extra Fine 33G 10/06/2020 12:00 :00 AM EDT active [facility] ([facility]) 0.05 % 10/03/2020 12:00:00 AM EDT solution 50 APPLY TWICE A DAY TO AFFECTED SCALP APPLY TWICE A DAY TO AFFECTED SCALP SOLD: 10/04/2020 [facility] 0.05 % 10/03/2020 12:00:00 AM EDT solution 50 APPLY TWICE A DAY TO AFFECTED SCALP APPLY TWICE A DAY TO AFFECTED SCALP SOLD: 11/04/2020 [facility] Clobetasol Propionate 0.5 MG/ML Topical Solution Clobetasol Propionate 10/03/2020 12:00:00 AM EDT active [facility] ([facility]) Trelegy Ellipta Trelegy Ellipta 10/03/2020 12:00:00 AM EDT active [facility] ([facility]) 1 mg 09/28/2020 12:00:00 AM EDT tablet 90 TAKE ONE TABLET BY MOUTH THREE TIMES A DAY - MAXIMUM DAILY DOSE = 3 TABLETS TAKE ONE TABLET BY MOUTH THREE TIMES A DAY - MAXIMUM DAILY DOSE = 3 TABLETS SOLD: 09/28/2020 [facility] Sulfamethoxazole 400 MG / Trimethoprim 80 MG Oral Tabl et 400-80 mg SULFAMETHOXAZOLE/TRIMETHOPRIM 09/25/2020 12:00:00 AM EDT tablet 30 TAKE ONE TABLET BY MOUTH TWICE A DAY FOR 15 DAYS TAKE ONE TABLET BY MOUTH TWICE A DAY FOR 15 DAYS SOLD: 09/28/2020 [facility] Sulfamethoxazole 400 MG / Trimethoprim 80 MG Oral Tabl et 400-80 mg SULFAMETHOXAZOLE/TRIMETHOPRIM 09/25/2020 12:00:00 AM EDT tablet 30 TAKE ONE TABLET BY MOUTH TWICE A DAY FOR 15 DAYS TAKE ONE TABLET BY MOUTH TWICE A DAY FOR 15 DAYS SOLD: 10/11/2020 [facility] Sulfamethoxazole 400 MG / Trimethoprim 80 MG Oral Tabl et 400-80 mg SULFAMETHOXAZOLE/TRIMETHOPRIM 09/25/2020 12:00:00 AM EDT tablet 30 TAKE ONE TABLET BY MOUTH TWICE A DAY FOR 15 DAYS TAKE ONE TABLET BY MOUTH TWICE A DAY FOR 15 DAYS SOLD: 10/24/2020 [facility] Naloxone 0.5 MG / Pentazocine 50 MG Oral Tablet Pentazocine- Naloxone HCL 09/18/2020 12:00:00 AM EDT ORAL active [facility] ([facility]) 10 mg 09/09/2020 12:00:00 AM EDT tablet 90 TAKE 1 TABLET BY MOUTH EVERY DAY TAKE 1 TABLET BY MOUTH EVERY DAY SOLD: 09/10/2020 [facility] Covid-19 vaccine, Unspecified 09/01/2020 12:00:00 AM EDT completed [facility] ([facility]) Medication administered onsite 1 mg 08/29/2020 12:00:00 AM EDT tablet 90 TAKE 1 TABLET BY MOUTH 3 TIMES A DAY MAXIMUM DAILY DOSE = 3 TABLETS TAKE 1 TABLET BY MOUTH 3 TIMES A DAY MAX IMUM DAILY DOSE = 3 TABLETS SOLD: 08/30/2020 [facility] 100 mcg 08/19/2020 12:00:00 AM EDT tablet 30 TAKE ONE TABLET BY MOUTH EVERY DAY TAKE ONE TABLET BY MOUTH EVERY DAY SOLD: 09/24/2020 [facility] 100 mcg 08/19/2020 12:00:00 AM EDT tablet 30 TAKE ONE TABLET BY MOUTH EVERY DAY TAKE ONE TABLET BY MOUTH EVERY DAY SOLD: 08/26/2020 [facility] Sulfamethoxazole 400 MG / Trimethoprim 80 MG Oral Tabl et 400-80 mg SULFAMETHOXAZOLE/TRIMETHOPRIM 08/15/2020 12:00:00 AM EDT tablet 30 TAKE ONE TABLET BY MOUTH TWICE A DAY FOR 15 DAYS TAKE ONE TABLET BY MOUTH TWICE A DAY FOR 15 DAYS SOLD: 08/16/2020 [facility] Sulfamethoxazole 400 MG / Trimethoprim 80 MG Oral Tabl et 400-80 mg SULFAMETHOXAZOLE/TRIMETHOPRIM 08/15/2020 12:00:00 AM EDT tablet 30 TAKE ONE TABLET BY MOUTH TWICE A DAY FOR 15 DAYS TAKE ONE TABLET BY MOUTH TWICE A DAY FOR 15 DAYS SOLD: 08/30/2020 [facility] Sulfamethoxazole 400 MG / Trimethoprim 80 MG Oral Tabl et 400-80 mg SULFAMETHOXAZOLE/TRIMETHOPRIM 08/15/2020 12:00:00 AM EDT tablet 30 TAKE ONE TABLET BY MOUTH TWICE A DAY FOR 15 DAYS TAKE ONE TABLET BY MOUTH TWICE A DAY FOR 15 DAYS SOLD: 09/12/2020 [facility] Ibuprofen 800 MG Oral Tablet [Ibu] Ibu 08/15/2020 12:00:00 AM EDT ORAL active [facility] ([facility] ) Sulfamethoxazole 400 MG / Trimethoprim 80 MG Oral Tabl et Sulfamethoxazole-Trimethoprim 08/15/2020 12:00:00 AM EDT active [facility] ([facility] ) 800 mg 08/15/2020 12:00:00 AM EDT tablet 30 TAKE ONE TABLET BY MOUTH THREE TIMES A DAY NEEDED FOR PAIN TAKE ONE TABLET BY MOUTH THREE TIMES A D AY NEEDED FOR PAIN SOLD: 08/16/2020 [facility] 300-60 mg 08/14/2020 12:00:00 AM EDT tablet 60 TAKE ONE TABLET BY MOUTH EVERY 4 HOURS NEEDED FOR PAIN . MAXIMUM DAILY DOSE = 6 TAKE ONE TABLET BY MOUTH EVERY 4 HOURS NEEDED FOR PAIN . MAXIMUM DAILY DOSE = 6 SOLD: 08/27/2020 [facility] 300-60 mg 08/14/2020 12:00:00 AM EDT tablet 60 TAKE ONE TABLET BY MOUTH EVERY 4 HOURS NEEDED FOR PAIN . MAXIMUM DAILY DOSE = 6 TAKE ONE TABLET BY MOUTH EVERY 4 HOURS NEEDED FOR PAIN . MAXIMUM DAILY DOSE = 6 SOLD: 08/14/2020 [facility] 300-60 mg 08/14/2020 12:00:00 AM EDT tablet 60 TAKE ONE TABLET BY MOUTH EVERY 4 HOURS NEEDED FOR PAIN . MAXIMUM DAILY DOSE = 6 TAKE ONE TABLET BY MOUTH EVERY 4 HOURS NEEDED FOR PAIN . MAXIMUM DAILY DOSE = 6 SOLD: 09/12/2020 [facility] 500 mg 08/09/2020 12:00:00 AM EST tablet 20 TAKE ONE TABLET BY MOUTH EVERY 12 HOURS MAXIMUM DAILY DOSE = 2 TABLETS TAKE ONE TABLET BY MOUTH EVERY 12 HOURS MAXIMUM DAILY DOSE = 2 TABLETS SOLD: 08/09/2020 [facility] Cov[facility] vaccine, Unspecified 08/04/2020 12:00:00 AM EST [facility] Medication administered onsite 4 mg 08/01/2020 12:00:00 AM EST tablet 120 TAKE ONE TABLET BY MOUTH FOUR TIMES A DAY NEEDED FOR NAUSEA TAKE ONE TABLET BY MOUTH FOUR TIMES A DA Y NEEDED FOR NAUSEA SOLD: 08/04/2020 [facility] 1 mg 07/31/2020 12:00:00 AM EST tablet 90 TAKE ONE TABLET BY MOUTH THREE TIMES A DAY MAXIMUM DAILY DOSE = 3 TABLETS TAKE ONE TABLET BY MOUTH THREE TIMES A DAY MAXIMUM DAILY DOSE = 3 TABLETS SOLD: 07/31/2020 [facility] 40 mg 07/24/2020 12:00:00 AM EST capsule,delayed release (DR/EC) 180 TAKE 2 CAPSULES BY MOUTH EVERY DAY TAKE 2 CAPSULES BY MOUTH EVERY DAY SOLD: 07/24/2020 [facility] 40 mg 07/24/2020 12:00:00 AM EST capsule,delayed release (DR/EC) 180 TAKE 2 CAPSULES BY MOUTH EVERY DAY TAKE 2 CAPSULES BY MOUTH EVERY DAY SOLD: 10/24/2020 [facility] Rosuvastatin calcium 40 MG Oral Tablet ROSUVASTATIN CALCIUM 07/21/2020 12:00:00 AM EST tablet 90 TAKE ONE TABLET BY MOUTH MENA RY DAY TAKE ONE TABLET BY MOUTH EVERY DAY SOLD: 10/24/2020 [facility] Rosuvastatin calcium 40 MG Oral Tablet ROSUVASTATIN CALCIUM 07/21/2020 12:00:00 AM EST tablet 90 TAKE ONE TABLET BY MOUTH MENA RY DAY TAKE ONE TABLET BY MOUTH EVERY DAY SOLD: 01/15/2021 [facility] 15 mg 07/21/2020 12:00:00 AM EST tablet 60 TAKE 1 TABLET BY MOUTH DAILY WITH FOOD OR DRINK TAKE 1 TABLET BY MOUTH DAILY WITH FOOD OR DRINK SOLD: 2020 [facility] Rosuvastatin calcium 40 MG Oral Tablet ROSUVASTATIN CALCIUM 07/21/2020 12:00:00 AM EST tablet 90 TAKE ONE TABLET BY MOUTH MENA RY DAY TAKE ONE TABLET BY MOUTH EVERY DAY SOLD: 07/24/2020 [facility] 15 mg 07/21/2020 12:00:00 AM EST tablet 60 TAKE 1 TABLET BY MOUTH DAILY WITH FOOD OR DRINK TAKE 1 TABLET BY MOUTH DAILY WITH FOOD OR DRINK SOLD: 2020 [facility] 15 mg 07/21/2020 12:00:00 AM EST tablet 60 TAKE 1 TABLET BY MOUTH DAILY WITH FOOD OR DRINK TAKE 1 TABLET BY MOUTH DAILY WITH FOOD OR DRINK SOLD: 2020 [facility] 150 mg 07/13/2020 12:00:00 AM EST capsule,extended releas e 24hr 30 TAKE ONE CAPSULE BY MOUTH EVERY DAY TAKE ONE CAPSULE BY MOUTH EVERY DAY SOLD: 10/11/2020 [facility] 150 mg 07/13/2020 12:00:00 AM EST capsule,extended releas e 24hr 30 TAKE ONE CAPSULE BY MOUTH EVERY DAY TAKE ONE CAPSULE BY MOUTH EVERY DAY SOLD: 07/16/2020 [facility] 150 mg 07/13/2020 12:00:00 AM EST capsule,extended releas e 24hr 30 TAKE ONE CAPSULE BY MOUTH EVERY DAY TAKE ONE CAPSULE BY MOUTH EVERY DAY SOLD: 11/12/2020 [facility] 150 mg 07/13/2020 12:00:00 AM EST capsule,extended releas e 24hr 30 TAKE ONE CAPSULE BY MOUTH EVERY DAY TAKE ONE CAPSULE BY MOUTH EVERY DAY SOLD: 08/14/2020 [facility] 150 mg 07/13/2020 12:00:00 AM EST capsule,extended releas e 24hr 30 TAKE ONE CAPSULE BY MOUTH EVERY DAY TAKE ONE CAPSULE BY MOUTH EVERY DAY SOLD: 12/11/2020 [facility] 150 mg 07/13/2020 12:00:00 AM EST capsule,extended releas e 24hr 30 TAKE ONE CAPSULE BY MOUTH EVERY DAY TAKE ONE CAPSULE BY MOUTH EVERY DAY SOLD: 09/12/2020 [facility] Acetaminophen 300 MG / Codeine Phosphate 60 MG Oral Tablet [Tylenol with Codeine] Tylenol With Codeine #4 07/06/2020 12:00:00 AM EST active [facility] ([facility]) 1 mg 06/30/2020 12:00:00 AM EST tablet 120 TAKE 1 TABLET [1MG] BY MOUTH FOUR TIMES A DAY MAXIMUM DAILY DOSE = 4 TABLETS TAKE 1 TABLET [1MG] BY MOUTH FOUR TIMES A DAY MAXIMUM DAILY DOSE = 4 TABLETS SOLD: 07/01/2020 [facility] 250 mg 06/23/2020 12:00:00 AM EST tablet 6 TAKE TWO TABLETS BY MOUTH AT ONCE ON THE FIRST DAY THEN TAKE ONE DAILY THEREAFTER TAKE TWO TABLETS BY MOUTH AT ONCE ON THE FIRST DAY THEN TAKE ONE DAILY THEREAFTER SOLD: 06/23/2020 [facility] 250 mg 06/23/2020 12:00:00 AM EST tablet 6 TAKE TWO TABLETS BY MOUTH AT ONCE ON THE FIRST DAY THEN TAKE ONE DAILY THEREAFTER TAKE TWO TABLETS BY MOUTH AT ONCE ON THE FIRST DAY THEN TAKE ONE DAILY THEREAFTER SOLD: 06/29/2020 [facility] 4 mg 06/19/2020 12:00:00 AM EST tablet 120 TAKE ONE TABLET BY MOUTH FOUR TIMES A DAY NEEDED FOR NAUSEA TAKE ONE TABLET BY MOUTH FOUR TIMES A DA Y NEEDED FOR NAUSEA SOLD: 06/19/2020 [facility] Ondansetron 4 MG Oral Tablet [Zofran] Zofran 06/19/2020 12:00:00 AM EST ORAL active [facility] ([facility]) 100 mcg 06/13/2020 12:00:00 AM EST tablet 30 TAKE ONE TABLET BY MOUTH EVERY DAY TAKE ONE TABLET BY MOUTH EVERY DAY SOLD: 06/19/2020 [facility] 25 mg 06/13/2020 12:00:00 AM EST tablet 120 TAKE 1 TABLET [25MG] BY MOUTH FOUR TIMES A DAY MAXIMUM DAILY DOSE = 4 TAKE 1 TABLET [25MG] BY MOUTH FOUR TIMES A DAY MAXIMUM DAILY DOSE = 4 SOLD: 07/10/2020 [facility] 25 mg 06/13/2020 12:00:00 AM EST tablet 120 TAKE 1 TABLET [25MG] BY MOUTH FOUR TIMES A DAY MAXIMUM DAILY DOSE = 4 TAKE 1 TABLET [25MG] BY MOUTH FOUR TIMES A DAY MAXIMUM DAILY DOSE = 4 SOLD: 06/13/2020 [facility] 250 mg 06/13/2020 12:00:00 AM EST tablet 6 TAKE 2 TABLETS [500MG] BY MOUTH ONCE DAILY FOR 1 DAY THEN 1 TABLET [250MG] ONCE DAILY FOR 4 DAYS TAKE 2 TABLETS [500MG] BY MOUTH ONCE DAILY FOR 1 DAY THEN 1 TABLET [250MG] ONCE DAILY FOR 4 DAYS SOLD: 06/19/2020 [facility] 250 mg 06/13/2020 12:00:00 AM EST tablet 6 TAKE 2 TABLETS [500MG] BY MOUTH ONCE DAILY FOR 1 DAY THEN 1 TABLET [250MG] ONCE DAILY FOR 4 DAYS TAKE 2 TABLETS [500MG] BY MOUTH ONCE DAILY FOR 1 DAY THEN 1 TABLET [250MG] ONCE DAILY FOR 4 DAYS SOLD: 06/13/2020 [facility] 100 mcg 06/13/2020 12:00:00 AM EST tablet 30 TAKE ONE TABLET BY MOUTH EVERY DAY TAKE ONE TABLET BY MOUTH EVERY DAY SOLD: 07/24/2020 [facility] 25 mg 06/13/2020 12:00:00 AM EST tablet 120 TAKE 1 TABLET [25MG] BY MOUTH FOUR TIMES A DAY MAXIMUM DAILY DOSE = 4 TAKE 1 TABLET [25MG] BY MOUTH FOUR TIMES A DAY MAXIMUM DAILY DOSE = 4 SOLD: 08/09/2020 [facility] 1 mg 06/05/2020 12:00:00 AM EST tablet 90 TAKE 1 TABLET [1MG] BY MOUTH THREE TIMES A DAY NEEDED MAXIMUM DAILY DOSE = 3 TABLETS TAKE 1 TABLET [1MG] BY MOUTH THREE TIMES A DAY NEEDED MAXIMUM DAILY DOSE = 3 TABLETS SOLD: 06/05/2020 [facility] Cephalexin 500 MG Oral Capsule CEPHALEXIN 05/30/2020 12:00:00 AM EST capsule 14 TAKE ONE CAPSULE BY MOUTH TWICE A DAY FOR 7 DAYS TAKE ONE CAPSULE BY MOUTH TWICE A DAY FOR 7 DAYS SOLD: 05/30/2020 [facility] 200 mg 05/30/2020 12:00:00 AM EST tablet 6 TAKE ONE TABLET BY MOUTH THREE TIMES A DAY FOR 2 DAYS TAKE ONE TABLET BY MOUTH THREE TIMES A DAY FOR 2 DAYS SOLD: 05/30/2020 [facility] Phenazopyridine hydrochloride 200 MG Delayed Release O ral Tablet Phenazopyridine HCL 05/30/2020 12:00:00 AM EST ORAL active [facility] ([facility]) Cephalexin 500 MG Oral Capsule Cephalexin 05/30/2020 12:00:00 AM EST ORAL active [facility] ([facility]) 800-160 mg 05/21/2020 12:00:00 AM EST tablet 10 TAKE ONE TABLET BY MOUTH TWICE A DAY FOR 5 DAYS TAKE ONE TABLET BY MOUTH TWICE A DAY FOR 5 DAYS SOLD: 05/22/2020 [facility] 10 mg 05/16/2020 12:00:00 AM EST capsule 30 TAKE 1 CAPSULE BY MOUTH DAILY AT BEDTIME NEEDED MAX DAILY DOSE = 1 CAPSULE TAKE 1 CAPSULE BY MOUTH DAILY AT BEDTIME NEEDED MAX DAILY DOSE = 1 CAPSULE SOLD: 05/16/2020 [facility] 0.5 mg 05/12/2020 12:00:00 AM EST tablet 90 TAKE ONE TABLET BY MOUTH THREE TIMES A DAY MAXIMUM DAILY DOSE = 3 TABLETS TAKE ONE TABLET BY MOUTH THREE TIMES A DAY MAXIMUM DAILY DOSE = 3 TABLETS SOLD: 05/12/2020 [facility] 250 mg 05/02/2020 12:00:00 AM EST tablet 5 TAKE DIRECTED TAKE DIRECTED SOLD: 05/07/2020 [facility] 250 mg 05/02/2020 12:00:00 AM EST tablet 5 TAKE DIRECTED TAKE DIRECTED SOLD: 05/12/2020 [facility] 250 mg 05/02/2020 12:00:00 AM EST tablet 5 TAKE DIRECTED TAKE DIRECTED SOLD: 05/02/2020 [facility] 100 mg 04/24/2020 12:00:00 AM EST capsule 120 TAKE ONE CAPSULE BY MOUTH THREE TIMES A DAY TAKE ONE CAPSULE BY MOUTH THREE TIMES A DAY SOLD: 04/26/2020 [facility] Magnesium Oxide 500 MG Oral Capsule Magnesium 04/19/2020 12:00:00 AM EST ORAL active [facility] ([facility]) 10 mg 04/14/2020 12:00:00 AM EST tablet 30 TAKE ONE TABLET BY MOUTH AT BEDTIME NEEDED MAXIMUM DAILY DOSE = 10MG 1 TABLET TAKE ONE TABLET BY MOUTH AT BEDTIME NEEDED MAXIMUM DAILY DOSE = 10MG 1 TABLET SOLD: 04/17/2020 [facility] 1 mg 04/14/2020 12:00:00 AM EST tablet 120 TAKE TWO TABLETS BY MOUTH TWICE A DAY MAXIMUM DAILY DOSE = 4 TABLETS TAKE TWO TABLETS BY MOUTH TWICE A DAY MAXIMUM DAILY DOSE = 4 TABLETS SOLD: 04/17/2020 [facility] 100 mcg 04/12/2020 12:00:00 AM EST tablet 30 TAKE ONE TABLET BY MOUTH EVERY DAY TAKE ONE TABLET BY MOUTH EVERY DAY SOLD: 04/17/2020 [facility] 10 mg 04/12/2020 12:00:00 AM EST tablet 60 TAKE ONE TABLET BY MOUTH 30 MINUTES BEFORE MEALS AND AT BEDTIME TAKE ONE TABLET BY MOUTH 30 MINUTES BEFO RE MEALS AND AT BEDTIME SOLD: 05/16/2020 [facility] 100 mcg 04/12/2020 12:00:00 AM EST tablet 30 TAKE ONE TABLET BY MOUTH EVERY DAY TAKE ONE TABLET BY MOUTH EVERY DAY SOLD: 05/16/2020 [facility] 10 mg 04/12/2020 12:00:00 AM EST tablet 60 TAKE ONE TABLET BY MOUTH 30 MINUTES BEFORE MEALS AND AT BEDTIME TAKE ONE TABLET BY MOUTH 30 MINUTES BEFO RE MEALS AND AT BEDTIME SOLD: 04/17/2020 [facility] 10 mg 04/12/2020 12:00:00 AM EST tablet 60 TAKE ONE TABLET BY MOUTH 30 MINUTES BEFORE MEALS AND AT BEDTIME TAKE ONE TABLET BY MOUTH 30 MINUTES BEFO RE MEALS AND AT BEDTIME SOLD: 05/30/2020 [facility] 10 mg 04/12/2020 12:00:00 AM EST tablet 60 TAKE ONE TABLET BY MOUTH 30 MINUTES BEFORE MEALS AND AT BEDTIME TAKE ONE TABLET BY MOUTH 30 MINUTES BEFO RE MEALS AND AT BEDTIME SOLD: 07/31/2020 [facility] 10 mg 04/12/2020 12:00:00 AM EST tablet 60 TAKE ONE TABLET BY MOUTH 30 MINUTES BEFORE MEALS AND AT BEDTIME TAKE ONE TABLET BY MOUTH 30 MINUTES BEFO RE MEALS AND AT BEDTIME SOLD: 05/02/2020 [facility] Metformin hydrochloride 500 MG Oral Tablet METFORMIN HCL 04/04/2020 12:00:00 AM EST tablet 360 TAKE TWO TABLETS BY MOUTH TW ICE A DAY TAKE TWO TABLETS BY MOUTH TWICE A DAY SOLD: 07/10/2020 [facility] 500 mg 04/04/2020 12:00:00 AM EST tablet 360 TAKE TWO TABLETS BY MOUTH TWICE A DAY TAKE TWO TABLETS BY MOUTH TWICE A DAY SOLD: 10/07/2020 [facility] Metformin hydrochloride 500 MG Oral Tablet METFORMIN HCL 04/04/2020 12:00:00 AM EST tablet 360 TAKE TWO TABLETS BY MOUTH TW ICE A DAY TAKE TWO TABLETS BY MOUTH TWICE A DAY SOLD: 04/09/2020 [facility] 1 mg 03/17/2020 12:00:00 AM EDT tablet 120 TAKE TWO TABLETS BY MOUTH TWICE A DAY MAXIMUM DAILY DOSE = 4 TABLETS TAKE TWO TABLETS BY MOUTH TWICE A DAY MAXIMUM DAILY DOSE = 4 TABLETS SOLD: 03/17/2020 [facility] 10 mg 03/16/2020 12:00:00 AM EDT tablet 30 TAKE ONE TABLET BY MOUTH AT BEDTIME NEEDED MAXIMUM DAILY DOSE = 1 TABLET TAKE ONE TABLET BY MOUTH AT BEDTIME NEEDED MAXIMUM DAILY DOSE = 1 TABLET SOLD: 03/17/2020 [facility] 10 mg 03/15/2020 12:00:00 AM EDT tablet 90 TAKE 1 TABLET BY MOUTH EVERY DAY TAKE 1 TABLET BY MOUTH EVERY DAY SOLD: 06/13/2020 [facility] 10 mg 03/15/2020 12:00:00 AM EDT tablet 90 TAKE 1 TABLET BY MOUTH EVERY DAY TAKE 1 TABLET BY MOUTH EVERY DAY SOLD: 03/17/2020 [facility] 250 mg 03/08/2020 12:00:00 AM EDT tablet 6 TAKE BY MOUTH DIRECTED TAKE BY MOUTH DIRECTED SOLD: 03/21/2020 [facility] 250 mg 03/08/2020 12:00:00 AM EDT tablet 6 TAKE BY MOUTH DIRECTED TAKE BY MOUTH DIRECTED SOLD: 03/15/2020 [facility] 250 mg 03/08/2020 12:00:00 AM EDT tablet 6 TAKE BY MOUTH DIRECTED TAKE BY MOUTH DIRECTED SOLD: 03/09/2020 [facility] montelukast 10 MG Oral Tablet MONTELUKAST SODIUM 03/07/2020 12:0 0:00 AM EDT tablet 30 TAKE 1 TABLET BY MOUTH DAILY BEF ORE BEDTIME TAKE 1 TABLET BY MOUTH DAILY BEFORE BEDTIME SOLD: 03/09/2020 [facility] montelukast 10 MG Oral Tablet MONTELUKAST SODIUM 03/07/2020 12:0 0:00 AM EDT tablet 30 TAKE 1 TABLET BY MOUTH DAILY BEF ORE BEDTIME TAKE 1 TABLET BY MOUTH DAILY BEFORE BEDTIME SOLD: 05/07/2020 [facility] montelukast 10 MG Oral Tablet MONTELUKAST SODIUM 03/07/2020 12:0 0:00 AM EDT tablet 30 TAKE 1 TABLET BY MOUTH DAILY BEF ORE BEDTIME TAKE 1 TABLET BY MOUTH DAILY BEFORE BEDTIME SOLD: 04/09/2020 [facility] 20 mg 02/29/2020 12:00:00 AM EDT tablet 90 TAKE 1 TO 2 TABLETS BY MOUTH ONCE DAILY DIRECTED TAKE 1 TO 2 TABLETS BY MOUTH ONCE DAILY DIRECTED SO LD: 03/02/2020 [facility] 100 mcg 02/12/2020 12:00:00 AM EDT tablet 30 TAKE ONE TABLET BY MOUTH EVERY DAY TAKE ONE TABLET BY MOUTH EVERY DAY SOLD: 03/15/2020 [facility] 100 mg 01/28/2020 12:00:00 AM EDT capsule 90 TAKE 1CAP.BY MOUTH AT BEDTIME X 1 WEEK;1CAP 2X/DAY X 1 WEEK;1CAP 3X/DAY THEREAFTER TAKE 1CAP.BY MOUTH AT BEDTIME X 1 WEEK;1CAP 2X/DAY X 1 WEEK;1CAP 3X/DAY THEREAFTER SOLD: 02/28/2020 [facility] 100 mg 01/28/2020 12:00:00 AM EDT capsule 90 TAKE 1CAP.BY MOUTH AT BEDTIME X 1 WEEK;1CAP 2X/DAY X 1 WEEK;1CAP 3X/DAY THEREAFTER TAKE 1CAP.BY MOUTH AT BEDTIME X 1 WEEK;1CAP 2X/DAY X 1 WEEK;1CAP 3X/DAY THEREAFTER SOLD: 03/27/2020 [facility] 15 mg 01/26/2020 12:00:00 AM EDT tablet 60 TAKE 1 TABLET BY MOUTH DAILY WITH FOOD OR DRINK TAKE 1 TABLET BY MOUTH DAILY WITH FOOD OR DRINK SOLD: 2019 [facility] 40 mg 01/26/2020 12:00:00 AM EDT capsule,delayed release (DR/EC) 180 TAKE 2 CAPSULES BY MOUTH EVERY DAY TAKE 2 CAPSULES BY MOUTH EVERY DAY SOLD: 04/26/2020 [facility] 15 mg 01/26/2020 12:00:00 AM EDT tablet 60 TAKE 1 TABLET BY MOUTH DAILY WITH FOOD OR DRINK TAKE 1 TABLET BY MOUTH DAILY WITH FOOD OR DRINK SOLD: 2019 [facility] 10 mg 01/20/2020 12:00:00 AM EDT tablet 60 TAKE ONE TABLET BY MOUTH 30 MINUTES BEFORE MEALS AND AT BEDTIME TAKE ONE TABLET BY MOUTH 30 MINUTES BEFO RE MEALS AND AT BEDTIME SOLD: 02/28/2020 [facility] 10 mg 01/20/2020 12:00:00 AM EDT tablet 60 TAKE ONE TABLET BY MOUTH 30 MINUTES BEFORE MEALS AND AT BEDTIME TAKE ONE TABLET BY MOUTH 30 MINUTES BEFO RE MEALS AND AT BEDTIME SOLD: 03/30/2020 [facility] 10 mg 01/20/2020 12:00:00 AM EDT tablet 60 TAKE ONE TABLET BY MOUTH 30 MINUTES BEFORE MEALS AND AT BEDTIME TAKE ONE TABLET BY MOUTH 30 MINUTES BEFO RE MEALS AND AT BEDTIME SOLD: 03/15/2020 [facility] 75 mg 01/18/2020 12:00:00 AM EDT capsule,extended releas e 24hr 90 TAKE THREE CAPSULES BY MOUTH EVERY DAY MAXIMUM DAILY DOSE =3 TAKE THREE CAPSULES BY MOUTH EVERY DAY MAXIMUM DAILY DOSE =3 SOLD: 06/13/2020 [facility] 75 mg 01/18/2020 12:00:00 AM EDT capsule,extended releas e 24hr 90 TAKE THREE CAPSULES BY MOUTH EVERY DAY MAXIMUM DAILY DOSE =3 TAKE THREE CAPSULES BY MOUTH EVERY DAY MAXIMUM DAILY DOSE =3 SOLD: 03/15/2020 [facility] 75 mg 01/18/2020 12:00:00 AM EDT capsule,extended releas e 24hr 90 TAKE THREE CAPSULES BY MOUTH EVERY DAY MAXIMUM DAILY DOSE =3 TAKE THREE CAPSULES BY MOUTH EVERY DAY MAXIMUM DAILY DOSE =3 SOLD: 05/16/2020 [facility] 75 mg 01/18/2020 12:00:00 AM EDT capsule,extended releas e 24hr 90 TAKE THREE CAPSULES BY MOUTH EVERY DAY MAXIMUM DAILY DOSE =3 TAKE THREE CAPSULES BY MOUTH EVERY DAY MAXIMUM DAILY DOSE =3 SOLD: 04/17/2020 [facility] 5 mg 11/13/2019 12:00:00 AM EDT tablet 60 TAKE ONE TABLET BY MOUTH TWICE A DAY MAXIMUM DAILY DOSE = 2 TAKE ONE TABLET BY MOUTH TWICE A DAY MAX IMUM DAILY DOSE = 2 SOLD: 03/15/2020 [facility] BLOOD SUGAR DIAGNOSTIC 10/28/2019 12:00:00 AM EDT strip 200 USE TWO TIMES A DAY OR DIRECTED USE TWO TIMES A DAY OR DIRECTED SOLD: 04/17/2020 [facility] Rosuvastatin calcium 40 MG Oral Tablet ROSUVASTATIN CALCIUM 08/04/2019 12:00:00 AM EST tablet 30 TAKE ONE TABLET BY MOUTH MENA RY DAY TAKE ONE TABLET BY MOUTH EVERY DAY SOLD: 03/27/2020 [facility] Rosuvastatin calcium 40 MG Oral Tablet ROSUVASTATIN CALCIUM 08/04/2019 12:00:00 AM EST tablet 30 TAKE ONE TABLET BY MOUTH MENA RY DAY TAKE ONE TABLET BY MOUTH EVERY DAY SOLD: 05/24/2020 [facility] Rosuvastatin calcium 40 MG Oral Tablet ROSUVASTATIN CALCIUM 08/04/2019 12:00:00 AM EST tablet 30 TAKE ONE TABLET BY MOUTH MENA RY DAY TAKE ONE TABLET BY MOUTH EVERY DAY SOLD: 02/28/2020 [facility] Rosuvastatin calcium 40 MG Oral Tablet ROSUVASTATIN CALCIUM 08/04/2019 12:00:00 AM EST tablet 30 TAKE ONE TABLET BY MOUTH MENA RY DAY TAKE ONE TABLET BY MOUTH EVERY DAY SOLD: 06/23/2020 [facility] Rosuvastatin calcium 40 MG Oral Tablet ROSUVASTATIN CALCIUM 08/04/2019 12:00:00 AM EST tablet 30 TAKE ONE TABLET BY MOUTH MENA RY DAY TAKE ONE TABLET BY MOUTH EVERY DAY SOLD: 04/26/2020 [facility] 33 gauge 07/20/2019 12:00:00 AM EST misc 200 TEST TWICE A DAY TEST TWICE A DAY SOLD: 07/10/2020 [facility] 33 gauge 07/20/2019 12:00:00 AM EST misc 200 TEST TWICE A DAY TEST TWICE A DAY SOLD: 04/12/2020 [facility] Clonazepam 1 MG Oral Tablet clonazepam (KLONOPIN) 1 MG tablet clonazepam (KLONOPIN) 1 MG tablet 2 mg Oral aborted Take 2 mg by mouth Three times daily as needed for Anxiety. [facility] Insurance Providers Payer name Policy type / Coverage type Policy ID Covered alliance party ID Covered alliance party's relationship to mcgrath Policy [place] Plan Information MEDICARE A [id number] Self [id number] MEDICARE A [id number] Self [id number] A MEDICARE [id number] [place] [id number] A Medicare Natl Gov[place] Serv[employer] Medicare Primary [id number] Self [id number] Medicare [place] [employer] Medicare Primary [id number] Self [id number] Medicare [place] [employer]ic Medicare Primary [id number] Self [id number] Medicare [place] Servic Medicare Primary [id number] 2.16.840.1.539602.3.227.99.4595.09271.0 Self [id number] [place] [id number] 2.16.840.1.777904.3.227.99.991.84734.0 Self [id number] Medicare Natl Govt Serv Medicare Primary [id number] 2.16.840.1.227825.3.227.99.4595.19409.0 Self [id number] [place] Primary [id number] 2.16.840.1.847502.3.227.99.991.57911.0 Self [id number] Medicare [place] Gov[place] Servic Medicare Primary [id number] 2.16.840.1.780805.3.227.99.4595.73097.0 Self [id number] Medicare [place] Medicare Primary [id number] 2.16840.1.200029.3.227.99.4595.17577.0 Self [id number] [place] [id number] 2.16.840.1.307468.3.227.99.991.15417.0 Self [id number] Medicare [place] [employer] [employer] Medicare Primary [id number] 2.16.840.1.247741.3.227.99.4595.21545.0 Self [id number] [place] [id number] 2.16.840.1.407252.3.227.99.991.29944.0 Self [id number] [place] Primary [id number] 2.16.840.1.733867.3.227.99.991.35543.0 Self 0 [id number] [place] Primary [id number] Self Medicare Nat[place] Govt Servic Medicare Primary [id number] 2.16.840.1.927139.3.227.99.4595.06459.0 Self [id number] Medicare [place] [employer] Medicare Primary [id number] 2.16.840.1.233393.3.227.99.4595.18705.0 Self [id number] [place] Medicare Primary [id number] 2.16.840.1.416440.3.227.99.991.20816.0 Self [id number] Medicare [place] [employer]ic Medicare Primary [id number] Self [id number] Medicare [place] [employer] Medicare Primary [id number] 2.840.1.934727.3.227.99.4595.59192.0 Self [id number] [place] Primary [id number] 2.840.1.199759.3.227.99.991.10128.0 Self 0 [id number] MEDICARE [id number] SP [id number] A [place] Medicare Primary [id number] 2.840.1.328644.3.227.99.991.37966.0 Self 0 [id number] Medicare [place] [employer] Medicare Primary [id number] 2.840.1.785875.3.227.99.4595.31443.0 Self [id number] Medicare [place] [employer] Medicare Primary [id number] 2.840.1.889401.3.227.99.4595.09674.0 Self [id number] [place] Primary [id number] 2.840.1.428238.3.227.99.991.50984.0 Self 0 [id number] Medicare [place] [employer]t Servic Medicare Primary [id number] 2.840.1.880572.3.227.99.4595.75862.0 Self [id number] [place] Medicare Primary [id number] 2.840.1.135205.3.227.99.991.01122.0 Self [id number] Medicare Nat[place] Govt Servic Medicare Primary [id number] 2.16.840.1.778183.3.227.99.4595.77989.0 Self [id number] Medicare [place] [employer] Medicare Primary [id number] 2.16.840.1.816847.3.227.99.4595.76974.0 Self [id number] Medicare [place] [employer]t Servic Medicare Primary [id number] 2.16.840.1.263417.3.227.99.4595.40647.0 Self [id number] [place] Primary [id number] 2.16.840.1.856076.3.227.99.991.61646.0 Self [id number] Medicare Natl Govt Servic Medicare Primary [id number] 2.16840.1.958105.3.227.99.4595.78430.0 Self [id number] Medicare Nat[place] Govt Servic Medicare Primary [id number] 2.16840.1.214672.3.227.99.4595.93651.0 Self [id number] Medicare [place] [employer] Servic Medicare Primary [id number] 2.16840.1.554434.3.227.99.4595.91118.0 Self [id number] [place] Primary [id number] 2.16840.1.183227.3.227.99.991.66529.0 Self [id number] Medicare Natl Govt Servic Medicare Primary [id number] 2.16.840.1.281731.3.227.99.4595.81413.0 Self [id number] Medicare Natl Govt Servic Medicare Primary [id number] 2.16.840.1.418105.3.227.99.4595.30452.0 Self [id number] Medicare Natl Govt Servic Medicare Primary [id number] 2.16.840.1.296044.3.227.99.4595.05195.0 Self [id number] Medicare Natl [employer]t Servic Medicare Primary [id number] 2.16.840.1.337420.3.227.99.4595.04527.0 Self [id number] Medicare Natl Govt Servic Medicare Primary [id number] 2.16.840.1.153253.3.227.99.4595.84140.0 Self [id number] [place] Medicare Primary [id number] 2.16.840.1.518413.3.227.99.991.12338.0 Self [id number] [place] Medicare Primary [id number] 2.16.840.1.174621.3.227.99.991.67523.0 Self 0 [id number] Medicare Natl Govt Servic Medicare Primary [id number] 2.16840.1.677802.3.227.99.4595.32343.0 Self [id number] MEDICARE [id number] SP [id number] Medicare Natl Govt Servic Medicare Primary [id number] 2.16840.1.592377.3.227.99.4595.75036.0 Self [id number] Medicare Natl Govt Servic Medicare Primary [id number] 2.16840.1.803034.3.227.99.4595.45197.0 Self [id number] Medicare [place] [employer]t Servic Medicare Primary [id number] 2.16840.1.474466.3.227.99.4595.84190.0 Self [id number] [place] Medicare Primary [id number] Self Medicare Natl Govt Servic Medicare Primary [id number] 2.16840.1.198711.3.227.99.4595.18376.0 Self [id number] [place] Medicare Primary [id number] 2.16840.1.994111.3.227.99.991.25259.0 Self 0 [id number] Medicare Natl Govt Servic Medicare Primary [id number] 2.16840.1.919477.3.227.99.4595.03493.0 Self [id number] Medicare [place] [employer]t Servic Medicare Primary [id number] Self [id number] [place] Medicare Primary [id number] 2.16.840.1.967276.3.227.99.991.03067.0 Self 0 [id number] Medicare Natl Govt Servic Medicare Primary [id number] 2.16.840.1.624565.3.227.99.4595.59289.0 Self [id number] [place] [employer] Commercial [id number] 2.16.840.1.436976.3.227.99.4595.63388.0 Family Dependent [id number] [place] [employer] Medigap Part B [id number] 2.840.1.846131.3.227.99.4595.16180.0 Family Dependent [id number] [place] [employer] Commercial [id number] 2.16.840.1.591864.3.227.99.4595.08794.0 Family Dependent [id number] [place] [employer] Commercial [id number] 2.16.840.1.044527.3.227.99.4595.46822.0 Family Dependent [id number] [place] [employer] Medigap Part B [id number] Family Dependent [id number] [place] [employer] Commercial [id number] 2.16.840.1.556221.3.227.99.4595.41809.0 Family Dependent [id number] [place] [employer] Commercial [id number] 2.16840.1.433983.3.227.99.4595.76826.0 Family Dependent [id number] [place] [employer] Medigap Part B [id number] 2.840.1.813477.3.227.99.4595.18002.0 Family Dependent [id number] [place] [employer] Commercial [id number] 2.840.1.962502.3.227.99.4595.34473.0 Family Dependent [id number] [place] [employer] Commercial [id number] 2.840.1.986579.3.227.99.4595.88390.0 Family Dependent [id number] [place] [employer] Commercial [id number] 2.0.1.466674.3.227.99.4595.83600.0 Family Dependent [id number] [place] [employer] Commercial [id number] 2.840.1.736221.3.227.99.4595.26376.0 Family Dependent [id number] [place] [employer] Commercial [id number] 2.0.1.393468.3.227.99.4595.24859.0 Family Dependent [id number] [place] [employer] Medigap Part B [id number] Family Dependent [id number] [place] [employer] Medigap Part B [id number] 2.0.1.380515.3.227.99.4595.20731.0 Family Dependent [id number] [place] [employer] Commercial [id number] 2.840.1.176041.3.227.99.4595.21876.0 Family Dependent [id number] [place] [employer] Commercial [id number] 2.840.1.913543.3.227.99.4595.12443.0 Family Dependent [id number] [place] [employer] Commercial [id number] 2.16.840.1.021955.3.227.99.4595.25800.0 Family Dependent [id number] [place] [employer] Commercial [id number] 2.16840.1.857618.3.227.99.4595.39256.0 Family Dependent [id number] [place] [employer] Commercial [id number] 2.16840.1.796737.3.227.99.4595.75834.0 Family Dependent [id number] [place] [employer] Commercial [id number] 2.16840.1.374073.3.227.99.4595.76682.0 Family Dependent [id number] [place] [employer] Commercial [id number] 2.840.1.616240.3.227.99.4595.69050.0 Family Dependent [id number] [place] [employer] [id number] 2.840.1.527574.3.227.99.4595.28950.0 Family Dependent [id number] [place] [employer] Commercial [id number] 2.840.1.424730.3.227.99.4595.43791.0 Family Dependent [id number] [place] [employer] Medigap Part B [id number] 2.840.1.255407.3.227.99.4595.64413.0 Family Dependent [id number] [place] [employer] Commercial [id number] 2.16840.1.770780.3.227.99.4595.88540.0 Family Dependent [id number] [place] [employer] Commercial [id number] 2.840.1.958443.3.227.99.4595.06949.0 Family Dependent [id number] [employer] [place] [employer] Commercial [id number] 2.840.1.706605.3.227.99.4595.50603.0 Family Dependent [id number] [place] [employer] Commercial [id number] 2.840.1.617883.3.227.99.4595.62078.0 Family Dependent [id number] [place] [employer] Medigap Part B [id number] 2.840.1.257335.3.227.99.4595.66030.0 Family Dependent [id number] [place] [employer] Medigap Part B [id number] 2.840.1.687427.3.227.99.4595.01401.0 Family Dependent [id number] [place] [employer] Medigap Part B [id number] 2.840.1.224652.3.227.99.4595.55160.0 Family Dependent [id number] [employer] [place] [employer] Commercial [id number] 2.0.1.442287.3.227.99.4595.17189.0 Family Dependent [id number] [place] [employer] Commercial [id number] 2.840.1.633290.3.227.99.4595.35556.0 Family Dependent [id number] BS [employer] Medigap Part B [id number] 2.840.1.589737.3.227.99.991.96367.0 Family Dependent Z [id number] BS [employer] Medigap Part B [id number] 2.840.1.568115.3.227.99.991.89828.0 Family Dependent Z [id number] BS [place] B [id number] 2.840.1.401378.3.227.99.991.26002.0 Family Dependent Z [id number] BS [place] B [id number] 2.16.840.1.449440.3.227.99.991.85830.0 Family Dependent Z [id number] BS [place] Part B [id number] 2.16840.1.830811.3.227.99.991.58151.0 Family Dependent Z [id number] BS [place] B [id number] 2.840.1.747030.3.227.99.991.87795.0 Family Dependent Z [id number] BS [place] B [id number] 2.0.1.149171.3.227.99.991.42376.0 Family Dependent Z [id number] BS [place] Part B [id number] 2.0.1.320468.3.227.99.991.42299.0 Family Dependent Z [id number] BS [place] Part B [id number] 2.0.1.847409.3.227.99.991.84929.0 Family Dependent Z [id number] BS [place] Part B [id number] 2.0.1.789255.3.227.99.991.04581.0 Family Dependent Z [id number] BS [place] Part B [id number] 2.840.1.716545.3.227.99.991.16530.0 Family Dependent Z [id number] BS [place] Part B [id number] 2.840.1.055940.3.227.99.991.43968.0 Family Dependent Z [id number] BS [place] Part B [id number] 2.840.1.548197.3.227.99.991.32968.0 Family Dependent Z [id number] BS [place] Part B [id number] Family Dependent BS [place] Part B [id number] 2.16.840.1.166200.3.227.99.991.44516.0 Family Dependent Z [id number] BS [place] Part B [id number] 2.16.840.1.969313.3.227.99.991.28945.0 Family Dependent Z [id number] BS [place] Part B [id number] 2.16.840.1.527099.3.227.99.991.04258.0 Family Dependent Z [id number] EMIRATI PROGRESSIVE [id number] SP [id number] EMIRATI PROGRESSIVE [id number] SP [id number] EMIRATI PROGRESSIVE [id number] SP [id number] EMIRATI PROGRESSIVE FL U [id number] Self [id number] EMIRATI PROGRESSIVE [id number] SP [id number] [place] Progressive (pr) Medigap Part B [id number] 2.16.840.1.908636.3.227.99.991.04405.0 Self 0 [id number] [place] Progressive (pr) Medigap Part B [id number] 2.16.840.1.655356.3.227.99.991.39798.0 Self 0 [id number] [place] Progressive (pr) Medigap Part B [id number] 2.16.840.1.819813.3.227.99.991.90011.0 Self 0 [id number] [place] [employer] Medigap Part B [id number] Self [place] Progressive (pr) Medigap Part B [id number] 2.16.840.1.800479.3.227.99.991.40093.0 Self 0 [id number] [place] Progressive (pr) Medigap Part B [id number] 2.16.840.1.040623.3.227.99.991.52201.0 Self 0 [id number] [place] Progressive (pr) Medigap Part B [id number] 2.16.840.1.156601.3.227.99.991.27343.0 Self 0 [id number] [place] Progressive (pr) Medigap Part B [id number] 2.16.840.1.876902.3.227.99.991.62061.0 Self 0 [id number] [place] Progressive (pr) Medigap Part B [id number] 2.16.840.1.128264.3.227.99.991.17473.0 Self 0 [id number] [place] Progressive (pr) Medigap Part B 2.16.840.1.059701.3.227.99.991.95330.0 Self [place] Progressive (pr) Medigap Part B [id number] 2.16.840.1.208686.3.227.99.991.67751.0 Self 0 [id number] Polish Progressive (pr) Medigap Part B [id number] 2.16.840.1.808618.3.227.99.991.37017.0 Self 0 [id number] Polish Progressive (pr) Medigap Part B [id number] 2.16.840.1.129477.3.227.99.991.87701.0 Self 0 [id number] Polish Progressive (pr) Medigap Part B [id number] 2.16.840.1.571709.3.227.99.991.72349.0 Self 0 [id number] Polish Progressive (pr) Medigap Part B [id number] 2.16.840.1.116518.3.227.99.991.76144.0 Self 0 [id number] Polish Progressive (pr) Medigap Part B [id number] 2.16.840.1.344790.3.227.99.991.84578.0 Self 0 [id number] Polish Progressive (pr) Medigap Part B [id number] 2.16.840.1.888852.3.227.99.991.15817.0 Self 0 [id number] EMIRATI PROGRESSIVE [place] U [id number] Self [id number] COMMERCIAL GENERIC [id number] Ira 0 [id number] Medicare C [id number] SELF [id number] A EMIRATI PROGRESSIVE [place] U [id number] Self [id number] A Polish Progressive Supplemental F [id number] SELF [id number] EMIRATI PROGRESSIVE [id number] S [id number] [place] MEDICARE DIVISION [id number] S [id number] [place] [id number] S [id number] [facility] Health Maintenance [facility] ([facility]) [id number] 9201 [id number] Family Dependent [id number] Polish Progressive Medigap Part B [id number] Self [id number] [facility] Health Maintenance Organization ([facility]) [id number] 9201 [id number] Family Dependent [id number] Polish Progressive Medigap Part B [id number] Self [id number] [facility] Health Maintenance [facility] ([facility]) [id number] 9201 2.0.1.441825.3.227.99.4595.29726.0 Family Dependent [id number] Polish Progressive Medigap Part B [id number] 2.16.840.1.570374.3.227.99.4595.66745.0 Self [id number] [facility] Health Maintenance Organization ([facility]) [id number] 9201 2.16840.1.518087.3.227.99.4595.69024.0 Family Dependent [id number] Polish Progressive Medigap Part B [id number] 2.16840.1.336400.3.227.99.4595.13622.0 Self [id number] Polish Progressive (pr) Medigap Part B [id number] 2.16.840.1.146136.3.227.99.991.50158.0 Self 0 [id number] Medicare Dme Supplies Medigap Part B [id number] 2.16.840.1.041546.3.227.99.991.10963.0 Self 0 [id number] [facility] Health Maintenance Organization (O) [id number] 9201 2.16.840.1.940557.3.227.99.4595.06548.0 Family Dependent [id number] Polish Progressive Medigap Part B [id number] 2.16.840.1.776857.3.227.99.4595.28208.0 Self [id number] Polish Progressive Commercial [id number] 2.16.840.1. 522778.3.227.99.8646.9251.0 Self [id number] Medicare [place] Medicare Primary [id number] 2.16.840.1.024765.3.227.99.8646.9251.0 Self [id number] EMIRATI PROGRESSIVE [id number] S [id number] [place] MEDICARE DIVISION [id number] S [id number] [place] [facility] [id number] S [id number] Polish Progressive Commercial [id number] 2.16.840.1. 144601.3.227.99.8646.9251.0 Self [id number] Medicare [place] Medicare Primary [id number] 2.16.840.1.329352.3.227.99.8646.9251.0 Self 7 [id number] Polish Progressive Commercial [id number] 2.16840.1. 456552.3.227.99.8646.9251.0 Self [id number] Medicare [place] Medicare Primary [id number] 2.16.840.1.601363.3.227.99.8646.9251.0 Self 7 [id number] Polish Progressive Commercial [id number] 2.16840.1. 042308.3.227.99.8646.9251.0 Self [id number] Medicare [place] Medicare Primary [id number] 2.16840.1.303611.3.227.99.8646.9251.0 Self 7 [id number] Medicare Dme Supplies Medigap Part B [id number] 2.16.840.1.457100.3.227.99.991.00016.0 Self 0 [id number] Medicare Dme Supplies Medigap Part B [id number] 2.16.840.1.984943.3.227.99.991.49351.0 Self 0 [id number] Medicare Dme Supplies Medigap Part B [id number] 2.16.840.1.625570.3.227.99.991.03849.0 Self 0 [id number] Polish Progressive Commercial [id number] 2.16.840.1. 180050.3.227.99.8646.9251.0 Self [id number] Medicare [place] Medicare Primary [id number] 2.16.840.1.048457.3.227.99.8646.9251.0 Self 0 [id number] [employer] Maintenance Organization ([employer]) [id number] 9201 2.840.1.488752.3.227.99.4595.26910.0 Family Dependent [id number] Polish Progressive Medigap Part B [id number] 2.840.1.779214.3.227.99.4595.21743.0 Self [id number] Medicare Dme Supplies Medigap Part B [id number] 2.16.840.1.926963.3.227.99.991.39014.0 Self 0 [id number] Polish Progressive Commercial [id number] 2.16840.1. 685966.3.227.99.8646.9251.0 Self [id number] Medicare [place] Medicare Primary [id number] 2.16.840.1.404197.3.227.99.8646.9251.0 Self 0 [id number] [facility] [employer] Maintenance Organization ([employer]) [id number] 9201 2.16840.1.869471.3.227.99.4595.14463.0 Family Dependent [id number] Polish Progressive Medigap Part B [id number] 2.16840.1.704949.3.227.99.4595.74153.0 Self [id number] [facility] Health Maintenance Organization ([facility]) [id number] 9201 2.16840.1.045483.3.227.99.4595.94524.0 Family Dependent [id number] Polish Progressive Medigap Part B [id number] 2.16840.1.073646.3.227.99.4595.00969.0 Self [id number] EMIRATI PROGRESSIVE [id number] SP [id number] MEDICARE C [id number] S [id number] EMIRATI PROGRESSIVE O [id number] S [id number] Medicare Dme Supplies Medigap Part B [id number] 2.840.1.015637.3.227.99.991.00263.0 Self 0 [id number] [facility] Health Maintenance Organization ([facility]) [id number] 9201 2.840.1.032323.3.227.99.4595.78545.0 Family Dependent [id number] Polish Progressive Medigap Part B [id number] 2.0.1.379721.3.227.99.4595.22594.0 Self [id number] MEDICARE C [id number] S [id number] A Medicare Dme Supplies Medigap Part B [id number] 2.840.1.856839.3.227.99.991.67040.0 Self 0 [id number] [facility] Health Maintenance [facility] ([facility]) [id number] 9201 2.840.1.772496.3.227.99.4595.74251.0 Family Dependent [id number] Polish Progressive Medigap Part B [id number] 2.16840.1.351587.3.227.99.4595.44689.0 Self [id number] Polish Progressive Commercial [id number] 2.840.1. 490991.3.227.99.8646.9251.0 Self [id number] Medicare Up[place]/[facility] Medicare Primary [id number] 2.16.840.1.281680.3.227.99.8646.9251.0 Self 0 [id number] [facility] [employer] Health Maintenance Organization (O) [id number] 9201 2.16.840.1.416491.3.227.99.4595.76000.0 Family Dependent [id number] Polish Progressive Medigap Part B [id number] 2.16.840.1.700619.3.227.99.4595.20395.0 Self [id number] [facility] [employer] Health Maintenance Organization (O) [id number] 9201 2.16.840.1.766579.3.227.99.4595.03861.0 Family Dependent [id number] Polish Progressive Medigap Part B [id number] 2.16.840.1.898809.3.227.99.4595.03440.0 Self [id number] [facility] [employer] Health Maintenance Organization (O) [id number] 9201 2.16.840.1.357181.3.227.99.4595.15133.0 Family Dependent [id number] Polish Progressive Medigap Part B [id number] 2.16.840.1.619736.3.227.99.4595.01829.0 Self [id number] [facility] [employer] Health Maintenance Organization (O) [id number] 9201 2.16.840.1.011084.3.227.99.4595.46582.0 Family Dependent [id number] Polish Progressive Medigap Part B [id number] 2.16.840.1.418902.3.227.99.4595.84806.0 Self [id number] Medicare [facility] Medigap Part B [id number] 2.16.840.1.090579.3.227.99.991.10412.0 Self 0 [id number] [facility] [employer] Health Maintenance Organization (O) [id number] 9201 2.16.840.1.392107.3.227.99.4595.53527.0 Family Dependent [id number] Polish Progressive Medigap Part B [id number] 2.16.840.1.053418.3.227.99.4595.63333.0 Self [id number] Polish Progressive Commercial [id number] 2.16.840.1. 722917.3.227.99.8646.9251.0 Self [id number] Medicare [place]/[facility] Medicare Primary [id number] 2.16.840.1.654999.3.227.99.8646.9251.0 Self 0 [id number] Polish Progressive Commercial [id number] 2.16.840.1. 202565.3.227.99.8646.9251.0 Self [id number] Medicare [place]/[facility] Medicare Primary [id number] 2.16.840.1.237979.3.227.99.8646.9251.0 Self 0 [id number] Medicare Dme Supplies Medigap Part B [id number] 2.16840.1.641963.3.227.99.991.47420.0 Self 0 [id number] [employer] Health Maintenance Organization ([employer]) [id number] 9201 2.16840.1.435159.3.227.99.4595.03095.0 Family Dependent [id number] Polish Progressive Medigap Part B [id number] 2.16.840.1.881892.3.227.99.4595.80384.0 Self [id number] [facility] [employer] Health Maintenance Organization ([facility]) [id number] 9201 2.16.840.1.310655.3.227.99.4595.69185.0 Family Dependent [id number] Polish Progressive Medigap Part B [id number] 2.16.840.1.025660.3.227.99.4595.79260.0 Self [id number] Medicare Dme Supplies Medigap Part B [id number] 2.16.840.1.538157.3.227.99.991.24932.0 Self 0 [id number] [employer] Health Maintenance Organization ([facility]) [id number] 9201 2.16.840.1.119449.3.227.99.4595.65139.0 Family Dependent [id number] Polish Progressive Medigap Part B [id number] 2.16.840.1.827498.3.227.99.4595.21824.0 Self [id number] [facility] Health Maintenance Organization ([facility]) [id number] 9201 2.16.840.1.112767.3.227.99.4595.48315.0 Family Dependent [id number] Polish Progressive Medigap Part B [id number] 2.16.840.1.145119.3.227.99.4595.97007.0 Self [id number] [facility] Health Maintenance Organization ([facility]) [id number] 9201 2.16.840.1.318065.3.227.99.4595.03130.0 Family Dependent [id number] Polish Progressive Medigap Part B [id number] 2.16.840.1.670688.3.227.99.4595.90284.0 Self [id number] Medicare Dme Supplies Medigap Part B [id number] 2.16.840.1.855230.3.227.99.991.52081.0 Self 0 [id number] [facility] Health Maintenance Organization ([facility]) [id number] 9201 2.16.840.1.014798.3.227.99.4595.52081.0 Family Dependent [id number] Polish Progressive Medigap Part B [id number] 2.16.840.1.795590.3.227.99.4595.43368.0 Self [id number] Medicare Dme Supplies Medigap Part B [id number] 2.16.840.1.787731.3.227.99.991.49822.0 Self 0 [id number] [facility] Health Maintenance Organization ([facility]) [id number] 9201 2.16.840.1.732974.3.227.99.4595.46000.0 Family Dependent [id number] Polish Progressive Medigap Part B [id number] 2.16.840.1.997796.3.227.99.4595.90221.0 Self [id number] EMIRATI PROGRESSIVE O [id number] S [id number] Medicare Dme Supplies Medigap Part B [id number] 2.16.840.1.187374.3.227.99.991.29834.0 Self 0 [id number] [facility] Health Maintenance Organization ([facility]) [id number] 9201 2.16.840.1.363096.3.227.99.4595.60569.0 Family Dependent [id number] Polish Progressive Medigap Part B [id number] 2.16.840.1.149786.3.227.99.4595.68983.0 Self [id number] Medicare Dme Supplies Medigap Part B [id number] 2.16.840.1.143317.3.227.99.991.83985.0 Self 0 [id number] Medicare Dme Supplies Medigap Part B [id number] 2.16.840.1.941065.3.227.99.991.79325.0 Self 0 [id number] Medicare Dme Supplies Medigap Part B [id number] 2.16.840.1.101867.3.227.99.991.06851.0 Self 0 [id number] [facility] Health Maintenance Organization ([facility]) [id number] 9201 2.16.840.1.207412.3.227.99.4595.47508.0 Family Dependent [id number] Polish Progressive Medigap Part B [id number] 2.16.840.1.342707.3.227.99.4595.81462.0 Self [id number] [facility] Health Maintenance Organization ([facility]) [id number] 9201 2.16.840.1.058462.3.227.99.4595.26250.0 Family Dependent [id number] Polish Progressive Medigap Part B [id number] 2.16.840.1.292342.3.227.99.4595.95244.0 Self [id number] [facility] [employer] Health Maintenance Organization (O) [id number] 9201 2.16.840.1.019177.3.227.99.4595.61381.0 Family Dependent [id number] Polish Progressive Medigap Part B [id number] 2.16.840.1.763060.3.227.99.4595.83250.0 Self [id number] [facility] [employer] Health Maintenance Organization (O) [id number] 9201 2.16.840.1.823344.3.227.99.4595.76689.0 Family Dependent [id number] Polish Progressive Medigap Part B [id number] 2.16.840.1.827394.3.227.99.4595.68151.0 Self [id number] [facility] [employer] Maintenance Organization (O) [id number] 9201 2.16.840.1.939234.3.227.99.4595.81374.0 Family Dependent [id number] Polish Progressive Medigap Part B [id number] 2.16.840.1.554469.3.227.99.4595.78459.0 Self [id number] [facility] [employer] Health Maintenance Organization (O) [id number] 9201 2.16.840.1.952694.3.227.99.4595.53670.0 Family Dependent [id number] Polish Progressive Medigap Part B [id number] 2.16.840.1.138912.3.227.99.4595.04788.0 Self [id number] [facility] [employer] Maintenance Organization (O) [id number] 9201 2.16.840.1.431242.3.227.99.4595.01950.0 Family Dependent [id number] Polish Progressive Medigap Part B [id number] 2.16.840.1.992492.3.227.99.4595.08257.0 Self [id number] [facility] Health Maintenance Organization ([facility]) [id number] 9201 2.16.840.1.248599.3.227.99.4595.51841.0 Family Dependent [id number] Polish Progressive Medigap Part B [id number] 2.16.840.1.070001.3.227.99.4595.43390.0 Self [id number] [facility] Health Maintenance Organization ([facility]) [id number] 9201 2.16.840.1.005809.3.227.99.4595.27179.0 Family Dependent [id number] Polish Progressive Medigap Part B [id number] 2.16.840.1.198602.3.227.99.4595.83139.0 Self [id number] [facility] Health Maintenance Organization ([facility]) [id number] 9201 2.16.840.1.961864.3.227.99.4595.32682.0 Family Dependent [id number] Polish Progressive Medigap Part B [id number] 2.16.840.1.682344.3.227.99.4595.61598.0 Self [id number] [facility] Health Maintenance Organization ([facility]) [id number] 9201 2.16.840.1.910491.3.227.99.4595.25611.0 Family Dependent [id number] Polish Progressive Medigap Part B [id number] 2.16.840.1.175536.3.227.99.4595.18277.0 Self [id number] Polish Progressive Commercial [id number] 2.16.840.1.883207.3.227.99.1037.58338.0 Self [id number] Medicare Part B Medicare Primary [id number] 2.16.840.1.584626.3.227.99.1037.66001.0 Self [id number] Medicare Dme Supplies Medigap Part B [id number] Self Polish Progressive Medigap Part B [id number] Self Medicare [employer]l [employer] Medicare Primary [id number] Self MEDICARE [id number] SP [id number] A Polish Progressive Commercial [id number] Self Medicare [place]/[facility] Medicare Primary [id number] Self [employer] Commercial [id number] Self Medicare Part B Medicare Primary [id number] Self Polish Progressive Commercial [id number] Self Medicare Medicare Primary [id number] Self Polish Progressive Medigap Part B [id number] Self EMIRATI PROGRESSIVE UNAVAILABLE UNAVAILABLE [id number] Problems, Conditions, and Diagnoses Code Display Name Description Problem Type Effective Dates Data Source(s) follow up follow up Diagnosis 04/02/2021 09:31:55 AM ED [facility] follow follow Diagnosis 09/27/2020 08:23:59 AM ED [facility] Surgeries/Procedures Procedure Description Date Indications Data Source(s) OFFICE OUTPATIENT VISIT 15 MINUTES 04/04/2021 12:00:00 AM EDT [facility] ([facility]) ECG ROUTINE ECG W/LEAST 12 LDS W/I&R 02/23/2021 12:00: 00 AM EDT [facility] ([facility]) OFFICE OUTPATIENT VISIT 25 MINUTES 02/23/2021 12:00:00 AM EDT [facility] ([facility]) OFFICE OUTPATIENT VISIT 25 MINUTES 02/07/2021 12:00:00 AM EDT [facility] ([facility]) Diabetic Retinal Eye Exam 01/29/2021 12:00:00 AM EDT [facility] ([facility]) OFFICE OUTPATIENT VISIT 25 MINUTES 10/20/2020 12:00:00 AM EDT [facility] ([facility]) OFFICE OUTPATIENT VISIT 15 MINUTES 10/03/2020 12:00:00 AM EDT [facility] ([facility]) RADIOLOGY REPORT <td>RADIOLOGY REPORT</td><td ></td><td>09/22/2020 11:31 AM EDT</td><td></td><td></td> 09/22/2020 11:31:44 AM EDT [facility] ARTHROCENTESIS ASPIR&/INJECTION MAJOR JT/BURSA 021 12:00:00 AM EST [facility] ([facility]) RADIOLOGY REPORT <td>RADIOLOGY REPORT</td><td ></td><td>06/05/2020 11:01 AM EST</td><td></td><td></td> 06/05/2020 11:01:55 AM EST [facility] Results ID Date Data Source [id number] 04/03/2021 11:29:29 AM EDT [facility] Name Value Range Interpretation Code Description Data Kika rce(s) Supporting Document(s) Progress Note [facility] ASWQCb5eEjGANzAr43/CDYbmNAOes7LzBClhIXn4XWsyMCJwQ9FcLGE7xH0lUOU3QHpIZkNgPzUhYXRu lbm [file] Maria Guadalupe/NA3qt5hC6NbiC4ufyojc/IOzgxar8jiMVkL0zHCdIWTkChzMSxVprmheNdAidmDHngHkEPErDXCYU [file] XVG1pFRmMl2UOopgZXTSQlHsXM7OWRj= ID Date Data Source [id number] 02/23/2021 03:05:00 PM EDT [facility] ([facility]) Name Value Range Interpretation Code Description Data Kika rce(s) Supporting Document(s) Thyrotropin [Units/volume] in Serum or Plasma by Detec tion limit <= 0.05 mIU/L 11.57 uIU/mL 0.36-3.74 [facility] ([facility] ) ID Date Data Source [id number] 02/23/2021 03:05:00 PM EDT [facility] ([facility]) Name Value Range Interpretation Code Description Data Kika rce(s) Supporting Document(s) Glucose [Mass/volume] in Serum or Plasma 104 mg/dL 74-99 [facility] ([facility]) 100-125 mg/dL PRE-DIABETES/FASTING >126 mg/dL DIABETES/FASTING Urea nitrogen [Mass/volume] in Serum or Plasma 20 mg/dL 7-18 [facility] ([facility]) Potassium [Moles/volume] in Serum or Plasma 3.7 meq/L 3.5-5.1 [facility] ([facility]) Creatinine 1.4 mg/dL 0.6-1.3 [facility] ([facility]) Sodium [Moles/volume] in Serum or Plasma 142 meq/L 136-145 [facility] ([facility]) Chloride [Moles/volume] in Serum or Plasma 103 meq/L 98-107 [facility] ([facility]) Carbon dioxide, total [Moles/volume] in Serum or Plasma 34 meq/L 21 -32 [facility] ([facility]) Calcium [Mass/volume] in Serum or Plasma 9.8 mg/dL 8.5-10.1 [facility] ([facility]) Total Bilirubin 0.3 mg/dL 0.2-1.0 [facility] ([facility]) Aspartate aminotransferase [Enzymatic activity/volume] in Serum or Plasma 79 U/L 15-37 [facility] ([facility] ) NOTE: AST,ALT,TSH VERIFIED Alkaline phosphatase isoenzyme [Units/volume] in Serum or Pl asma 57 mg/dL 46-116 [facility] ([facility]) Alanine aminotransferase [Enzymatic activity/volume] in Seru m or Plasma 100 U/L 12-78 [facility] ([facility]) Albumin [Mass/volume] in Serum or Plasma 3.2 g/dL 3.4-5.0 [facility] ([facility]) Proteinase 3 Ab [Units/volume] in Serum 7.2 g/dL 6.4-8.2 [facility] ([facility]) Glomerular filtration rate/1.73 sq M pre dicted among non-blacks [Volume Rate/Area] in Serum or Plasma by Creatinine-based formula (MDRD) 37 mL/min [facility] ([facility]) A/G Ratio 0.80 CALC 1.00-1.90 [facility] ([facility]) Glomerular filtration rate/1.73 sq M pre dicted among blacks [Volume Rate/Area] in Serum or Plasma by Creatinine-based formula (MDRD) 44 mL/min [facility] <content>CHRONIC KIDNEY DISEASE STAGING PER NKF</content>
<content></content>
<content>STAGE I & II GFR >= 60 NORMAL TO MILDLY DECREASED</content>
<content>STAGE III GFR 30-59 MODERATELY DECREASED</content>
<content>STAGE IV GFR 15-29 SEVERELY DECREASED</content>
<content>STAGE V GFR <15 VERY LITTLE GFR LEFT</content>
<content>ESRD GFR <15 ON [employer] BI DEVELOPER</content>
<content></content> ID Date Data Source [id number] 02/23/2021 03:05:00 PM EDT [facility] Name Value Range Interpretation Code Description Data Kika rce(s) Supporting Document(s) Hemoglobin A1c/Hemoglobin.total in Blood 6.5 % [facility] ([facility]) Lab Result Notes: Pre-Diabetes 5.7 - 6.4 % Diabetes = or > 6.5% Glucose mean value [Mass/volume] in Blood Estimated fr om glycated hemoglobin 140 mg/dL 60-110 [facility] ID Date Data Source [id number] 02/23/2021 03:05:00 PM EDT [facility] Name Value Range Interpretation Code Description Data Kika rce(s) Supporting Document(s) Leukocytes [#/volume] in Blood by Automated count 6.1 x10*3/UL 4.1-10 .9 [facility] ([facility]) Erythrocytes [#/volume] in Blood by Automated count 3.90 x10*6/UL 4.2 0-6.30 [facility] ([facility]) Hemoglobin [Mass/volume] in Blood 10.9 g/dL 12.0-18.0 [facility] ([facility]) Hematocrit [Volume Fraction] of Blood by Automated count 33.8 % 3 7.0-51.0 [facility] ([facility]) MCV 86.6 fL 80.0-97.0 [facility] ([facility]) MCH 28.0 pg 26.0-32.0 [facility] ([facility]) MCHC 32.3 g/dL 31.0-38.0 [facility] ([facility]) Erythrocyte distribution width [Ratio] by Automated count 14.8 % 11.6-13.7 [facility] Platelets [#/volume] in Blood by Automated count 241 x10*3/UL 140-440 [facility] ([facility]) MPV 7.0 FL 7.8-11.0 [facility] ([facility]) Lymph % 23.3 % 10.0-58.5 [facility] ([facility]) Mid % 6.5 % 1.7-9.3 [facility] ([facility]) Neut % 70.2 % 37.0-92.0 [facility] ([facility]) Lymph # 1.4 x10*3/UL 0.6-4.1 [facility] ([facility]) Mid # 0.4 x10*3/UL 0.1-0.6 [facility] ([facility]) Neut # 4.3 x10*3/UL 2.0-7.8 [facility] ([facility]) ID Date Data Source [id number] 02/13/2021 03:00:00 PM EDT [facility] ([facility]) Name Value Range Interpretation Code Description Data Kika rce(s) Supporting Document(s) Ferritin [Mass/volume] in Serum or Plasma 16 ng/mL 8-252 [facility] ([facility]) ID Date Data Source [id number] 02/13/2021 03:00:00 PM EDT [facility] ([facility]) Name Value Range Interpretation Code Description Data Kika rce(s) Supporting Document(s) Iron (Fe) 46 ug/dL 50-170 [facility] ([facility]) Total Iron Binding Capacity 451 ug/dL 250-450 IN [facility] ([facility]) Percent Saturation 10.2 % 13.2-45.0 [facility] ([facility]) ID Date Data Source [id number] 02/07/2021 03:18:00 PM EDT [facility] ([facility]) Name Value Range Interpretation Code Description Data Kika rce(s) Supporting Document(s) C reactive protein [Mass/volume] in Serum or Plasma by High sensitivity method Laboratory test result 0.00-0.30 [facility] ([facility]) ID Date Data Source [id number] 02/07/2021 03:17:00 PM EDT [facility] ([facility]) Name Value Range Interpretation Code Description Data Kika rce(s) Supporting Document(s) Glucose [Mass/volume] in Serum or Plasma 156 mg/dL 74-99 [facility] ([facility]) 100-125 mg/dL PRE-DIABETES/FASTING >126 mg/dL DIABETES/FASTING Urea nitrogen [Mass/volume] in Serum or Plasma 22 mg/dL 7-18 [facility] [facility] Creatinine 1.5 mg/dL 0.6-1.3 [facility] ([facility]) Sodium [Moles/volume] in Serum or Plasma 143 meq/L 136-145 [facility] ([facility]) Chloride [Moles/volume] in Serum or Plasma 105 meq/L 98-107 [facility] ([facility]) Carbon dioxide, total [Moles/volume] in Serum or Plasma 33 meq/L 21 -32 [facility] ([facility]) Potassium [Moles/volume] in Serum or Plasma 4.2 meq/L 3.5-5.1 [facility] ([facility]) Total Bilirubin 0.4 mg/dL 0.2-1.0 [facility] ([facility]) Calcium [Mass/volume] in Serum or Plasma 9.5 mg/dL 8.5-10.1 [facility] ([facility]) Alkaline phosphatase isoenzyme [Units/volume] in Serum or Pl asma 50 mg/dL 46-116 [facility] ([facility]) Albumin [Mass/volume] in Serum or Plasma 3.3 g/dL 3.4-5.0 [facility] ([facility]) Alanine aminotransferase [Enzymatic activity/volume] in Seru m or Plasma 51 U/L 12-78 [facility] ([facility]) Aspartate aminotransferase [Enzymatic activity/volume] in Serum or Plasma 49 U/L 15-37 [facility] ([facility] ) A/G Ratio 0.85 CALC 1.00-1.90 [facility] Glomerular filtration rate/1.73 sq M pre dicted among non-blacks [Volume Rate/Area] in Serum or Plasma by Creatinine-based formula (MDRD) 34 mL/min [facility] ([facility]) Proteinase 3 Ab [Units/volume] in Serum 7.2 g/dL 6.4-8.2 [facility] Glomerular filtration rate/1.73 sq M pre dicted among blacks [Volume Rate/Area] in Serum or Plasma by Creatinine-based formula (MDRD) 41 mL/min [facility] <content>CHRONIC KIDNEY DISEASE STAGING PER NKF</content>
<content></content>
<content>STAGE I & II GFR >= 60 NORMAL TO MILDLY DECREASED</content>
<content>STAGE III GFR 30-59 MODERATELY DECREASED</content>
<content>STAGE IV GFR 15-29 SEVERELY DECREASED</content>
<content>STAGE V GFR <15 VERY LITTLE GFR LEFT</content>
<content>ESRD GFR <15 ON [employer]</content>
<content></content> ID Date Data Source [id number] 02/07/2021 03:17:00 PM EDT [facility] Name Value Range Interpretation Code Description Data Kika rce(s) Supporting Document(s) Erythrocyte sedimentation rate by Westergren method 31 mm/hr 0-15 [facility] ID Date Data Source [id number] 02/07/2021 03:17:00 PM EDT [facility] Name Value Range Interpretation Code Description Data Kika rce(s) Supporting Document(s) Leukocytes [#/volume] in Blood by Automated count 4.7 x10*3/UL 4.1-10 .9 [facility] Hemoglobin [Mass/volume] in Blood 10.7 g/dL 12.0-18.0 [facility] ([facility]) NOTE: RESULT VERIFIED. Erythrocytes [#/volume] in Blood by Automated count 3.80 x10*6/UL 4.2 0-6.30 [facility] ([facility]) MCV 86.7 fL 80.0-97.0 [facility] ([facility]) Hematocrit [Volume Fraction] of Blood by Automated count 33.0 % 3 7.0-51.0 [facility] ([facility]) MCH 28.3 pg 26.0-32.0 [facility] ([facility]) Erythrocyte distribution width [Ratio] by Automated count 14.4 % 11.6-13.7 [facility] MCHC 32.6 g/dL 31.0-38.0 [facility] ([facility]) Platelets [#/volume] in Blood by Automated count 250 x10*3/UL 140-440 [facility] MPV 7.5 FL 7.8-11.0 [facility] ([facility]) Lymph % 24.7 % 10.0-58.5 [facility] ([facility]) Lymph # 1.1 x10*3/UL 0.6-4.1 [facility] ([facility]) Neut % 67.7 % 37.0-92.0 [facility] ([facility]) Mid % 7.6 % 1.7-9.3 [facility] ([facility]) Neut # 3.1 x10*3/UL 2.0-7.8 [facility] ([facility]) Mid # 0.5 x10*3/UL 0.1-0.6 [facility] ([facility]) ID Date Data Source [id number] 10/20/2020 03:27:00 PM EDT [facility] ([facility]) Name Value Range Interpretation Code Description Data Kika rce(s) Supporting Document(s) Microalbumin Urine 37.9 mg/L 1.3-20.0 [facility] ([facility]) Microalb/Creat Ratio 109.5 ug/mg 0.0-30.0 [facility] ([facility]) Urine Creatinine 34.6 mg/dL 30.0-125.0 [facility] ([facility]) ID Date Data Source [id number] 10/20/2020 03:27:00 PM EDT [facility] ([facility]) Name Value Range Interpretation Code Description Data Kika rce(s) Supporting Document(s) Thyrotropin [Units/volume] in Serum or Plasma by Detec tion limit <= 0.05 mIU/L 0.54 uIU/mL 0.36-3.74 [facility] ([facility] ) ID Date Data Source [id number] 10/20/2020 03:27:00 PM EDT [facility] ([facility]) Name Value Range Interpretation Code Description Data Kika rce(s) Supporting Document(s) Cholesterol [Mass/volume] in Serum or Plasma 113 mg/dL 131-200 [facility] ([facility]) Triglyceride [Mass/volume] in Serum or Plasma 34 mg/dL 30-150 [facility] ([facility]) Cholesterol in HDL [Mass/volume] in Serum or Plasma 78 mg/dL 35-60 [facility] ([facility]) Cholesterol in LDL [Mass/volume] in Serum or Plasma by calcu lation 28 CALC 50-159 [facility] ([facility]) ID Date Data Source [id number] 10/20/2020 03:27:00 PM EDT [facility] ([facility]) Name Value Range Interpretation Code Description Data Kika rce(s) Supporting Document(s) Glucose mean value [Mass/volume] in Blood Estimated fr om glycated hemoglobin 143 mg/dL 60-110 [facility] ([facility] ) Hemoglobin A1c/Hemoglobin.total in Blood 6.6 % [facility] Lab Result Notes: Pre-Diabetes 5.7 - 6.4 % Diabetes = or > 6.5% ID Date Data Source [id number] 10/05/2020 12:44:02 PM EDT [facility] Name Value Range Interpretation Code Description Data Kika rce(s) Supporting Document(s) Progress Note [facility] IBXJYl6gYsWBZtWe75/HZYreOKJxs1SzJYruLSq4UJiiZFUgE9CiOLR3uO4lZRC4DLpVUmWyUhWcDOE3 lbm [file] DiUzY9GuVdFKZfDE2hTUSHEf4+CJdkpCHgcEmqQWREQrK5PFC5OQzlHMOUYp5J ID Date Data Source [id number] 10/03/2020 09:34:00 AM EDT [facility] ([facility]) Name Value Range Interpretation Code Description Data Kika rce(s) Supporting Document(s) Leukocytes [#/volume] in Blood by Automated count 5.3 x10*3/UL 4.1-10 .9 [facility] ([facility]) Erythrocytes [#/volume] in Blood by Automated count 3.93 x10*6/UL 4.2 0-6.30 [facility] ([facility]) Hemoglobin [Mass/volume] in Blood 12.0 g/dL 12.0-18.0 [facility] ([facility]) MCH 30.6 pg 26.0-32.0 [facility] ([facility]) MCV 93.4 fL 80.0-97.0 [facility] ([facility]) Hematocrit [Volume Fraction] of Blood by Automated count 36.7 % 3 7.0-51.0 [facility] Erythrocyte distribution width [Ratio] by Automated count 13.0 % 11.6-13.7 [facility] MCHC 32.8 g/dL 31.0-38.0 [facility] ([facility]) Platelets [#/volume] in Blood by Automated count 246 x10*3/UL 140-440 [facility] MPV 7.2 FL 7.8-11.0 [facility] ([facility]) Lymph % 25.0 % 10.0-58.5 [facility] ([facility]) Mid % 6.5 % 1.7-9.3 [facility] ([facility]) Neut % 68.5 % 37.0-92.0 [facility] ([facility]) Lymph # 1.3 x10*3/UL 0.6-4.1 [facility] ([facility]) Neut # 3.6 x10*3/UL 2.0-7.8 [facility] ([facility]) Mid # 0.4 x10*3/UL 0.1-0.6 [facility] ([facility]) ID Date Data Source [id number] 10/03/2020 09:34:00 AM EDT [facility] Name Value Range Interpretation Code Description Data Kika rce(s) Supporting Document(s) Glucose [Mass/volume] in Serum or Plasma 205 mg/dL 74-99 [facility] ([facility]) 100-125 mg/dL PRE-DIABETES/FASTING >126 mg/dL DIABETES/FASTING Urea nitrogen [Mass/volume] in Serum or Plasma 22 mg/dL 7-18 [facility] Potassium [Moles/volume] in Serum or Plasma 4.4 meq/L 3.5-5.1 [facility] ([facility]) Creatinine 1.0 mg/dL 0.6-1.3 [facility] ([facility]) Sodium [Moles/volume] in Serum or Plasma 142 meq/L 136-145 [facility] ([facility]) Carbon dioxide, total [Moles/volume] in Serum or Plasma 31 meq/L 21 -32 [facility] ([facility]) Chloride [Moles/volume] in Serum or Plasma 102 meq/L 98-107 [facility] ([facility]) Calcium [Mass/volume] in Serum or Plasma 9.3 mg/dL 8.5-10.1 [facility] ([facility]) Glomerular filtration rate/1.73 sq M pre dicted among blacks [Volume Rate/Area] in Serum or Plasma by Creatinine-based formula (MDRD) Laboratory test result [facility] ([facility]) <content>CHRONIC KIDNEY DISEASE STAGING PER NKF</content>
<content></content>
<content>STAGE I & II GFR >= 60 NORMAL TO MILDLY DECREASED</content>
<content>STAGE III GFR 30-59 MODERATELY DECREASED</content>
<content>STAGE IV GFR 15-29 SEVERELY DECREASED</content>
<content>STAGE V GFR <15 VERY LITTLE GFR LEFT</content>
<content>ESRD GFR <15 ON [employer]</content>
<content></content> Glomerular filtration rate/1.73 sq M pre dicted among non-blacks [Volume Rate/Area] in Serum or Plasma by Creatinine-based formula (MDRD) 54 mL/min [facility] ([facility]) ID Date Data Source [id number] 06/14/2020 08:50:49 AM [facility] Name Value Range Interpretation Code Description Data Kika rce(s) Supporting Document(s) Progress Note [facility] LMIWUs0lGkTSUmBw16/CTGyyHJMnl8HzKMxhZDe1VEytCYHsF8TkPPR2pC7vSTD9IOaDFfQyIzTlHTPi [facility] [file] AgICAgICAgICAgICAgICAgICAgICAgICAgICAgICAgICAgICAgICAgICAgICAgICAgICAgICAgICAgIC AgICAgICAgICANCiAgICAgICAgICAgICAgICAgICAg ICAgICAgICAgICAgICAgICAgICAgICAgICAgICAgICAgICAgICAgICAgICAgICAgICAgICAgICAgICAg ICAgICAgICAgICAgICAgICAgICANCiAgICAgICAgICAgICAgICAgICAgICAgICAgICAgICAgICAgICAg ICAgICAgICAgICAgICAgICAgICAgICAgICAgICAgIC AgICAgICAgICAgICAgICAgICAgICAgICAgICAgICANCiAgICAgICAgICAgICAgICAgICAgICAgICAgIC AgICAgICAgICAgICAgICAgICAgICAgICAgICAgICAgICAgICAgICAgICAgICAgICAgICAgICAgICAgIC AgICAgICAgICAgICANCiAgICAgICAgICAgICAgICAg ICAgICAgICAgICAgICAgICAgICAgICAgICAgICAgICAgICAgICAgICAgICAgICAgICAgICAgICAgICAg ICAgICAgICAgICAgICAgICAgICAgICANCiAgICAgICAgICAgICAgICAgICAgICAgICAgICAgICAgICAg ICAgICAgICAgICAgICAgICAgICAgICAgICAgICAgIC AgICAgICAgICAgICAgICAgICAgICAgICAgICAgICAgICANCiAgICAgICAgICAgICAgICAgICAgICAgIC AgICAgICAgICAgICAgICAgICAgICAgICAgICAgICAgICAgICAgICAgICAgICAgICAgICAgICAgICAgIC AgICAgICAgICAgICAgICANCiAgICAgICAgICAgICAg ICAgICAgICAgICAgICAgICAgICAgICAgICAgICAgICAgICAgICAgICAgICAgICAgICAgICAgICAgICAg ICAgICAgICAgICAgICAgICAgICAgICAgICANCiAgICAgICAgICAgICAgICAgICAgICAgICAgICAgICAg ICAgICAgICAgICAgICAgICAgICAgICAgICAgICAgIC AgICAgICAgICAgICAgICAgICAgICAgICAgICAgICAgICAgICANCiAgICAgICAgICAgICAgICAgICAgIC AgICAgICAgICAgICAgICAgICAgICAgICAgICAgICAgICAgICAgICAgICAgICAgICAgICAgICAgICAgIC AgICAgICAgICAgICAgICAgICANCjw/xXRdH7ewqVGb knR8D0hwCe9XTv9IFQ5dq3JsIQXtKIlploAjGkeUHeBzVSSfCdcHXzs3GLkdUQ1LvRMlQ4DdL6GoKXjp TT8WGLZsLLGbrBPyVDFyOVPpZiX9DQMkQNxzBI2OgYTbQJsyQYAwPEGxLbXaWMZlWLCyEOEkDTHiIJGT JG0PXgCcC0UsfE60JJUYYr0+LNwejjNlNwfUBiE5JF Rxb4VzWDx9MG6SHDGgBagyg9KvKmEwMEAQHZmxKW9QTKY8ARC6FRYdWr2ECWKoF298vyKfOO4MOl6AVs MiJI3xps5BMkVrHGGdNsrKPbb9PDctXX3UhSMgGKkGeu8ekhHwlbHPy1HxecTaqBAQHK8kfbIwHUCRl5 75gKbvGP9ZCOM0HAJyBO6hOEWfUVKoTvDmZZUQJL2S EPZcGLHztTRzUYWjUAZRXI6GDIueXLP4BDXvpnXcgTPcFOozQK3TGHGgprIcJlOhFTEYWTv+Im7YUX0z m6UxXUhkLwLpTD1igm2KAFiHJfVaQ0D5oSUrS9A6TTbeMj9YZJIlFCFoTlNvUZCNIQsvPY8FJR5ylpG0 ZC5IgZMkAKIqNBPxjNTdYLz7E41iiNRkGDqtZC9FJE A+Fozia+Ih9HGQDsWMWmOLIeQuVnNHSENmHcG0VeY2RTi6JwF3ZaBZ22uJpqjkQmYOexSK7ONM2wZIJsBU XRYQ2ZvIHwfG8zbrZxBFFkDTWDLyDlC12tcWEtZEUvPHU6DNNoJa0ECPMuK5DfwmBjwAsiekEoRCPbKO BYGR5PAAbjgcUrtYUjvAgrGS09eTdxMJ6UZe0WNbFn AM4nhi8VdYCmNw0JPOEjZD5ITJBwQBHiMULsRUT0CVIoOcCkZFtmPVWpJDHjBLG3MYBxLOSuBN0AOqGa GERtAzh6PTHfPRFoJXIljt5IPKYwHXQwYMCpBZVjVHBeXXLbJRjqSRYaHKFaTXI9CFAcMSKgCM8ZEnEw DGSgHPJ8YGnkYCIpPLGnid2ZNNMdVNAvNXF3RhEbXA MzDTDwTCpqKMRiHZJ0OoLcEPSlJBLkIR9KWbUmRZOoTXq3CSGaVCNnBLJwjt9TUOTsHWInCDN5QdQcDJ OxIHDrWBskTKFrVRRgPKxyORGkAWByZV2PCmWeZXUlNRZlSoDfWWKcJCRpaw4VXRCuEQEzStTcHQVrTK NdCTGqJWfjHRQyVVJgOjn7OTTbHQBuRV6GSeSdUALf SGU5GKXeIBKiFBSlef1PYETxPNFrDsV6KPEoRMBaOQSlFFiwFZAmDJD6RdD4UKScJLLrIJ1LXaFqGHVv ISY6GbQvRXFlQABmfs7XNILsJYRfORLdRJSqEJCsXMKqNXfsPZNrXMR6UJF4OMXzIDCdFD5BScKfLXKd AiN5FaGwNJGbMCLbrl0ZYSQkMKDjNyl1OvYaEBVbIY ItXFujBGOuZYN1LaNeXDVeEGMzCT0XXgPoSPUjHadzCqudQBSaAPYuhh7KRDKcKYDgSmw8JBTpKUWsYT VuQHjqEGMaDTT4FgU8FNGrGLBeNV7XErJkIDBzEsftHQyiRGDqTASfax8EIMHhIZOmONN3AuSwDLKnOA JxPJf7ynExxZSzFAe6OG9TK6VyfiUyUxeITp9Qy660 SVO3JKTzQl0HE6alKh6tTKSlDAZYZo5CVTg0UYGgVsH3TiXkRaGqHJZ4XYGdHuTmEQZqWdWvCNOcNhZ+ ANsuKBZgKdr1AvKmUPUgCmdqFtVmQoQoWiZ4HcNgJrBqAs6dDPNTWx1+MEiorFCzqWotCJLJVfA8AtCf JHcnFWWFGd6M ID Date Data Source [id number] 05/30/2020 12:00:00 PM [facility] ([facility]) Name Value Range Interpretation Code Description Data Kika rce(s) Supporting Document(s) Bacteria identified in Urine by Culture Laboratory test result [facility] ([facility]) Rx Keflex ID Date Data Source [id number] 05/05/2020 03:58:48 PM [facility] Name Value Range Interpretation Code Description Data Kika rce(s) Supporting Document(s) Progress Note [facility] ZTQKGy5hJpDBUjTj45/CONbsVCClm9XfBMhsBQg2HMmiCGCoA7UwIKX3kC1mXAT8OBhLFhXyXxHuLrH1 lbm [file] AgICAgICAgICAgICAgICAgICAgICAgICAgICAgICAg DNZbEPGmNZIgQCHnOZGqOOSkOJ3TBOMeKMCbVHYpMQFzYQUgADFpHQFkSEIkHXRvEILxWCNkSTYpLVVk ICAgICAgICAgICAgICAgICAgICAgICAgICAgICAgICAgICAgICAgICAgICAgICAgICAgICAgICAgICAg HE4LCNOpHYOrGWYbYTXcRELwCMZrRUViTEYcIMWbNA AgICAgICAgICAgICAgICAgICAgICAgICAgICAgICAgICAgICAgICAgICAgICAgICAgICAgICAgICAgIC YpIZLeNQLaWGUjZT0WSLWtQQGmMEMsGKZuUABcHDMyAKYzTJZlQSFnGXEpKJRgVNDwCXBvTDHrSQRtMG AgICAgICAgICAgICAgICAgICAgICAgICAgICAgICAg UDTpNMPgXQRxBAJnRRTsAAMpCXViSW4SJEAqOZKxSCBqGLReNZBuWRBhULCnMELmEZXxSXMwHWSlVBQx ICAgICAgICAgICAgICAgICAgICAgICAgICAgICAgICAgICAgICAgICAgICAgICAgICAgICAgICAgICAg IPDuLU0HRSZuFTGlUHHiWQEuFFQbJEJyOBEtFSWhPZ AgICAgICAgICAgICAgICAgICAgICAgICAgICAgICAgICAgICAgICAgICAgICAgICAgICAgICAgICAgIC LnCJNbFYJtAJPmCQSnZE1AOYBaRGCmGYYjLPCdNZStZFYrSANrZBBfAKVgHXOxPCAyFQPdTRWtWFOmTI AgICAgICAgICAgICAgICAgICAgICAgICAgICAgICAg RLElSWZbXQDrLFTgOCThXYYdCHFwWWOqIY2ITZUsDDPkXPMsUTRsFOHcRJFyDGKfZBBmPTYqIOSwZWMm ICAgICAgICAgICAgICAgICAgICAgICAgICAgICAgICAgICAgICAgICAgICAgICAgICAgICAgICAgICAg LAXvWNNpIY3BNJUmUPVfXELdYHFwPWGyBYJiOHYdNY AgICAgICAgICAgICAgICAgICAgICAgICAgICAgICAgICAgICAgICAgICAgICAgICAgICAgICAgICAgIC WdWSWwVLRoCQJcECUgRTZgQJ2WESGbNUSjNHYbYZOhQWOdQHTcKDBbKOUxQBAzELFrYUDcUNJbBQPhFL AgICAgICAgICAgICAgICAgICAgICAgICAgICAgICAg TIVrGUIhQKWbNROfIZBrWOQwATAiKYUvYNNeHG0QGJ77vONzz7T1ERCiJQ7qfon/Qb3PPZovrtItpZLh GP9FGsUtRY0nfr9LTiGnMG9ves2TWGoJTkIyW3E1rGZgLOSrBDOVDpGgF91dCZjiOa49HKbxPLMrLdRu CUo7Ky8XBcKuE8kpIFInVnV4OMDtUhL9HBGsPzR2OP ClUuDeYGoyLH3Id2HjlMNxUSy+Kf7OKB6yp2BiTAtpTvYeYU2cfj3IHOfSAaTeP7KhnsK0LZF7TFTzOs 1KPEXtEBKtlSCjFSUcKJPWHnDrN9LueS12FYAHTr3+VAsnquYkQphOQpQ9TADln5AgXEf6UW3LBMSrOQ y9hBGxPHWkB5Jra3WtRj10NUAbDlhbTZhbzBJeyVLK WG1lkTdkUWBoZTYlITRdKU4fIFNhPQXgYkTxIDXZXP3RHWDjONDulHKrGTApQIMRTV4KZHkdCXV2YLOq mtDfySLwUOymKM3QPDFtwpPlHpOaOLCLERz+Ld3HDS2ck0KbSCtmKXRyIO8zza7OUSqCWnIrQ5H1eFGf R1W3RPtqDe9VOUEaUZMeDcUsVCGSTFooGU3CWC9jws K4KK1XyDFtGYXfRZNgfXXtURn3V26chKAzIVobUV5PQCK+Fozia+St0UNQZoFAVsTKPoOvHzSBBBBaXbK9 HrS7XJz3CxK2OuTT04yYvetaUvIXqkKL3ELT2eDTYfVITYAQ1ZpWXlqE7vfkJlBqZhGRTNEiFeF62ctM LzPUEfJTYfIVLoYe2SAHVbA3GtvaObhUntmoPuRPTz QFKUOV4EVKiadaGlmRGfmAzySL34qScbPT3EMb0DZzGqNK3tqv4OmIRxGm0LCVTzYu6STEQlXQWgPMBg EDG8JEPuWgPdHNfvMTWtNYNyRSM1IHLrFXYlCO8RWbVnRLGyZyZ9DmAgSLEfWNChgl8NUQDxPFAxMpL1 AVKiEQVzLYXkQSvuQREpIHGhIZH1XEUwNGHiQC6BSp TvJRAoQSZaCYNvSVJoAJIpsa1NRBAeSBVySWS2FwCgVEQaYZFdWZlhBLSxJDJ5CEYgJVBgENNjXW5HEc LrWELdLGdfOPDvZEAgWNConb3HYIEyMYBfGAW4DTTrHFCxTNIgRPqlJFChIJOyIHZ2WINnHTDtYX7BLm NuKIToBEC9IAEwCFGlNBThfz4ZHCRmRNXqRpCmKvSr COYsOGMiSXygLTAeXCOxGTl9LIYvIOLhZG0GBvQnPYUaYQKaJLKhGDLoRYRhqb3ELKWeRAXyAmU3PaJj SZBkXUDgSBneGJIbZWWyIOI2PXIeFBLfLR4EDsYxAHWhEmO0JrZwKTCoHHQbld3DMQInZDXmIMB6WFZn QLFmADRoCKgpVYJdYYB7WTV9RBYeNTQxZO3DPfUnUJ WnMyW0RUuqHYTwFBWfyp0PVWOlPTPmUXkjPLHrHKYzDJUaMVyeUGBfKCJ0UyP6PNDjPIXdGK9RJjWaSY ItZau7NDBhHZVxWVApyi8CCMTzNGLrQrgtAcMbOXDkZFIkSZetKVSbEZH0XWk5ZAHnWMFsUM4XChPmFH kzRULFSxq8ZKkkB2v4FCZwJn9KJ7Jwk1UhUiDlQZBI HLdlBM0tppAsOGDxEf6ML2mHJiatNaVeBqj2ZQJ4DHHsGoPyAoOjZuC1QTWbE1U0LtCfNA1zCUOoIMK2 UNpyCtTzI3B7UODyMsPkDOHuRFEhHflcSTV5YuCbZV8ESp9YKsH5FWL6fFImAy0AKkgyOTvTOyVqKO5D DQo= ID Date Data Source [id number] 04/19/2020 02:48:00 PM EST [facility] ([facility]) Name Value Range Interpretation Code Description Data Kika rce(s) Supporting Document(s) Thyrotropin [Units/volume] in Serum or Plasma by Detec tion limit <= 0.05 mIU/L 0.40 uIU/mL 0.36-3.74 [facility] ([facility] ) ID Date Data Source [id number] 04/19/2020 02:48:00 PM EST [facility] ([facility]) Name Value Range Interpretation Code Description Data Kika rce(s) Supporting Document(s) Triglyceride [Mass/volume] in Serum or Plasma 68 mg/dL 30-150 [facility] ([facility]) Cholesterol [Mass/volume] in Serum or Plasma 103 mg/dL 131-200 [facility] ([facility]) Cholesterol in LDL [Mass/volume] in Serum or Plasma by calcu lation 21 CALC 50-159 [facility] ([facility]) Cholesterol in HDL [Mass/volume] in Serum or Plasma 68 mg/dL 35-60 [facility] ([facility]) ID Date Data Source [id number] 04/19/2020 02:48:00 PM EST [facility] ([facility]) Name Value Range Interpretation Code Description Data Kika rce(s) Supporting Document(s) Glucose [Mass/volume] in Serum or Plasma 99 mg/dL 74-99 [facility] ([facility]) 100-125 mg/dL PRE-DIABETES/FASTING >126 mg/dL DIABETES/FASTING Creatinine 1.2 mg/dL 0.6-1.3 [facility] ([facility]) Urea nitrogen [Mass/volume] in Serum or Plasma 17 mg/dL 7-18 [facility] ([facility]) Sodium [Moles/volume] in Serum or Plasma 143 meq/L 136-145 [facility] ([facility]) Chloride [Moles/volume] in Serum or Plasma 104 meq/L 98-107 [facility] ([facility]) Potassium [Moles/volume] in Serum or Plasma 3.8 meq/L 3.5-5.1 [facility] ([facility]) Calcium [Mass/volume] in Serum or Plasma 9.5 mg/dL 8.5-10.1 [facility] ([facility]) Carbon dioxide, total [Moles/volume] in Serum or Plasma 35 meq/L 21 -32 [facility] ([facility]) Total Bilirubin 0.4 mg/dL 0.2-1.0 [facility] ([facility]) Alkaline phosphatase isoenzyme [Units/volume] in Serum or Pl asma 52 mg/dL 46-116 [facility] ([facility]) Albumin [Mass/volume] in Serum or Plasma 3.8 g/dL 3.4-5.0 [facility] ([facility]) Aspartate aminotransferase [Enzymatic activity/volume] in Serum or Plasma 34 U/L 15-37 [facility] ([facility] ) Alanine aminotransferase [Enzymatic activity/volume] in Seru m or Plasma 38 U/L 12-78 [facility] ([facility]) Proteinase 3 Ab [Units/volume] in Serum 7.1 g/dL 6.4-8.2 [facility] A/G Ratio 1.15 CALC 1.00-1.90 [facility] Glomerular filtration rate/1.73 sq M pre dicted among non-blacks [Volume Rate/Area] in Serum or Plasma by Creatinine-based formula (MDRD) 44 mL/min [facility] Glomerular filtration rate/1.73 sq M pre dicted among blacks [Volume Rate/Area] in Serum or Plasma by Creatinine-based formula (MDRD) 53 mL/min [facility]) <content>CHRONIC KIDNEY DISEASE STAGING PER NKF</content>
<content></content>
<content>STAGE I & II GFR >= 60 NORMAL TO MILDLY DECREASED</content>
<content>STAGE III GFR 30-59 MODERATELY DECREASED</content>
<content>STAGE IV GFR 15-29 SEVERELY DECREASED</content>
<content>STAGE V GFR <15 VERY LITTLE GFR LEFT</content>
<content>ESRD GFR <15 ON [employer]</content>
<content></content> ID Date Data Source [id number] 04/19/2020 02:48:00 PM EST [facility] ([facility]) Name Value Range Interpretation Code Description Data Kika rce(s) Supporting Document(s) Glucose mean value [Mass/volume] in Blood Estimated fr om glycated hemoglobin 140 mg/dL 60-110 [facility] Hemoglobin A1c/Hemoglobin.total in Blood 6.5 % [facility] Lab Result Notes: Pre-Diabetes 5.7 - 6.4 % Diabetes = or > 6.5% ID Date Data Source [id number] 04/19/2020 02:48:00 PM EST [facility] ([facility]) Name Value Range Interpretation Code Description Data Kika rce(s) Supporting Document(s) Erythrocytes [#/volume] in Blood by Automated count 4.14 x10*6/UL 4.2 0-6.30 [facility] ([facility]) Leukocytes [#/volume] in Blood by Automated count 5.2 x10*3/UL 4.1-10 .9 [facility] ([facility]) MCV 91.4 fL 80.0-97.0 [facility] ([facility]) Hemoglobin [Mass/volume] in Blood 12.7 g/dL 12.0-18.0 [facility] ([facility]) Hematocrit [Volume Fraction] of Blood by Automated count 37.8 % 3 7.0-51.0 [facility] ([facility]) MCH 30.8 pg 26.0-32.0 [facility] ([facility]) Platelets [#/volume] in Blood by Automated count 204 x10*3/UL 140-440 [facility] Erythrocyte distribution width [Ratio] by Automated count 13.6 % 11.6-13.7 [facility] ([facility]) MCHC 33.7 g/dL 31.0-38.0 [facility] ([facility]) MPV 7.9 FL 7.8-11.0 [facility] ([facility]) Lymph % 29.0 % 10.0-58.5 [facility] ([facility]) Mid % 8.1 % 1.7-9.3 [facility] ([facility]) Lymph # 1.5 x10*3/UL 0.6-4.1 [facility] ([facility]) Mid # 0.4 x10*3/UL 0.1-0.6 [facility] ([facility]) Neut % 62.9 % 37.0-92.0 [facility] ([facility]) Neut # 3.3 x10*3/UL 2.0-7.8 [facility] ([facility]) ID Date Data Source [id number] 04/19/2020 02:48:00 PM EST [facility] ([facility]) Name Value Range Interpretation Code Description Data Kika rce(s) Supporting Document(s) Hemoglobin A1c/Hemoglobin.total in Blood Laboratory test result [facility] ([facility]) Procedure Social History Code Duration Value Status Description Data Source(s ) Alcohol intake 06/09/2020 12:00:00 AM EST Current non-d mallorie of alcohol (finding) completed Current non-drinker of alcohol (finding) [facility] Tobacco use and exposure 06/09/2020 12:00:00 AM EST Never used co mpleted Never used [facility] Cigarette pack-years 06/09/2020 12:00:00 AM EST UNK completed [facility] Cigarettes smoked current (pack per day) - Reported 06/09/19 12:00:00 AM EST UNK completed [facility] Smoking 06/09/2020 12:00:00 AM EST Current every day smoker co mpleted Current every day smoker [facility] Alcohol intake 05/05/2020 12:00:00 AM EST Current non-d mallorie of alcohol (finding) completed Current non-drinker of alcohol (finding) [facility] Vital Signs ID Date Data Source UNK Name Value Range Interpretation Code Description Data Source(s) Systolic blood pressure 132 mm[Hg] 132 mm[Hg] [facility] ([facility]) Diastolic blood pressure 72 mm[Hg] 72 mm[Hg] [facility] ([facility]) Heart rate 68 /min 68 /min [facility] ([facility]) Body height 62.0 [in_i] 62.0 [in_i] [facility] ([facility]) 5'2" Body weight 104.00 [lb_av] 104.00 [lb_av] [facility] ([facility]) Body mass index (BMI) [Ratio] 19.0 kg/m2 19.0 k g/m2 [facility] [facility]) Body weight 105.00 [lb_av] 105.00 [lb_av] [facility] Body mass index (BMI) [Ratio] 19.2 kg/m2 19.2 k g/m2 [facility] ([facility]) Oxygen saturation in Arterial blood by Pulse oximetry 89 % 89 % [facility] ([facility]) Systolic blood pressure 168 mm[Hg] 168 mm[Hg] [facility]) Heart rate 61 /min 61 /min [facility] Body height 62.0 [in_i] 62.0 [in_i] [facility] ([facility]) 5'2" Diastolic blood pressure 64 mm[Hg] 64 mm[Hg] [facility] ([facility]) Body surface area Derived from formula 1.71 m2 1.71 m2 [facility] ([facility]) Body height 63 [in_i] 63 [in_i] [facility] ([facility]) 5'3" Body weight 150.00 [lb_av] 150.00 [lb_av] [facility] ([facility]) Body mass index (BMI) [Ratio] 26.6 kg/m2 26.6 k g/m2 [facility] ([facility]) Peak body weight 115 [lb_av] 115 [lb_av] [facility] ([facility]) Body weight 68.040 kg 68.040 kg [facility] ([facility]) Diastolic blood pressure 62 mm[Hg] 62 mm[Hg] [facility] ([facility]) Systolic blood pressure 136 mm[Hg] 136 mm[Hg] M [facility] ([facility]) Heart rate 72 /min 72 /min [facility] Body weight 108.38 [lb_av] 108.38 [lb_av] [facility] ([facility]) Body height 62.0 [in_i] 62.0 [in_i] [facility] ([facility]) 5'2" Oxygen saturation in Arterial blood by Pulse oximetry 90 % 90 % [facility] ([facility]) Air Body mass index (BMI) [Ratio] 19.8 kg/m2 19.8 k g/m2 [facility] ([facility]) Heart rate 78 /min 78 /min [facility] ([facility]) Body height 62.0 [in_i] 62.0 [in_i] [facility] ([facility]) 5'2" Body weight 112.00 [lb_av] 112.00 [lb_av] [facility] Oxygen saturation in Arterial blood by Pulse oximetry 89 % 89 % [facility] ([facility]) 95% on 2L at rest Oxygen saturation in Arterial blood by Pulse oximetry --post exerci se 85 % 85 % [facility] ([facility]) 92% on 2L with exercise Body mass index (BMI) [Ratio] 20.5 kg/m2 20.5 k g/m2 [facility] ([facility]) Body height 63 [in_i] 63 [in_i] [facility] ([facility]) 5'3" Body mass index (BMI) [Ratio] 26.9 kg/m2 26.9 k g/m2 [facility] ([facility]) Body weight 152.00 [lb_av] 152.00 [lb_av] [facility]) Peak body weight 115 [lb_av] 115 [lb_av] [facility] ([facility]) Body weight 68.947 kg 68.947 kg [facility] ([facility]) Body surface area Derived from formula 1.72 m2 1.72 m2 [facility] ([facility]) Body temperature 97.3 [degF] 97.3 [degF] [facility] ([facility]) Systolic blood pressure 174 mm[Hg] 174 mm[Hg] [facility] ([facility], [facility]) Diastolic blood pressure 92 mm[Hg] 92 mm[Hg] [facility] ([facility], [facility]) Heart rate 72 /min 72 /min [facility] ([facility], [facility]) Respiratory rate 16 /min 16 /min [facility] ( [facility], [facility]) Oxygen saturation in Arterial blood by Pulse oximetry 93 % 93 % [facility] ([facility], [facility]) Body weight 115.00 [lb_av] 115.00 [lb_av] [facility]) Body height 62 [in_i] 62 [in_i] [facility] ([facility], [facility]) 5'2" Body mass index (BMI) [Ratio] 21.0 kg/m2 21.0 k g/m2 [facility] ([facility], [facility]) Diastolic blood pressure 72 mm[Hg] 72 mm[Hg] [facility] ([facility]) Heart rate 68 /min 68 /min [facility] ([facility]) Body height 62.0 [in_i] 62.0 [in_i] [facility] ([facility]) 5'2" Systolic blood pressure 118 mm[Hg] 118 mm[Hg] M [facility] ([facility]) Body weight 117.00 [lb_av] 117.00 [lb_av] [facility] ([facility]) Body mass index (BMI) [Ratio] 21.4 kg/m2 21.4 k g/m2 [facility] ([facility]) Systolic blood pressure 122 mm[Hg] 122 mm[Hg] [facility]) Diastolic blood pressure 70 mm[Hg] 70 mm[Hg] [facility] ([facility]) Heart rate 71 /min 71 /min [facility] ([facility]) Body height 62.0 [in_i] 62.0 [in_i] [facility] ([facility]) 5'2" Body weight 123.00 [lb_av] 123.00 [lb_av] [facility] ([facility]) Body mass index (BMI) [Ratio] 22.5 kg/m2 22.5 k g/m2 [facility] ([facility]) Body height 63 [in_i] 63 [in_i] [facility] ([facility], ) 5'3" Body weight 149.00 [lb_av] 149.00 [lb_av] [facility] ([facility], ) Body mass index (BMI) [Ratio] 26.4 kg/m2 26.4 k g/m2 [facility] ([facility], ) Peak body weight 115 [lb_av] 115 [lb_av] [facility] ([facility], ) Body weight 67.586 kg 67.586 kg [facility] ([facility], ) Body surface area Derived from formula 1.71 m2 1.71 m2 [facility] ([facility], ) ID Date Data Source [id number] 06/14/2020 08:50:49 AM [facility] Name Value Range Interpretation Code Description Data Source(s) WEIGHT RECORDED 115 lb 115 lb [facility] ID Date Data Source [id number] 05/05/2020 03:58:48 PM [facility] Name Value Range Interpretation Code Description Data Source(s) WEIGHT RECORDED 117 lb 117 lb [facility] Patient Treatment Plan of Care Planned Activity Planned Date Details Description Data Source (s) Clonazepam 1 MG Oral Tablet [facility]
--- OUTSIDE RECORDS SUMMARY | 2021-04-23 18:40 | CCD ---
Author Author [facility] Organization [facility] Address Unknown Phone Unavailable Care Team Providers Care [employer] Driver Name Role Phone Christina Richardson MD Unavailable Unavailable AbrChristina naqvi MD Unavailable Unavailable AbrChristina naqvi MD Unavailable Unavailable Abrdonya B William CORLEY Unavailable Unavailable AbrChristina naqvi [...] Unavailable Unavailable Clarke Puente MD Unavailable Unavailable [place]ke MD Unavailable Unavailable [place] MD Unavailable Unavailable CindiClarke MD Unavailable Unavailable [place] MD Unavailable Unavailable [place] MD Unavailable Unavailable CindiClarke MD Unavailable Unavailable [place] MD Unavailable Unavailable CindiClarke MD Unavailable Unavailable CindiClarke MD Unavailable Unavailable [place] MD Unavailable Unavailable [place] MD Unavailable Unavailable [place] MD Unavailable Unavailable CindiClarke MD Unavailable Unavailable [place] MD Unavailable Unavailable [place] MD Unavailable Unavailable CindiClarke MD Unavailable Unavailable [place] MD Unavailable Unavailable CindiClarke MD Unavailable Unavailable CindiClarke MD Unavailable Unavailable [place] MD Unavailable Unavailable CindiClarke MD Unavailable Unavailable CindiClarke MD Unavailable Unavailable CindiClarke MD Unavailable Unavailable CindiClarke MD Unavailable Unavailable [place] MD Unavailable Unavailable CindiClarke MD Unavailable Unavailable [place] MD Unavailable Unavailable [place] MD Unavailable Unavailable [place] MD Unavailable Unavailable CindiClarke MD Unavailable Unavailable CindiClarke MD Unavailable Unavailable [place] MD Unavailable Unavailable [place] MD Unavailable Unavailable [place] MD Unavailable Unavailable [place] MD Unavailable Unavailable [place] MD Unavailable Unavailable [place] MD Unavailable Unavailable [place] MD Unavailable Unavailable [place] MD Unavailable Unavailable [place] MD Unavailable Unavailable CindiClarke MD Unavailable Unavailable [place] MD Unavailable Unavailable CindiClarke MD Unavailable Unavailable [place] MD Unavailable Unavailable CindiClarke MD Unavailable Unavailable [place] MD Unavailable Unavailable CindiClarke MD Unavailable Unavailable CindiClarke MD Unavailable Unavailable CindiClarke MD Unavailable Unavailable CindiClarke MD Unavailable Unavailable [place] MD Unavailable Unavailable [place] MD Unavailable Unavailable CindiClarke MD Unavailable Unavailable CindiClarke MD Unavailable Unavailable CindiClarke MD Unavailable Unavailable [place]Clarke Gómez MD Unavailable Unavailable Clarke Puente MD Unavailable Unavailable [place]Cl[place]ke duran MD Unavailable Unavailable [place]Clarke duran MD Unavailable Unavailable CindiClarke duran MD Unavailable Unavailable CindiClarke duran MD Unavailable Unavailable [place]Cl[place]ke duran MD Unavailable Unavailable [place] duran MD Unavailable Unavailable CindiClarke duran MD Unavailable Unavailable CindiClarke durna MD Unavailable Unavailable [place] duran MD Unavailable Unavailable [place] duran MD Unavailable Unavailable CindiClarke duran MD Unavailable Unavailable [place] duran MD Unavailable Unavailable CindiClarke duran MD Unavailable Unavailable CindiClarke duran MD Unavailable Unavailable CindiClarke duran MD Unavailable Unavailable CindiClarke duran MD Unavailable Unavailable CindiClarke duran MD Unavailable Unavailable [place] duran MD Unavailable Unavailable CindiClarke duran MD Unavailable Unavailable CindiClarke duran MD Unavailable Unavailable [place]ke duran MD Unavailable Unavailable CindiClarke duran MD Unavailable Unavailable Clarke Puente MD Unavailable Unavailable Clarke Puente MD Unavailable Unavailable Clarke Puente MD Unavailable Unavailable [place]Clarke duran MD Unavailable Unavailable PICKERAL JR, J [...] JOSE PA-C Unavailable Unavailable PICKERAL JR, J OJSE PA-C Unavailable Unavailable PICKERAL JR, J JOSE [...] CORLEY Unavailable Unavailable CindiClarke MD Unavailable Unavailable [place] MD Unavailable Unavailable [place] MD Unavailable Unavailable CindiClarke MD Unavailable Unavailable CindiClarke duran MD Unavailable Unavailable CindiClarke duran MD Unavailable Unavailable CindiClarke MD Unavailable Unavailable CindiClarke duran MD Unavailable Unavailable [place] MD Unavailable Unavailable [place] MD Unavailable Unavailable CindiClarke MD Unavailable Unavailable [place] F Rico CORLEY Unavailable Unavailable [place] F Rico CORLEY Unavailable Unavailable Cindi F Rico CORLEY Unavailable Unavailable [place] F Rico CORLEY Unavailable Unavailable [place] F Rico CORLEY Unavailable Unavailable [place] F Rico CORLEY Unavailable Unavailable CnidiClarke MD Unavailable Unavailable [place] F Rico CORLEY Unavailable Unavailable [place] MD Unavailable Unavailable [place] MD Unavailable Unavailable [place] MD Unavailable Unavailable CindiClarke MD Unavailable Unavailable Cindi F Rico CORLEY Unavailable Unavailable Cindi F Rico CORLEY Unavailable Unavailable [place] MD Unavailable Unavailable [place] MD Unavailable Unavailable [place] MD Unavailable Unavailable CindiClarke MD Unavailable Unavailable CindiClarke MD Unavailable Unavailable [place] MD Unavailable Unavailable [place] MD Unavailable Unavailable [place] MD Unavailable Unavailable [place] MD Unavailable Unavailable [place] MD Unavailable Unavailable [place] MD Unavailable Unavailable CindiClarke MD Unavailable Unavailable CindiClarke MD Unavailable Unavailable [place] MD Unavailable Unavailable [place] MD Unavailable Unavailable [place] MD Unavailable Unavailable CindiClarke MD Unavailable Unavailable [place] MD Unavailable Unavailable CindiClarke MD Unavailable Unavailable [place] MD Unavailable Unavailable CindiClarke MD Unavailable Unavailable [place] MD Unavailable Unavailable [place] MD Unavailable Unavailable [place] MD Unavailable Unavailable CindiClarke MD Unavailable Unavailable [place] MD Unavailable Unavailable [place] MD Unavailable Unavailable CindiClarke MD Unavailable Unavailable CindiClarke MD Unavailable Unavailable [place] MD Unavailable Unavailable CindiClarke MD Unavailable Unavailable CindiClarke MD Unavailable Unavailable [place] MD Unavailable Unavailable [place] MD Unavailable Unavailable [place] duran MD Unavailable Unavailable CindiClarke duran MD Unavailable Unavailable CindiClarke MD Unavailable Unavailable CindiClarke MD Unavailable Unavailable [place] duran MD Unavailable Unavailable CindiClarke MD Unavailable Unavailable [place] duran MD Unavailable Unavailable [place] duran MD Unavailable Unavailable CindiClarke duran MD Unavailable Unavailable CindiClarke MD Unavailable Unavailable [place] MD Unavailable Unavailable CindiClarke MD Unavailable Unavailable CindiClarke MD Unavailable Unavailable [place] MD Unavailable Unavailable CindiClarke MD Unavailable Unavailable [place] MD Unavailable Unavailable CindiClarke MD Unavailable Unavailable CindiClarke MD Unavailable Unavailable CindiClarke MD Unavailable Unavailable CindiClarke MD Unavailable Unavailable [place] MD Unavailable Unavailable CindiClarke MD Unavailable Unavailable [...] J Lety ANP Unavailable Unavailable ISIAH, J Elty ANP Unavailable Unavailable ISIAH, J Lety ANP Unavailable Unavailable ISIAH, J Lety ANP Unavailable Unavailable ISIAH, J Lety ANP Unavailable Unavailable ISIAH, J Lety ANP Unavailable Unavailable ISIAH, J Lety ANP Unavailable Unavailable ISIAH, J Lety ANP Unavailable Unavailable ISIAH, J Lety ANP Unavailable Unavailable ISIAH, J Lety ANP Unavailable Unavailable ISIAH, J Lety ANP Unavailable Unavailable ISIAH, J Lety ANP Unavailable Unavailable [place], Christopher DO Unavailable Unavailable [place], Christopher DO Unavailable Unavailable Cindi, Christopher DO Unavailable Unavailable [place], Christopher DO Unavailable Unavailable Cindi, Christopher DO Unavailable Unavailable [place], Christopher DO Unavailable Unavailable Cindi, Christopher DO Unavailable Unavailable [place], Christopher DO Unavailable Unavailable Cindi, Christopher DO Unavailable Unavailable [place], Christopher DO Unavailable Unavailable Re-disclosure Warning The [...] is protected by Article 27-F of the [facility] Public Health law. If you continue you may have access to information: Regarding HIV / AIDS; Provided by facilities licensed or operated by the [facility] Office of Mental Health; or Provided by the [facility] Office for People With Developmental Disabilities. If such information is present, then the following [facility] mandated warning applies: This information has [...] law may result in a fine or alf sentence or both. A general authorization for [...] Physical Therapy 04/04/2021 03:30:00 PM EDT [facility] ([facility]) Outpatient Attender: ELMIRA Calverterrmartha: Rico Mata-FLAQUITO 04/02/2021 12:00:00 AM EDT - 04/02/2021 04:41:08 PM EDT follow up [facility] follow up Outpatient Attender: Rico Pereira 0 02/23/2021 02:30:00 PM EDT [facility] ([facility] ) Outpatient Attender: Contreras Antony 02/07/2021 02:40:00 PM EDT [facility] ([facility] ) Outpatient Attender: William Lopez/Elvia/Dakotah/Re indl 11/03/2020 01:45:00 PM EDT [facility] ([facility]) Outpatient Attender: Rico Pereira 0 10/20/2020 03:00:00 PM EDT [facility] ([facility] ) Outpatient Attender: Lety Pereira 08/2020 08:40:00 AM EDT [facility] ([facility] ) Outpatient Attender: ELMIRA Calverterrer: Rico Mata-FLAQUITO 09/27/2020 12:00:00 AM EDT - 09/27/2020 03:32:45 PM EDT Malignant neoplasm of middle lobe, bronchus or lung [facility] Malignant neoplasm of middle lobe, bronc hus or lung Outpatient Attender: William Lopez/Elvia/Dakotah/Re indl 08/15/2020 11:15:00 AM EDT [facility] ([facility]) Recurring Patient Attender: Tiffany Cerda RPA-CReferrer: Dang ALMEIDA 07/17/2020 03:38:45 PM EST [facility] [place] Outpatient Attender: ELMIRA MALDONADOeferrer: Rico FRANCIS 06/09/2020 12:00:00 AM EST - 06/09/2020 04:32:24 PM EST follow up [facility] follow up Outpatient Attender: ELMIRA quinones 05/30/2020 02:30:00 PM EST [facility] ([facility] Outpatient Attender: ELMIRA NUR MDReferrer: Rico duran MD [id number] 05/05/2020 12:00:00 AM EST follow up [facility] follow up Outpatient Attender: Rico Pereira 1 06/19/2019 02:00:00 PM EST [facility] ([facility] ) Outpatient Attender: JOSE Pereira 1 01:20:00 PM EDT [facility] ([facility] ) Outpatient Attender: William Lopez/Elvia/Dakotah/Danica indl 03/08/2020 01:00:00 PM EDT [facility] ([facility] ) Immunizations Vaccine Date Status Description Data Source(s) COVID-19 VACCINE Moderna 09/01/2020 12:00:00 AM EDT completed [facility] Vaccine Series Complete: YESThis Data wa s Submitted to [facility] Via [employer]. COVID-19 VACCINE Moderna 08/04/2020 12:00:00 AM EST completed [facility] Vaccine Series Complete: NOThis Data was Submitted to [facility] Via [employer]. pneumococcal polysaccharide PPV23 06/16/2020 02:43:00 PM EST comple alfonso [facility] ([facility]) Medications Medication Brand Name Start Date [...] Sulfate) 12:00:00 AM EDT ORAL completed [facility] ([facility]) Rosuvastatin calcium 40 MG Oral Tablet Rosuvastatin Calcium 02/07/2021 12:00:00 AM EDT ORAL active [facility] ([facility]) 4 mg 01/27/2021 12:00:00 AM EDT [...] Doxycycline Monohydrate 100 MG Oral Capsule Doxycycline [place] hydrate 11/24/2020 12:00:00 AM EDT ORAL completed [facility] ([facility]) 100 mg 11/24/2020 12:00:00 AM EDT [...] Fumarate 12:00:00 AM EDT ORAL active [facility] ([facility]) zaleplon 10 MG Oral Capsule ZALEPLON [...] 10/06/2020 12:00 :00 AM EDT active [facility] ([facility]) 0.05 % 10/03/2020 12:00:00 AM [...] Propionate 10/03/2020 12:00:00 AM EDT active [facility] ([facility]) Trelegy Ellipta Trelegy Ellipta 10/03/2020 12:00:00 AM EDT active [facility] ([facility]) 1 mg 09/28/2020 12:00:00 AM EDT [...] Unspecified 09/01/2020 12:00:00 AM EDT completed [facility]) Medication administered onsite 1 mg [...] 08/15/2020 12:00:00 AM EDT ORAL active [facility] ([facility] ) Sulfamethoxazole 400 MG / Trimethoprim 80 MG Oral Tabl et Sulfamethoxazole-Trimethoprim 08/15/2020 12:00:00 AM EDT active [facility] ([facility], ) 800 mg 08/15/2020 12:00:00 AM EDT [...] DOSE = 2 TABLETS SOLD: 08/09/2020 [employer] Covid-19 vaccine, Unspecified 08/04/2020 12:00:00 AM EST [facility] [facility] Medication administered onsite 4 mg 08/01/2020 12:00:00 [...] #4 07/06/2020 12:00:00 AM EST active [facility] ([facility]) 1 mg 06/30/2020 [...] 06/19/2020 12:00:00 AM EST ORAL active [facility] 100 mcg 06/13/2020 12:00:00 AM EST [...] 05/30/2020 12:00:00 AM EST ORAL active [facility] ([facility]) Cephalexin 500 MG Oral Capsule Cephalexin 05/30/2020 12:00:00 AM EST ORAL active [facility] ([facility]) 800-160 mg 05/21/2020 12:00:00 AM EST tablet [...] 04/19/2020 12:00:00 AM EST ORAL active [facility] ([facility]) 10 mg 04/14/2020 12:00:00 AM EST [...] Three times daily as needed for Anxiety. [facility] Insurance Providers Payer name Policy type / Coverage type Policy ID Covered alliance party ID Covered alliance party's relationship to mcgrath Policy Mcgrath Plan Information MEDICARE A [id number] Self [id number] MEDICARE A [id number] Self [id number] A MEDICARE [id number] Ira [id number] A Medicare Natl Govt Servic Medicare Primary [id number] Self [id number] Medicare Natl Govt Servic Medicare Primary [id number] .[id number] Self [id number] Medicare Natl Govt Servic Medicare Primary [id number] Self [id number] Medicare Natl Govt Servic Medicare Primary [id number] 2.16.840.1.310009.3.227.99.4595.89234.0 Self [id number] [place] [id number] 2.16.840.1.874185.3.227.99.991.51228.0 Self [id number] Medicare Natl Govt Serv Medicare Primary [id number] 2.16.840.1.919915.3.227.99.4595.18649.0 Self [id number] [place] Medicare Primary [id number] 2.16.840.1.315828.3.227.99.991.61747.0 Self [id number] Medicare Natl Govt Servic Medicare Primary [id number] 2.16.840.1.720917.3.227.99.4595.37256.0 Self [id number] Medicare Natl Govt Serv Medicare Primary [id number] 2.16840.1.861929.3.227.99.4595.22033.0 Self [id number] [place] Primary [id number] 2.16.840.1.551392.3.227.99.991.04547.0 Self [id number] Medicare Natl Govt Servic Medicare Primary [id number] 2.16.840.1.613605.3.227.99.4595.39903.0 Self [id number] [place] Primary [id number] 2.16.840.1.306619.3.227.99.991.99392.0 Self [id number] [place] Medicare Primary [id number] 2.16.840.1.730625.3.227.99.991.74751.0 Self 0 [id number] [place] Primary [id number] Self Medicare Natl Govt Servic Medicare Primary [id number] 2.16.840.1.063243.3.227.99.4595.77404.0 Self [id number] Medicare Natl Govt Servic Medicare Primary [id number] 2.16.840.1.437930.3.227.99.4595.98358.0 Self [id number] [place] Medicare Primary [id number] 2.16.840.1.275894.3.227.99.991.07576.0 Self [id number] Medicare Natl Govt Servic Medicare Primary [id number] Self [id number] Medicare Natl Govt Servic Medicare Primary [id number] 2.840.1.945512.3.227.99.4595.64738.0 Self [id number] [place] Medicare Primary [id number] 2.840.1.150174.3.227.99.991.06570.0 Self 0 [id number] MEDICARE [id number] SP [id number] [place] Medicare Primary [id number] 2.840.1.028355.3.227.99.991.66155.0 Self 0 [id number] Medicare Natl Govt Servic Medicare Primary [id number] 2.840.1.391500.3.227.99.4595.95193.0 Self [id number] Medicare Natl Govt Servic Medicare Primary [id number] 2.840.1.189837.3.227.99.4595.72367.0 Self [id number] [place] Primary [id number] 2.840.1.627456.3.227.99.991.51496.0 Self 0 [id number] Medicare Natl Govt Servic Medicare Primary [id number] 2.840.1.513382.3.227.99.4595.87359.0 Self [id number] [place] Medicare Primary [id number] 2.840.1.861640.3.227.99.991.31974.0 Self [id number] Medicare Natl Govt Servic Medicare Primary [id number] 2.16.840.1.366198.3.227.99.4595.17821.0 Self [id number] Medicare Natl Govt Servic Medicare Primary [id number] 2.16.840.1.659646.3.227.99.4595.09279.0 Self [id number] Medicare Natl Govt Servic Medicare Primary [id number] 2.16.840.1.409614.3.227.99.4595.14411.0 Self [id number] [place] Medicare Primary [id number] 2.16.840.1.831810.3.227.99.991.09505.0 Self [id number] Medicare Natl Govt Servic Medicare Primary [id number] 2.16840.1.746310.3.227.99.4595.99444.0 Self [id number] Medicare Natl Govt Servic Medicare Primary [id number] 2.16840.1.212942.3.227.99.4595.72227.0 Self [id number] Medicare Natl Govt Servic Medicare Primary [id number] 2.16840.1.061335.3.227.99.4595.78350.0 Self [id number] [place] Primary [id number] 2.16840.1.641740.3.227.99.991.98436.0 Self 7 [id number] Medicare Natl Govt Servic Medicare Primary [id number] 2.16.840.1.655622.3.227.99.4595.20391.0 Self [id number] Medicare Natl Govt Servic Medicare Primary [id number] 2.16.840.1.974282.3.227.99.4595.15414.0 Self [id number] Medicare Natl Govt Servic Medicare Primary [id number] 2.16.840.1.121004.3.227.99.4595.09627.0 Self [id number] Medicare Natl Govt Servic Medicare Primary [id number] 2.16.840.1.436575.3.227.99.4595.51259.0 Self [id number] Medicare Natl Govt Servic Medicare Primary [id number] 2.16.840.1.268544.3.227.99.4595.10868.0 Self [id number] [place] Medicare Primary [id number] 2.16.840.1.663559.3.227.99.991.84165.0 Self [id number] Medicare [place] Medicare Primary [id number] 2.16.840.1.336600.3.227.99.991.00364.0 Self 0 [id number] Medicare Natl Govt Servic Medicare Primary [id number] 2.16840.1.683502.3.227.99.4595.95328.0 Self [id number] MEDICARE [id number] SP [id number] Medicare Natl Govt Servic Medicare Primary [id number] 2.16840.1.076519.3.227.99.4595.11676.0 Self [id number] Medicare Natl Govt Servic Medicare Primary [id number] 2.16840.1.579934.3.227.99.4595.62767.0 Self [id number] Medicare Natl Govt Servic Medicare Primary [id number] 2.16840.1.416062.3.227.99.4595.99899.0 Self [id number] [place] Medicare Primary [id number] Self Medicare Natl Govt Servic Medicare Primary [id number] 2.16840.1.359917.3.227.99.4595.02185.0 Self [id number] [place] Medicare Primary [id number] 2.16840.1.394774.3.227.99.991.37017.0 Self 0 [id number] Medicare Natl Govt Servic Medicare Primary [id number] 2.16840.1.530025.3.227.99.4595.40672.0 Self [id number] Medicare Natl Govt Servic Medicare Primary [id number] Self [id number] Medicare [place] Medicare Primary [id number] 2.16.840.1.766992.3.227.99.991.96340.0 Self 0 [id number] Medicare Natl Govt Servic Medicare Primary [id number] 2.16.840.1.978815.3.227.99.4595.40991.0 Self [id number] [place] [employer] Commercial [id number] 2.16.840.1.045575.3.227.99.4595.82580.0 Family Dependent [id number] [place] [employer] Medigap Part B [id number] 2.840.1.117319.3.227.99.4595.69158.0 Family Dependent [id number] [place] [employer] Commercial [id number] 2.16.840.1.424004.3.227.99.4595.41264.0 Family Dependent [id number] [place] [employer] Commercial [id number] 2.16.840.1.309190.3.227.99.4595.89262.0 Family Dependent [id number] [place] [employer] Medigap Part B [id number] Family Dependent [id number] [place] [employer] Commercial [id number] 2.16.840.1.624146.3.227.99.4595.53359.0 Family Dependent [id number] [place] [employer] Commercial [id number] 2.16840.1.719216.3.227.99.4595.38996.0 Family Dependent [id number] [place] [employer] Medigap Part B [id number] 2.840.1.931921.3.227.99.4595.04796.0 Family Dependent [id number] [place] [employer] Commercial [id number] 2.840.1.950508.3.227.99.4595.40084.0 Family Dependent [id number] [place] [employer] Commercial [id number] 2.840.1.714130.3.227.99.4595.48470.0 Family Dependent [id number] [place] [employer] Commercial [id number] 2.0.1.070885.3.227.99.4595.06585.0 Family Dependent [id number] [place] [employer] Commercial [id number] 2.840.1.366776.3.227.99.4595.64429.0 Family Dependent [id number] [place] [employer] Commercial [id number] 2.0.1.303691.3.227.99.4595.31279.0 Family Dependent [id number] [place] [employer] Medigap Part B [id number] Family Dependent [id number] [place] [employer] Medigap Part B [id number] 2.0.1.439359.3.227.99.4595.78155.0 Family Dependent [id number] [place] [employer] Commercial [id number] 2.840.1.699547.3.227.99.4595.66459.0 Family Dependent [id number] [place] [employer] Commercial [id number] 2.840.1.032383.3.227.99.4595.30876.0 Family Dependent [id number] [place] [employer] Commercial [id number] 2.16.840.1.811830.3.227.99.4595.05789.0 Family Dependent [id number] [place] [employer] Commercial [id number] 2.16840.1.283986.3.227.99.4595.81385.0 Family Dependent [id number] [place] [employer] Commercial [id number] 2.16840.1.999957.3.227.99.4595.04665.0 Family Dependent [id number] [place] [employer] Commercial [id number] 2.16840.1.968162.3.227.99.4595.81128.0 Family Dependent [id number] [place] [employer] Commercial [id number] 2.840.1.918135.3.227.99.4595.56545.0 Family Dependent [id number] [place] [employer] Commercial [id number] 2.840.1.381177.3.227.99.4595.71831.0 Family Dependent [id number] [place] [employer] Commercial [id number] 2.840.1.616643.3.227.99.4595.09410.0 Family Dependent [id number] [place] [employer] Medigap Part B [id number] 2.840.1.208685.3.227.99.4595.94939.0 Family Dependent [id number] [place] [employer] Commercial [id number] 2.16840.1.952255.3.227.99.4595.22065.0 Family Dependent [id number] [place] [employer] Commercial [id number] 2.840.1.563401.3.227.99.4595.80933.0 Family Dependent [id number] [place] [employer] Commercial [id number] 2.840.1.021176.3.227.99.4595.24466.0 Family Dependent [id number] [place] [employer] Commercial [id number] 2.840.1.784169.3.227.99.4595.97899.0 Family Dependent [id number] [place] [employer] Medigap Part B [id number] 2.840.1.710465.3.227.99.4595.00027.0 Family Dependent [id number] [place] [employer] Medigap Part B [id number] 2.840.1.766286.3.227.99.4595.74206.0 Family Dependent [id number] [place] [employer] Medigap Part B [id number] 2.840.1.561318.3.227.99.4595.74444.0 Family Dependent [id number] [place] [employer]MX Commercial [id number] 2.0.1.496352.3.227.99.4595.91384.0 Family Dependent [id number] [place] [employer] Commercial [id number] 2.840.1.001517.3.227.99.4595.17299.0 Family Dependent [id number] BS [place] Medigap Part B [id number] 2.840.1.152704.3.227.99.991.63328.0 Family Dependent [id number] BS [place] Medigap Part B [id number] 2.840.1.423877.3.227.99.991.58567.0 Family Dependent Z [id number] [place] Medigap Part B [id number] 2.840.1.818399.3.227.99.991.36426.0 Family Dependent Z [id number] [place] Medigap Part B [id number] 2.16.840.1.992192.3.227.99.991.44239.0 Family Dependent Z [id number] [place] Medigap Part B [id number] 2.16840.1.819936.3.227.99.991.43293.0 Family Dependent Z [id number] [place] Medigap Part B [id number] 2.840.1.311583.3.227.99.991.81871.0 Family Dependent Z [id number] [place] Medigap Part B [id number] 2.0.1.792880.3.227.99.991.38085.0 Family Dependent Z [id number] [place] Medigap Part B [id number] 2.0.1.821188.3.227.99.991.47879.0 Family Dependent Z [id number] [place] Medigap Part B [id number] 2.0.1.783782.3.227.99.991.00257.0 Family Dependent Z [id number] [place] Medigap Part B [id number] 2.0.1.969161.3.227.99.991.32606.0 Family Dependent Z [id number] [place] Medigap Part B [id number] 2.840.1.415559.3.227.99.991.39962.0 Family Dependent Z [id number] [place] Medigap Part B [id number] 2.840.1.084095.3.227.99.991.54219.0 Family Dependent Z [id number] [place] Medigap Part B [id number] 2.840.1.006683.3.227.99.991.21076.0 Family Dependent Z [id number] [place] Medigap Part B [id number] Family Dependent [place] Medigap Part B [id number] 2.16.840.1.372180.3.227.99.991.80736.0 Family Dependent Z [id number] [place] Medigap Part B [id number] 2.16.840.1.340588.3.227.99.991.16026.0 Family Dependent Z [id number] [place] Medigap Part B [id number] 2.16.840.1.421019.3.227.99.991.71042.0 Family Dependent Z [id number] GEORGIAN PROGRESSIVE [id number] SP [id number] GEORGIAN PROGRESSIVE [id number] SP [id number] GEORGIAN PROGRESSIVE [id number] SP [id number] GEORGIAN PROGRESSIVE FL U [id number] Self [id number] GEORGIAN PROGRESSIVE [id number] SP [id number] Guyanese Progressive (pr) Medigap Part B [id number] 2.16.840.1.764176.3.227.99.991.30860.0 Self 0 [id number] Guyanese Progressive (pr) Medigap Part B [id number] 2.16.840.1.464788.3.227.99.991.10739.0 Self 0 [id number] Guyanese Progressive (pr) Medigap Part B [id number] 2.16.840.1.747008.3.227.99.991.46776.0 Self 0 [id number] Guyanese Progressive Medigap Part B 848629 Self Guyanese Progressive (pr) Medigap Part B [id number] 2.16.840.1.009746.3.227.99.991.74202.0 Self 0 [id number] Guyanese Progressive (pr) Medigap Part B 942877386 2.16.840.1.505564.3.227.99.991.22747.0 Self 0 [id number] Guyanese Progressive (pr) Medigap Part B [id number] 2.16.840.1.112326.3.227.99.991.42150.0 Self 0 [id number] Guyanese Progressive (pr) Medigap Part B 803045324 2.16.840.1.888139.3.227.99.991.31333.0 Self 0 [id number] Guyanese Progressive (pr) Medigap Part B [id number] 2.16.840.1.924994.3.227.99.991.53374.0 Self 0 [id number] Guyanese Progressive (pr) Medigap Part B 2.16.840.1.364034.3.227.99.991.63036.0 Self Guyanese Progressive (pr) Medigap Part B [id number] 2.16.840.1.707241.3.227.99.991.79091.0 Self 0 [id number] Guyanese Progressive (pr) Medigap Part B 052645090 2.16.840.1.989978.3.227.99.991.66910.0 Self 0 [id number] Guyanese Progressive (pr) Medigap Part B 408068998 2.16.840.1.256948.3.227.99.991.69672.0 Self 0 [id number] Guyanese Progressive (pr) Medigap Part B [id number] 2.16.840.1.408968.3.227.99.991.13944.0 Self 0 [id number] Guyanese Progressive (pr) Medigap Part B 693135720 2.16.840.1.296880.3.227.99.991.35861.0 Self 0 [id number] Guyanese Progressive (pr) Medigap Part B 260956715 2.16.840.1.866229.3.227.99.991.64062.0 Self 0 [id number] Guyanese Progressive (pr) Medigap Part B 869937019 2.16.840.1.900286.3.227.99.991.14397.0 Self 0 [id number] GEORGIAN PROGRESSIVE FL U [id number] Self [id number] COMMERCIAL GENERIC [id number] Ira 0 [id number] Medicare C [id number] SELF [id number] A GEORGIAN PROGRESSIVE FL U [id number] Self [id number] A Guyanese Progressive Supplemental F [id number] SELF [id number] GEORGIAN PROGRESSIVE [id number] S [id number] [place] MEDICARE DIVISION [id number] S [id number] MEDICARE - [place] [id number] S [id number] [facility] Health Maintenance [facility] ([facility]) [id number] 9201 [id number] Family Dependent [id number] Guyanese Progressive Medigap Part B [id number] Self [id number] [facility] Health Maintenance Organization ([facility]) [id number] 9201 MRN.[id number] Family Dependent [id number] Guyanese Progressive Medigap Part B [id number] Self [id number] [facility] Health Maintenance [facility] ([facility]) [id number] 9201 2.0.1.561594.3.227.99.4595.50140.0 Family Dependent [id number] Guyanese Progressive Medigap Part B [id number] 2.16.840.1.677952.3.227.99.4595.01452.0 Self [id number] [facility] Health Maintenance Organization ([facility]) [id number] 9201 2.16840.1.447639.3.227.99.4595.81069.0 Family Dependent [id number] Guyanese Progressive Medigap Part B [id number] 2.16840.1.216400.3.227.99.4595.16567.0 Self [id number] Guyanese Progressive (pr) Medigap Part B 922746874 2.16.840.1.181064.3.227.99.991.70243.0 Self 0 [id number] Medicare Dme Supplies Medigap Part B [id number] 2.16.840.1.054902.3.227.99.991.80320.0 Self 0 [id number] [facility] Health Maintenance Organization (O) [id number] 9201 2.16.840.1.737475.3.227.99.4595.87653.0 Family Dependent [id number] Guyanese Progressive Medigap Part B 352150445 2.16.840.1.017613.3.227.99.4595.07525.0 Self [id number] Guyanese Progressive Commercial [id number] 2.16.840.1. 570289.3.227.99.8646.9251.0 Self [id number] Medicare [place] Medicare Primary [id number] 2.16.840.1.878800.3.227.99.8646.9251.0 Self [id number] GEORGIAN PROGRESSIVE [id number] S [id number] [place] MEDICARE DIVISION [id number] S [id number] [facility] [id number] S [id number] Guyanese Progressive Commercial [id number] 2.16.840.1. 283894.3.227.99.8646.9251.0 Self [id number] Medicare [place] Medicare Primary [id number] 2.16.840.1.435441.3.227.99.8646.9251.0 Self 7 [id number] Guyanese Progressive Commercial [id number] 2.16840.1. 454376.3.227.99.8646.9251.0 Self [id number] Medicare [place] Medicare Primary [id number] 2.16.840.1.973721.3.227.99.8646.9251.0 Self 7 [id number] Guyanese Progressive Commercial [id number] 2.16840.1. 460227.3.227.99.8646.9251.0 Self [id number] Medicare [place] Medicare Primary [id number] 2.16840.1.297496.3.227.99.8646.9251.0 Self 7 [id number] Medicare Dme Supplies Medigap Part B [id number] 2.16.840.1.028239.3.227.99.991.70007.0 Self 0 [id number] Medicare Dme Supplies Medigap Part B [id number] 2.16.840.1.006088.3.227.99.991.21066.0 Self 0 [id number] Medicare Dme Supplies Medigap Part B [id number] 2.16.840.1.077563.3.227.99.991.08508.0 Self 0 [id number] Guyanese Progressive Commercial [id number] 2.16.840.1. 451674.3.227.99.8646.9251.0 Self [id number] Medicare [place] Medicare Primary [id number] 2.16.840.1.538243.3.227.99.8646.9251.0 Self 0 [id number] Maintenance Organization ([employer]) [id number] 9201 2.840.1.469670.3.227.99.4595.77580.0 Family Dependent [id number] Guyanese Progressive Medigap Part B [id number] 2.840.1.157017.3.227.99.4595.27966.0 Self [id number] Medicare Dme Supplies Medigap Part B [id number] 2.16.840.1.548408.3.227.99.991.70595.0 Self 0 [id number] Guyanese Progressive Commercial [id number] 2.16840.1. 612178.3.227.99.8646.9251.0 Self [id number] Medicare [place] Medicare Primary [id number] 2.16.840.1.814281.3.227.99.8646.9251.0 Self [id number] [facility] [employer] Maintenance Organization ([employer]) [id number] 9201 2.16840.1.847223.3.227.99.4595.54373.0 Family Dependent [id number] Guyanese Progressive Medigap Part B [id number] 2.16840.1.404197.3.227.99.4595.55941.0 Self [id number] [facility] Health Maintenance Organization ([facility]) [id number] 9201 2.16840.1.167255.3.227.99.4595.56671.0 Family Dependent [id number] Guyanese Progressive Medigap Part B [id number] 2.16840.1.015208.3.227.99.4595.21531.0 Self [id number] GEORGIAN PROGRESSIVE [id number] SP [id number] MEDICARE C [id number] S [id number] GEORGIAN PROGRESSIVE O [id number] S [id number] Medicare Dme Supplies Medigap Part B [id number] 2.840.1.933757.3.227.99.991.56581.0 Self 0 [id number] [facility] Health Maintenance Organization ([facility]) [id number] 9201 2.840.1.046678.3.227.99.4595.07425.0 Family Dependent [id number] Guyanese Progressive Medigap Part B [id number] 2.0.1.995437.3.227.99.4595.80576.0 Self [id number] MEDICARE C [id number] S [id number] A Medicare Dme Supplies Medigap Part B [id number] 2.840.1.751726.3.227.99.991.26473.0 Self 0 [id number] [facility] Health Maintenance [facility] ([facility]) [id number] 9201 2.840.1.539683.3.227.99.4595.61841.0 Family Dependent [id number] Guyanese Progressive Medigap Part B [id number] 2.16840.1.390159.3.227.99.4595.37521.0 Self [id number] Guyanese Progressive Commercial [id number] 2.840.1. 353321.3.227.99.8646.9251.0 Self [id number] Medicare Upstate/[facility] Medicare Primary [id number] 2.16.840.1.992242.3.227.99.8646.9251.0 Self [id number] [facility] [employer] Health Maintenance Organization (O) [id number] 9201 2.16.840.1.696043.3.227.99.4595.67328.0 Family Dependent [id number] Guyanese Progressive Medigap Part B [id number] 2.16.840.1.811032.3.227.99.4595.12416.[id number] [facility] [employer] Maintenance Organization (O) [id number] 9201 2.16.840.1.041085.3.227.99.4595.44989.0 Family Dependent [id number] Guyanese Progressive Medigap Part B [id number] 2.16.840.1.667954.3.227.99.4595.08425.[id number] [facility] [employer] Maintenance Organization (O) [id number] 9201 2.16.840.1.162686.3.227.99.4595.92418.0 Family Dependent [id number] Guyanese Progressive Medigap Part B [id number] 2.16.840.1.032606.3.227.99.4595.93455.[id number] [facility] [employer] Maintenance Organization (O) [id number] 9201 2.16.840.1.791656.3.227.99.4595.87363.0 Family Dependent [id number] Guyanese Progressive Medigap Part B [id number] 2.16.840.1.264672.3.227.99.4595.79745.0 Self [id number] Medicare [facility] Medigap Part B [id number] 2.16.840.1.692921.3.227.99.991.23609.0 Self [id number] [facility] [employer] Maintenance Organization (O) [id number] 9201 2.16.840.1.553059.3.227.99.4595.04295.0 Family Dependent [id number] Guyanese Progressive Medigap Part B [id number] 2.16.840.1.619944.3.227.99.4595.47441.0 Self [id number] Guyanese Progressive Commercial [id number] 2.16.840.1. 811825.3.227.99.8646.9251.0 Self [id number] Medicare [place]/[facility] Medicare Primary [id number] 2.16.840.1.915145.3.227.99.8646.9251.0 Self 0 [id number] Guyanese Progressive Commercial [id number] 2.16.840.1. 710811.3.227.99.8646.9251.0 Self [id number] Medicare [place]/[facility] Medicare Primary [id number] 2.16.840.1.357269.3.227.99.8646.9251.0 Self 0 [id number] Medicare Dme Supplies Medigap Part B [id number] 2.16840.1.819000.3.227.99.991.08844.0 Self 0 [id number] [employer] Health Maintenance Organization ([employer]) [id number] 9201 2.16840.1.506263.3.227.99.4595.59245.0 Family Dependent [id number] Guyanese Progressive Medigap Part B [id number] 2.16.840.1.715359.3.227.99.4595.19942.[id number] [facility] [employer] Maintenance Organization ([facility]) [id number] 9201 2.16.840.1.121051.3.227.99.4595.39803.0 Family Dependent [id number] Guyanese Progressive Medigap Part B [id number] 2.16.840.1.709395.3.227.99.4595.37930.0 Self [id number] Medicare Dme Supplies Medigap Part B [id number] 2.16.840.1.032791.3.227.99.991.81489.0 Self 0 [id number] [employer] Health Maintenance Organization ([facility]) [id number] 9201 2.16.840.1.358769.3.227.99.4595.24155.0 Family Dependent [id number] Guyanese Progressive Medigap Part B [id number] 2.16.840.1.494865.3.227.99.4595.27673.0 Self [id number] [facility] Health Maintenance Organization ([facility]) [id number] 9201 2.16.840.1.139478.3.227.99.4595.14864.0 Family Dependent [id number] Guyanese Progressive Medigap Part B [id number] 2.16.840.1.040310.3.227.99.4595.73078.0 Self [id number] [facility] Health Maintenance Organization ([facility]) [id number] 9201 2.16.840.1.518345.3.227.99.4595.11959.0 Family Dependent [id number] Guyanese Progressive Medigap Part B [id number] 2.16.840.1.611766.3.227.99.4595.58361.0 Self [id number] Medicare Dme Supplies Medigap Part B [id number] 2.16.840.1.812522.3.227.99.991.27296.0 Self 0 [id number] [facility] Health Maintenance Organization ([facility]) [id number] 9201 2.16.840.1.770843.3.227.99.4595.44658.0 Family Dependent [id number] Guyanese Progressive Medigap Part B [id number] 2.16.840.1.581779.3.227.99.4595.39202.0 Self [id number] Medicare Dme Supplies Medigap Part B [id number] 2.16.840.1.411880.3.227.99.991.94699.0 Self 0 [id number] [facility] Health Maintenance Organization ([facility]) [id number] 9201 2.16.840.1.681488.3.227.99.4595.63706.0 Family Dependent [id number] Guyanese Progressive Medigap Part B [id number] 2.16.840.1.112802.3.227.99.4595.98266.0 Self [id number] GEORGIAN PROGRESSIVE O [id number] S [id number] Medicare Dme Supplies Medigap Part B [id number] 2.16.840.1.426492.3.227.99.991.95771.0 Self 0 [id number] [facility] Health Maintenance Organization ([facility]) [id number] 9201 2.16.840.1.744656.3.227.99.4595.17859.0 Family Dependent [id number] Guyanese Progressive Medigap Part B [id number] 2.16.840.1.395919.3.227.99.4595.75550.0 Self [id number] Medicare Dme Supplies Medigap Part B [id number] 2.16.840.1.510768.3.227.99.991.66717.0 Self 0 [id number] Medicare Dme Supplies Medigap Part B [id number] 2.16.840.1.550300.3.227.99.991.06060.0 Self 0 [id number] Medicare Dme Supplies Medigap Part B [id number] 2.16.840.1.320859.3.227.99.991.62171.0 Self 0 [id number] [facility] Health Maintenance Organization ([facility]) [id number] 9201 2.16.840.1.060743.3.227.99.4595.67963.0 Family Dependent [id number] Guyanese Progressive Medigap Part B [id number] 2.16.840.1.883671.3.227.99.4595.53174.0 Self [id number] [facility] Health Maintenance Organization ([facility]) [id number] 9201 2.16.840.1.927631.3.227.99.4595.86580.0 Family Dependent [id number] Guyanese Progressive Medigap Part B [id number] 2.16.840.1.659040.3.227.99.4595.46805.[id number] [facility] [employer] Maintenance Organization (O) [id number] 9201 2.16.840.1.388103.3.227.99.4595.30943.0 Family Dependent [id number] Guyanese Progressive Medigap Part B [id number] 2.16.840.1.345300.3.227.99.4595.17252.[id number] [facility] Blue Health Maintenance Organization (O) [id number] 9201 2.16.840.1.564283.3.227.99.4595.60846.0 Family Dependent [id number] Guyanese Progressive Medigap Part B [id number] 2.16.840.1.082448.3.227.99.4595.21800.[id number] [facility] Blue Health Maintenance Organization (O) [id number] 9201 2.16.840.1.860836.3.227.99.4595.81965.0 Family Dependent [id number] Guyanese Progressive Medigap Part B [id number] 2.16.840.1.317206.3.227.99.4595.79971.[id number] [facility] [employer] Health Maintenance Organization (O) [id number] 9201 2.16.840.1.862635.3.227.99.4595.19916.0 Family Dependent [id number] Guyanese Progressive Medigap Part B [id number] 2.16.840.1.536210.3.227.99.4595.27006.[id number] [facility] [employer] Maintenance Organization (O) [id number] 9201 2.16.840.1.297253.3.227.99.4595.28155.0 Family Dependent [id number] Guyanese Progressive Medigap Part B [id number] 2.16.840.1.122503.3.227.99.4595.25764.0 Self [id number] [facility] Health Maintenance Organization ([facility]) [id number] 9201 2.16.840.1.384846.3.227.99.4595.30911.0 Family Dependent [id number] Guyanese Progressive Medigap Part B [id number] 2.16.840.1.744012.3.227.99.4595.14009.0 Self [id number] [facility] Health Maintenance Organization ([facility]) [id number] 9201 2.16.840.1.153695.3.227.99.4595.68839.0 Family Dependent [id number] Guyanese Progressive Medigap Part B [id number] 2.16.840.1.493833.3.227.99.4595.02348.0 Self [id number] [facility] Health Maintenance Organization ([facility]) [id number] 9201 2.16.840.1.285792.3.227.99.4595.61512.0 Family Dependent [id number] Guyanese Progressive Medigap Part B [id number] 2.16.840.1.345566.3.227.99.4595.92412.0 Self [id number] [facility] Health Maintenance Organization ([facility]) [id number] 9201 2.16.840.1.312871.3.227.99.4595.00308.0 Family Dependent [id number] Guyanese Progressive Medigap Part B [id number] 2.16.840.1.372485.3.227.99.4595.96654.0 Self [id number] Guyanese Progressive Commercial [id number] 2.16.840.1.035049.3.227.99.1037.38026.0 Self [id number] Medicare Part B Medicare Primary [id number] 2.16.840.1.614342.3.227.99.1037.27907.0 Self [id number] Medicare Dme Supplies Medigap Part B [id number] Self Guyanese Progressive Medigap Part B 34500 Self Medicare Natl Gov't Servi Medicare Primary [id number] Self MEDICARE [id number] SP [id number] A Guyanese Progressive Commercial [id number] Self Medicare [place]/[facility] Medicare Primary [id number] Self [employer] Commercial [id number] Self Medicare Part B Medicare Primary [id number] Self Guyanese Progressive Commercial [id number] Self Medicare Medicare Primary [id number] Self Guyanese Progressive Medigap Part B [id number] Self GEORGIAN PROGRESSIVE UNAVAILABLE UNAVAILABLE [id number] Problems, Conditions, and Diagnoses Code Display Name Description Problem Type Effective Dates Data Source(s) follow up follow up Diagnosis 04/02/2021 09:31:55 AM ED [facility] follow follow Diagnosis 09/27/2020 08:23:59 AM ED [facility] Surgeries/Procedures Procedure Description Date Indications Data Source(s) OFFICE OUTPATIENT VISIT 15 MINUTES 04/04/2021 12:00:00 AM EDT [facility] ([facility]) ECG ROUTINE ECG W/LEAST 12 LDS W/I&R 02/23/2021 12:00: 00 AM EDT [facility] ([facility]) OFFICE OUTPATIENT VISIT 25 MINUTES 02/23/2021 12:00:00 AM EDT [facility] ([facility]) OFFICE OUTPATIENT VISIT 25 MINUTES 02/07/2021 12:00:00 AM EDT [facility] ([facility]) Diabetic Retinal Eye Exam 01/29/2021 12:00:00 AM EDT [facility] ([facility]) OFFICE OUTPATIENT VISIT 25 MINUTES 10/20/2020 12:00:00 AM EDT [facility] ([facility]) OFFICE OUTPATIENT VISIT 15 MINUTES 10/03/2020 12:00:00 AM EDT [facility] ([facility]) RADIOLOGY REPORT <td>RADIOLOGY REPORT</td><td ></td><td>09/22/2020 11:31 AM EDT</td><td></td><td></td> 09/22/2020 11:31:44 AM EDT [facility] ARTHROCENTESIS ASPIR&/INJECTION MAJOR JT/BURSA 021 12:00:00 AM EST [facility] ([facility]) RADIOLOGY REPORT <td>RADIOLOGY REPORT</td><td ></td><td>06/05/2020 11:01 AM EST</td><td></td><td></td> 06/05/2020 11:01:55 AM EST [facility] Results ID Date Data Source [id number] 04/03/2021 11:29:29 AM EDT [facility] Hospital Name Value Range Interpretation Code Description Data Kika rce(s) Supporting Document(s) Progress Note [facility] KIPFYg6eIhWUFbXa54/IZTwiXKXmk7PyKRuhGPg1UAisWMJlT0FbHGR0cC9kAFJ9PJkNEqWcNoQsVFDe lbm [file] Maria Guadalupe/LS9ns8jH8VqpX1xjbmpn/[id number] [file] [id number]= ID Date Data Source [id number] 02/23/2021 03:05:00 PM EDT [facility] ([facility]) Name Value Range Interpretation Code Description Data Kika rce(s) Supporting Document(s) Thyrotropin [Units/volume] in Serum or Plasma by Detec tion limit <= 0.05 mIU/L 11.57 uIU/mL 0.36-3.74 [facility] ([facility] ) ID Date Data Source [id number] 02/23/2021 03:05:00 PM EDT [facility] ([facility]) Name Value Range Interpretation Code Description Data Kika rce(s) Supporting Document(s) Glucose [Mass/volume] in Serum or Plasma 104 mg/dL 74-99 [facility] ([facility]) 100-125 mg/dL PRE-DIABETES/FASTING >126 mg/dL DIABETES/FASTING Urea nitrogen [Mass/volume] in Serum or Plasma 20 mg/dL 7-18 [facility] ([facility]) Potassium [Moles/volume] in Serum or Plasma 3.7 meq/L 3.5-5.1 [facility] ([facility]) Creatinine 1.4 mg/dL 0.6-1.3 [facility] ([facility]) Sodium [Moles/volume] in Serum or Plasma 142 meq/L 136-145 [facility] ([facility]) Chloride [Moles/volume] in Serum or Plasma 103 meq/L 98-107 [facility] ([facility]) Carbon dioxide, total [Moles/volume] in Serum or Plasma 34 meq/L 21 -32 [facility] ([facility]) Calcium [Mass/volume] in Serum or Plasma 9.8 mg/dL 8.5-10.1 [facility] ([facility]) Total Bilirubin 0.3 mg/dL 0.2-1.0 [facility] ([facility]) Aspartate aminotransferase [Enzymatic activity/volume] in Serum or Plasma 79 U/L 15-37 [facility] ([facility] ) NOTE: AST,ALT,TSH VERIFIED Alkaline phosphatase isoenzyme [Units/volume] in Serum or Pl asma 57 mg/dL 46-116 [facility] ([facility]) Alanine aminotransferase [Enzymatic activity/volume] in Seru m or Plasma 100 U/L 12-78 [facility] ([facility]) Albumin [Mass/volume] in Serum or Plasma 3.2 g/dL 3.4-5.0 [facility] ([facility]) Proteinase 3 Ab [Units/volume] in Serum 7.2 g/dL 6.4-8.2 [facility] ([facility]) Glomerular filtration rate/1.73 sq M pre dicted among non-blacks [Volume Rate/Area] in Serum or Plasma by Creatinine-based formula (MDRD) 37 mL/min [facility] ([facility]) A/G Ratio 0.80 CALC 1.00-1.90 [facility] ([facility]) Glomerular filtration rate/1.73 sq M pre dicted among blacks [Volume Rate/Area] in Serum or Plasma by Creatinine-based formula (MDRD) 44 mL/min [facility] <content>CHRONIC KIDNEY DISEASE STAGING PER NKF</content>
<content></content>
<content>STAGE I & II GFR >= 60 NORMAL TO MILDLY DECREASED</content>
<content>STAGE III GFR 30-59 MODERATELY DECREASED</content>
<content>STAGE IV GFR 15-29 SEVERELY DECREASED</content>
<content>STAGE V GFR <15 VERY LITTLE GFR LEFT</content>
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
<content></content> ID Date Data Source [id number] 02/23/2021 03:05:00 PM EDT [facility] Name Value Range Interpretation Code Description Data Kika rce(s) Supporting Document(s) Hemoglobin A1c/Hemoglobin.total in Blood 6.5 % [facility] ([facility]) Lab Result Notes: Pre-Diabetes 5.7 - 6.4 % Diabetes = or > 6.5% Glucose mean value [Mass/volume] in Blood Estimated fr om glycated hemoglobin 140 mg/dL 60-110 [facility] ID Date Data Source [id number] 02/23/2021 03:05:00 PM EDT [facility] ([facility] Name Value Range Interpretation Code Description Data Kika rce(s) Supporting Document(s) Leukocytes [#/volume] in Blood by Automated count 6.1 x10*3/UL 4.1-10 .9 [facility] ([facility]) Erythrocytes [#/volume] in Blood by Automated count 3.90 x10*6/UL 4.2 0-6.30 [facility] ([facility]) Hemoglobin [Mass/volume] in Blood 10.9 g/dL 12.0-18.0 [facility] ([facility]) Hematocrit [Volume Fraction] of Blood by Automated count 33.8 % 3 7.0-51.0 [facility] ([facility]) MCV 86.6 fL 80.0-97.0 [facility] MCH 28.0 pg 26.0-32.0 [facility] ([facility]) MCHC 32.3 g/dL 31.0-38.0 [facility] ([facility]) Erythrocyte distribution width [Ratio] by Automated count 14.8 % 11.6-13.7 [facility] ([facility]) Platelets [#/volume] in Blood by Automated count 241 x10*3/UL 140-440 [facility] ([facility]) MPV 7.0 FL 7.8-11.0 [facility] ([facility]) Lymph % 23.3 % 10.0-58.5 [facility] ([facility]) Mid % 6.5 % 1.7-9.3 [facility] ([facility]) Neut % 70.2 % 37.0-92.0 [facility] ([facility]) Lymph # 1.4 x10*3/UL 0.6-4.1 [facility] ([facility]) Mid # 0.4 x10*3/UL 0.1-0.6 [facility] ([facility]) Neut # 4.3 x10*3/UL 2.0-7.8 [facility] ([facility]) ID Date Data Source [id number] 02/13/2021 03:00:00 PM EDT [facility] ([facility]) Name Value Range Interpretation Code Description Data Kika rce(s) Supporting Document(s) Ferritin [Mass/volume] in Serum or Plasma 16 ng/mL 8-252 [facility] ([facility]) ID Date Data Source [id number] 02/13/2021 03:00:00 PM EDT [facility] ([facility]) Name Value Range Interpretation Code Description Data Kika rce(s) Supporting Document(s) Iron (Fe) 46 ug/dL 50-170 [facility] ([facility]) Total Iron Binding Capacity 451 ug/dL 250-450 [facility] ([facility]) Percent Saturation 10.2 % 13.2-45.0 [facility] ([facility]) ID Date Data Source [id number] 02/07/2021 03:18:00 PM EDT [facility] ([facility]) Name Value Range Interpretation Code Description Data Kika rce(s) Supporting Document(s) C reactive protein [Mass/volume] in Serum or Plasma by High sensitivity method Laboratory test result 0.00-0.30 [facility] ([facility]) ID Date Data Source [id number] 02/07/2021 03:17:00 PM EDT [facility] ([facility]) Name Value Range Interpretation Code Description Data Kika rce(s) Supporting Document(s) Glucose [Mass/volume] in Serum or Plasma 156 mg/dL 74-99 [facility] ([facility]) 100-125 mg/dL PRE-DIABETES/FASTING >126 mg/dL DIABETES/FASTING Urea nitrogen [Mass/volume] in Serum or Plasma 22 mg/dL 7-18 [facility] ([facility]) Creatinine 1.5 mg/dL 0.6-1.3 [facility] ([facility]) Sodium [Moles/volume] in Serum or Plasma 143 meq/L 136-145 [facility] ([facility]) Chloride [Moles/volume] in Serum or Plasma 105 meq/L 98-107 [facility] ([facility]) Carbon dioxide, total [Moles/volume] in Serum or Plasma 33 meq/L 21 -32 [facility] ([facility]) Potassium [Moles/volume] in Serum or Plasma 4.2 meq/L 3.5-5.1 [facility] ([facility]) Total Bilirubin 0.4 mg/dL 0.2-1.0 [facility] ([facility]) Calcium [Mass/volume] in Serum or Plasma 9.5 mg/dL 8.5-10.1 [facility] ([facility]) Alkaline phosphatase isoenzyme [Units/volume] in Serum or Pl asma 50 mg/dL 46-116 [facility] ([facility]) Albumin [Mass/volume] in Serum or Plasma 3.3 g/dL 3.4-5.0 [facility] ([facility]) Alanine aminotransferase [Enzymatic activity/volume] in Seru m or Plasma 51 U/L 12-78 [facility] ([facility]) Aspartate aminotransferase [Enzymatic activity/volume] in Serum or Plasma 49 U/L 15-37 [facility] ([facility] ) A/G Ratio 0.85 CALC 1.00-1.90 [facility] Glomerular filtration rate/1.73 sq M pre dicted among non-blacks [Volume Rate/Area] in Serum or Plasma by Creatinine-based formula (MDRD) 34 mL/min [facility] ([facility]) Proteinase 3 Ab [Units/volume] in Serum 7.2 g/dL 6.4-8.2 [facility] ([facility]) Glomerular filtration rate/1.73 sq M pre dicted among blacks [Volume Rate/Area] in Serum or Plasma by Creatinine-based formula (MDRD) 41 mL/min [facility] ([facility]) <content>CHRONIC KIDNEY DISEASE STAGING PER NKF</content>
<content></content>
<content>STAGE I & II GFR >= 60 NORMAL TO MILDLY DECREASED</content>
<content>STAGE III GFR 30-59 MODERATELY DECREASED</content>
<content>STAGE IV GFR 15-29 SEVERELY DECREASED</content>
<content>STAGE V GFR <15 VERY LITTLE GFR LEFT</content>
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
<content></content> ID Date Data Source [id number] 02/07/2021 03:17:00 PM EDT [facility] ([facility]) Name Value Range Interpretation Code Description Data Kika rce(s) Supporting Document(s) Erythrocyte sedimentation rate by Westergren method 31 mm/hr 0-15 [facility] ([facility]) ID Date Data Source [id number] 02/07/2021 03:17:00 PM EDT [facility] ([facility]) Name Value Range Interpretation Code Description Data Kika rce(s) Supporting Document(s) Leukocytes [#/volume] in Blood by Automated count 4.7 x10*3/UL 4.1-10 .9 [facility] ([facility]) Hemoglobin [Mass/volume] in Blood 10.7 g/dL 12.0-18.0 [facility] ([facility]) NOTE: RESULT VERIFIED. Erythrocytes [#/volume] in Blood by Automated count 3.80 x10*6/UL 4.2 0-6.30 [facility] ([facility]) MCV 86.7 fL 80.0-97.0 [facility] ([facility]) Hematocrit [Volume Fraction] of Blood by Automated count 33.0 % 3 7.0-51.0 [facility] ([facility]) MCH 28.3 pg 26.0-32.0 [facility] ([facility]) Erythrocyte distribution width [Ratio] by Automated count 14.4 % 11.6-13.7 [facility] ([facility]) MCHC 32.6 g/dL 31.0-38.0 [facility] ([facility]) Platelets [#/volume] in Blood by Automated count 250 x10*3/UL 140-440 [facility] ([facility]) MPV 7.5 FL 7.8-11.0 [facility] ([facility]) Lymph % 24.7 % 10.0-58.5 [facility] ([facility]) Lymph # 1.1 x10*3/UL 0.6-4.1 [facility] ([facility]) Neut % 67.7 % 37.0-92.0 [facility] ([facility]) Mid % 7.6 % 1.7-9.3 [facility] ([facility]) Neut # 3.1 x10*3/UL 2.0-7.8 [facility] ([facility]) Mid # 0.5 x10*3/UL 0.1-0.6 [facility] ([facility]) ID Date Data Source [id number] 10/20/2020 03:27:00 PM EDT [facility] ([facility]) Name Value Range Interpretation Code Description Data Kika rce(s) Supporting Document(s) Microalbumin Urine 37.9 mg/L 1.3-20.0 [facility] ([facility]) Microalb/Creat Ratio 109.5 ug/mg 0.0-30.0 [facility] ([facility]) Urine Creatinine 34.6 mg/dL 30.0-125.0 [facility] ([facility]) ID Date Data Source [id number] 10/20/2020 03:27:00 PM EDT [facility] ([facility]) Name Value Range Interpretation Code Description Data Kika rce(s) Supporting Document(s) Thyrotropin [Units/volume] in Serum or Plasma by Detec tion limit <= 0.05 mIU/L 0.54 uIU/mL 0.36-3.74 [facility] ([facility] ) ID Date Data Source [id number] 10/20/2020 03:27:00 PM EDT [facility] ([facility]) Name Value Range Interpretation Code Description Data Kika rce(s) Supporting Document(s) Cholesterol [Mass/volume] in Serum or Plasma 113 mg/dL 131-200 [facility] ([facility]) Triglyceride [Mass/volume] in Serum or Plasma 34 mg/dL 30-150 [facility] ([facility]) Cholesterol in HDL [Mass/volume] in Serum or Plasma 78 mg/dL 35-60 [facility] ([facility]) Cholesterol in LDL [Mass/volume] in Serum or Plasma by calcu lation 28 CALC 50-159 [facility] ([facility]) ID Date Data Source [id number] 10/20/2020 03:27:00 PM EDT [facility] ([facility]) Name Value Range Interpretation Code Description Data Kika rce(s) Supporting Document(s) Glucose mean value [Mass/volume] in Blood Estimated fr om glycated hemoglobin 143 mg/dL 60-110 [facility] ([facility] ) Hemoglobin A1c/Hemoglobin.total in Blood 6.6 % [facility] ([facility]) Lab Result Notes: Pre-Diabetes 5.7 - 6.4 % Diabetes = or > 6.5% ID Date Data Source [id number] 10/05/2020 12:44:02 PM EDT [facility] Name Value Range Interpretation Code Description Data Kika rce(s) Supporting Document(s) Progress Note [facility] NJWSGj1oCvJHXnHn78/UIFzsIQXyj2HtQSdeIYl9WAwyKLHrQ7XpZTM7wG6sSMR2BKbLSaVrZuXmDAL5 lbm [file] KiTeM2YqVqCBOaUS4eHNXUEv2+GCrpwMLicOocOBVZWwV3ILD3ZEksIGLFDv4Y ID Date Data Source [id number] 10/03/2020 09:34:00 AM EDT [facility] ([facility]) Name Value Range Interpretation Code Description Data Kika rce(s) Supporting Document(s) Leukocytes [#/volume] in Blood by Automated count 5.3 x10*3/UL 4.1-10 .9 [facility] ([facility]) Erythrocytes [#/volume] in Blood by Automated count 3.93 x10*6/UL 4.2 0-6.30 [facility] ([facility]) Hemoglobin [Mass/volume] in Blood 12.0 g/dL 12.0-18.0 [facility] ([facility]) MCH 30.6 pg 26.0-32.0 [facility] ([facility]) MCV 93.4 fL 80.0-97.0 [facility] ([facility]) Hematocrit [Volume Fraction] of Blood by Automated count 36.7 % 3 7.0-51.0 [facility] ([facility]) Erythrocyte distribution width [Ratio] by Automated count 13.0 % 11.6-13.7 [facility] ([facility]) MCHC 32.8 g/dL 31.0-38.0 [facility] ([facility]) Platelets [#/volume] in Blood by Automated count 246 x10*3/UL 140-440 [facility] ([facility]) MPV 7.2 FL 7.8-11.0 [facility] ([facility]) Lymph % 25.0 % 10.0-58.5 [facility] ([facility]) Mid % 6.5 % 1.7-9.3 [facility] ([facility]) Neut % 68.5 % 37.0-92.0 [facility] ([facility]) Lymph # 1.3 x10*3/UL 0.6-4.1 [facility] ([facility]) Neut # 3.6 x10*3/UL 2.0-7.8 [facility] ([facility]) Mid # 0.4 x10*3/UL 0.1-0.6 [facility] ([facility]) ID Date Data Source [id number] 10/03/2020 09:34:00 AM EDT [facility] ([facility]) Name Value Range Interpretation Code Description Data Kika rce(s) Supporting Document(s) Glucose [Mass/volume] in Serum or Plasma 205 mg/dL 74-99 [facility] ([facility]) 100-125 mg/dL PRE-DIABETES/FASTING >126 mg/dL DIABETES/FASTING Urea nitrogen [Mass/volume] in Serum or Plasma 22 mg/dL 7-18 [facility] ([facility]) Potassium [Moles/volume] in Serum or Plasma 4.4 meq/L 3.5-5.1 [facility] ([facility]) Creatinine 1.0 mg/dL 0.6-1.3 [facility] ([facility]) Sodium [Moles/volume] in Serum or Plasma 142 meq/L 136-145 [facility] ([facility]) Carbon dioxide, total [Moles/volume] in Serum or Plasma 31 meq/L 21 -32 [facility] ([facility]) Chloride [Moles/volume] in Serum or Plasma 102 meq/L 98-107 [facility] ([facility]) Calcium [Mass/volume] in Serum or Plasma 9.3 mg/dL 8.5-10.1 [facility] ([facility]) Glomerular filtration rate/1.73 sq M pre dicted among blacks [Volume Rate/Area] in Serum or Plasma by Creatinine-based formula (MDRD) Laboratory test result [facility] ([facility]) <content>CHRONIC KIDNEY DISEASE STAGING PER NKF</content>
<content></content>
<content>STAGE I & II GFR >= 60 NORMAL TO MILDLY DECREASED</content>
<content>STAGE III GFR 30-59 MODERATELY DECREASED</content>
<content>STAGE IV GFR 15-29 SEVERELY DECREASED</content>
<content>STAGE V GFR <15 VERY LITTLE GFR LEFT</content>
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
<content></content> Glomerular filtration rate/1.73 sq M pre dicted among non-blacks [Volume Rate/Area] in Serum or Plasma by Creatinine-based formula (MDRD) 54 mL/min [facility] ([facility]) ID Date Data Source [id number] 06/14/2020 08:50:49 AM [facility] Name Value Range Interpretation Code Description Data Kika rce(s) Supporting Document(s) Progress Note [facility] WPIIUg8xBvUUIgFl71/WHKjeQOOwz1IaMUaiRBu8VSuyLKLjX2HfKXG5rM3oCCP9IVyRAwQpJiPlNPWl [facility] [file] AgICAgICAgICAgICAgICAgICAgICAgICAgICAgICAgICAgICAgICAgICAgICAgICAgICAgICAgICAgIC AgICAgICAgICANCiAgICAgICAgICAgICAgICAgICAg ICAgICAgICAgICAgICAgICAgICAgICAgICAgICAgICAgICAgICAgICAgICAgICAgICAgICAgICAgICAg ICAgICAgICAgICAgICAgICAgICANCiAgICAgICAgICAgICAgICAgICAgICAgICAgICAgICAgICAgICAg ICAgICAgICAgICAgICAgICAgICAgICAgICAgICAgIC AgICAgICAgICAgICAgICAgICAgICAgICAgICAgICANCiAgICAgICAgICAgICAgICAgICAgICAgICAgIC AgICAgICAgICAgICAgICAgICAgICAgICAgICAgICAgICAgICAgICAgICAgICAgICAgICAgICAgICAgIC AgICAgICAgICAgICANCiAgICAgICAgICAgICAgICAg ICAgICAgICAgICAgICAgICAgICAgICAgICAgICAgICAgICAgICAgICAgICAgICAgICAgICAgICAgICAg ICAgICAgICAgICAgICAgICAgICAgICANCiAgICAgICAgICAgICAgICAgICAgICAgICAgICAgICAgICAg ICAgICAgICAgICAgICAgICAgICAgICAgICAgICAgIC AgICAgICAgICAgICAgICAgICAgICAgICAgICAgICAgICANCiAgICAgICAgICAgICAgICAgICAgICAgIC AgICAgICAgICAgICAgICAgICAgICAgICAgICAgICAgICAgICAgICAgICAgICAgICAgICAgICAgICAgIC AgICAgICAgICAgICAgICANCiAgICAgICAgICAgICAg ICAgICAgICAgICAgICAgICAgICAgICAgICAgICAgICAgICAgICAgICAgICAgICAgICAgICAgICAgICAg ICAgICAgICAgICAgICAgICAgICAgICAgICANCiAgICAgICAgICAgICAgICAgICAgICAgICAgICAgICAg ICAgICAgICAgICAgICAgICAgICAgICAgICAgICAgIC AgICAgICAgICAgICAgICAgICAgICAgICAgICAgICAgICAgICANCiAgICAgICAgICAgICAgICAgICAgIC AgICAgICAgICAgICAgICAgICAgICAgICAgICAgICAgICAgICAgICAgICAgICAgICAgICAgICAgICAgIC AgICAgICAgICAgICAgICAgICANCjw/rRVsM5sagKXo qfN0C6diMd7XFf5QDB4ha1CiGBKxVQmygkNaZkxGQbTsVKRhArqFVgq7IJlgSV3UvLSbR2JeC0RcZYkc NN6HEPVrJULmiFMpVAOuROYpZeF8KXIgWQivLZ2NtZLcLWzlBXApXHIuSjHpVENaIXFxYBWtMWWiCSEQ UX5SOoKtU8JuoU21PWYYDg1+LArougEbOsbTUmT1XP Xze6JmTYu5SC3CBCNkDjbub1YmWtYeTMXBMHplAK3FRLK6DUN7FVCrSg7ZMJCqP231rfZjHM7BJg7COq YxLE3vkt1ONpBhPNImGmyVXyq0QRtuMZ2DdWMkFRmXlr5misTgfmMBr0YiixEfmKAHOA8kgjViRXQCh6 14xVpwJA5UMHC2NSVwYQ3yBBNqAXHsEtYlIVIAHC3P IFXrHXWisRTdWLNrJAPGCH3HJFowOLT3ROQmurOiiINwKFgdFY5AVAGnzjOmSjWcGGUETKj+Rn5HLN0r j4KiBQujZaGfDQ5fum5JUVpXXmAxT5P6rFFaY6D8WYipHm7GFHXiXKBpIdZbAODOVZwiWU1VVO4ylhV9 KM9PeSKwOYAwTKPqxANuVVn1B56hzHFyKNruBC0WHZ A+Fozia+Pj7CFJHjCFLmTWKrRqAjWFCQViLhF7ViC9XPm8KsL3MvTG71wFidinKzHEgpBV6OSD7hVRUrMG LLQD3VtUIldL9brmEvTBCbLXVMQnFmW21xtHLhEJBpCNT6KKKcNy1GGXDfX5WtecCabQyzxvWuGDRhVZ VGSO2LQWqysaLoxLIsuRkwTZ16sGvoEQ0XLx5EMlGl FF0zzb9ElEZoPf3DMWYxVL5DFYJkCFNlQUAaVBE3OOSzXiYxASiaAGHaCKVcCCQ2ISXqYXKrPV4FRcAk XXRzRnz8KYUpKTUwNNVthe1WACWvYKFoABXqTIBnNOLtLXIwLZoaZRUdCUHoGKZ0FIJoLIBdMZ1KMbLa KAWzMWT2CHykXYVuIBFkum5WQAQgGNIqVTS6WnFpVM KhPPVcQZagNFLrFFH4RwInMFKfIMNvFD7CMtEwNHOrWIg6PGRzTXFgRAAzuz6UCETxNLXjQWO8BdEkOT ZxMZQpDGmtRVMbJSCpBYkeQGLeEYNnWB0WDrXnRBVzQBYwCuRsNCEwCDBijw6IVKXdXCZlNyRnKEHdSJ ImUKFoUPxwQHTzJBPyXkj9KOIvMPPwZV4MOaHuIEFo UKH5QSHpFPRkQEEtnm0FFHGtRDZwRvC5UFDfAJAlYDUzKEgwJYLlOGN6AgI4HEMtZKSxGH3HYlZkPAIo FNH9LxXtUWLuUGNcwu7IMBTiMPUlFHUdZPImAVTsEFNqUVolAWRiCUW6PLN4IAAvAVEwYF9FRlBvJINy KvP4JpCkDGBaPRMsuq3AORFsJZLmGxp5ZoYhIXUmEK TmYDhcGOSoREM5AoFcZUDcGBCxHT1NUeQcDEWxOmeqFwflKPYeDJKtax4CYSThHZGpLfh3YVCjLCPmHX XgVMjqWGUjLAE8ChL0OCGuOYJeIR1OMhBzZMRkFpisYLivOURyKPIqtq0ADJDiIYAvFSS9YvGaVPYlSE AqBXm9lgHnkLKnCMe0PF7JU0SkvjHzVswRRb3Xj980 FQQ4ZNRgBn2DG9saSo9tSSXwSOUNFr6WEFp1JJUoVzV6RxUgQxGkIIO9MXDySzLpUVLaUsEwWMThBeC+ GFloVSYgNgy5ZqVmDIXyCsonEaDgSzXzAuQ4NlHpKxPoRg8hTUMYCh0+MWxblKOeqXhsBVOQInS0QvZn YZdwVHSOMb0X ID Date Data Source [id number] 05/30/2020 12:00:00 PM [facility] ([facility], [facility]) Name Value Range Interpretation Code Description Data Kika rce(s) Supporting Document(s) Bacteria identified in Urine by Culture Laboratory test result [facility] ([facility], [facility]) Rx Keflex ID Date Data Source [id number] 05/05/2020 03:58:48 PM [facility] Name Value Range Interpretation Code Description Data Kika rce(s) Supporting Document(s) Progress Note [facility] JKKKIo0xRyMRSpMn94/GZAcxAJBwx3YeIQduERa5SXhrNVXzD0CmMJD1qO3zUDO7GKlPTzChUaLaWpZ7 lbm [file] AgICAgICAgICAgICAgICAgICAgICAgICAgICAgICAg VZPrKEJiCIWyCINnFPRjOOMdYY7ZILTaXBOcZKViLZUhEZQvZMZuLZRlSEJeKSGuAAJnPNJeDODsJUEx ICAgICAgICAgICAgICAgICAgICAgICAgICAgICAgICAgICAgICAgICAgICAgICAgICAgICAgICAgICAg LG5GZFJnCCYxMTFxDFTiTNQgVDTnMVEqMSEwAVAqAW AgICAgICAgICAgICAgICAgICAgICAgICAgICAgICAgICAgICAgICAgICAgICAgICAgICAgICAgICAgIC HlCKMyGZRdVISbDL1RVUHvTTJcUPDtEEPoDJPoUVNzWEPrXBNdTLQbFLAeFSRnLXHvOZGrRGWiMNUgCN AgICAgICAgICAgICAgICAgICAgICAgICAgICAgICAg ZEDnXBHuSLQzSUEkRNPvXFOcSEUgZF9FXENvFNIzIOMgTAGqFFReDQOyBIQyZAJzDLBwREDqILHmXWOv ICAgICAgICAgICAgICAgICAgICAgICAgICAgICAgICAgICAgICAgICAgICAgICAgICAgICAgICAgICAg EWFgCP9KPLZkEYAcLPKoTXCbAMEcKVJmNIKeSBPkOO AgICAgICAgICAgICAgICAgICAgICAgICAgICAgICAgICAgICAgICAgICAgICAgICAgICAgICAgICAgIC RhEZYnFQZsOZGtWFByGL4QXMHsJSErHZSmSFEzCNYfHCBpTXXbVKXfPPCwXBWtTDCsSSYmYVWjZJOmPI AgICAgICAgICAgICAgICAgICAgICAgICAgICAgICAg AWCmBTBhQQQoNYHoVGLyACHwGCKrUEKvJE0DFTYmZXZkHUAbONZlUOVxAPQjROZtGQJbOZSrEIUjCDAm ICAgICAgICAgICAgICAgICAgICAgICAgICAgICAgICAgICAgICAgICAgICAgICAgICAgICAgICAgICAg BKXbYFYeOU1QAMClOISrCBJtJJVaBDUuAZJtHNOiCD AgICAgICAgICAgICAgICAgICAgICAgICAgICAgICAgICAgICAgICAgICAgICAgICAgICAgICAgICAgIC AqYEGlNGMdODLmOZChXCRxCJ9YFQEcSCAlMQPsIEEnUIVeOTPeWHUdLLBkFJOuGLQiFEDbAMZsNWChOH AgICAgICAgICAgICAgICAgICAgICAgICAgICAgICAg BANbHZQnQNYhTRTrTFIeHWAhSGQoWRNpOGFySJ0BMU07bVOnx8H0KBTbBN3rdqd/Xy7YHYzoqqSncZTx GS4DHqVuXJ6pvg6TBeIgNU7qij8XWRhAVmDiI8D7qDDnNTFtPCOHRtOwK28pXZswMb17KPdtCNKqPmPa ORu6Iw9RWhHcY5bgRIAkIgM3CTKjHwM5TBXvZbK8VS VwZkImETwxYA4Ge8BufQHlNUs+Td4NKR1qn1IgSFkeEyHnKA6pdr2OGIeQAoMsU0XcomG6NME8WXXbTo 9PKTVrFWGvoGXpSYErKRRCBiYrX5QxdO20SXRITi2+JGtxibMoPmpZNvZ2NPFuh9TyATc9WH5LOGYxPR m2xBIrVICbI4Ydt1BxWe84XMGuLdndGJsunDSxmNKV IU6pjVudUVZkIKPzUZNfEB1eNOCzVKUcEpUhXIKLIF5VDZZgLOAvhWMxVNRkVPVIPQ5VCBdmWCT0EICn pxLofCCxGNlwRU3FGQJhmqBbXlZnGLQQMYj+Tz0WFC2qc3ReOZcjTUMgDP6eyk4KUSuDUbVfG4O5nHXr E8H8TVflSd5VCZAuTFZeAeGjGCYMVNofYC2EBO8fbc F4YF5NbLGxVQGwIXTchRLvFJe0F15udAAhHMcwGC3LWNE+Fozia+Cy2BNZGoFDOrLEDcUjDpGITGXkZhP1 McC4FBq5MvX2BnCC57wKiywaEgMUxeGU7ZUU3dNFQwWKVMCH7CgWQviY6zaaSfXxCfXFAUDeJqU91bkJ AnTIDrPVKwNZBvSi4CQEWoN9TvsaRuyUbnlgJzBVJn MTDPBE5RPTwjgvSnpQMzxLxyBR45oXksPZ3DXd0INrHzMH4rgc6DdVSkBh5TPVDbPi6JWFIxGJPyWRPu ZZF7NWOgUqYrMUjuLZJdHOAnEMJ1MISxWXKbFQ4FBwTiFCGnJlF4TwQiQJFoMJGqih2KLLQyEIUoTmE0 PUUfUFSdRBReFXmsBRMhKPNjNOU9IXFfKBGcWM6TYa FfBTOiKTHyHTFzWUQpAVEuix9GQVQlEPCgYQP8UtUrMIIgZGZxPQgnKSTzECF1TMElZQPjOMKnPH1DMq KgDSIlAQqgQDQuLZTqDANqsl8JLXGuMPBpZRJ3JXLnARIaCOHiBEkwECInIVRmQQA7JPVmERFzEB3WXm VxFIFiRXJ0ZNZwVFVzZASyio3GJSWyQXCyLkPvJqTc HMIyEMNqSHtdCDBnNGNaMId1PASgWBXcVV4LEtCrIQLwLSJxUXGuZZBvATBcxs7YLXFaAMIkEaB3SsEa JJDjTSSyVBngYEVuTURmOEY0NBWjJOFqRA7PEpYrONMtQnB4IcStACJhPWVfic4JKPKeIVReMWU4QCEc CBXoZSRpQLugPQAxLHC8HZC9ELQnTNWzTB8IYeTvAJ HuFkN3MTizEMEyXJYqim1HTLVnMKUgDYazVHAmOVNjVPEdFTbyZJXnYNV8LoK9RDWmIMTuKE0LZdWeOI NlIgj1UZBxFLDvTXIvqt8PTGBvLBHxKtogAfEtVTIgOQKeRSjqPXEoRLN0BHp4UWZzLLEkYJ0CHoPuZJ laUFKONbo7GNndV5y3LODyEu3GK4Nue0GhGxLxIVGO ZJkpKP8zqjLwJXSaKy5LQ5wCJcbrHlUpQkr6LFU7SMGpJdDnZqOrGeS7JMCrQ5L5WyGrSZ6yNQHyGMT9 UIzuQsUgJ9G7LNZzGeUaLUGtKFQwXfoyPZK7HzWyGN5HAd3SSwD0MUE9pYNsMp8QQiybLXgXZgNzFV2I DQo= ID Date Data Source [id number] 04/19/2020 02:48:00 PM EST [facility] ([facility]) Name Value Range Interpretation Code Description Data Kika rce(s) Supporting Document(s) Thyrotropin [Units/volume] in Serum or Plasma by Detec tion limit <= 0.05 mIU/L 0.40 uIU/mL 0.36-3.74 [facility] ([facility] ) ID Date Data Source [id number] 04/19/2020 02:48:00 PM EST [facility] ([facility]) Name Value Range Interpretation Code Description Data Kika rce(s) Supporting Document(s) Triglyceride [Mass/volume] in Serum or Plasma 68 mg/dL 30-150 [facility] ([facility]) Cholesterol [Mass/volume] in Serum or Plasma 103 mg/dL 131-200 [facility] ([facility]) Cholesterol in LDL [Mass/volume] in Serum or Plasma by calcu lation 21 CALC 50-159 [facility] ([facility]) Cholesterol in HDL [Mass/volume] in Serum or Plasma 68 mg/dL 35-60 [facility] ([facility]) ID Date Data Source [id number] 04/19/2020 02:48:00 PM EST [facility] ([facility]) Name Value Range Interpretation Code Description Data Kika rce(s) Supporting Document(s) Glucose [Mass/volume] in Serum or Plasma 99 mg/dL 74-99 [facility] ([facility]) 100-125 mg/dL PRE-DIABETES/FASTING >126 mg/dL DIABETES/FASTING Creatinine 1.2 mg/dL 0.6-1.3 [facility]) Urea nitrogen [Mass/volume] in Serum or Plasma 17 mg/dL 7-18 [facility] ([facility]) Sodium [Moles/volume] in Serum or Plasma 143 meq/L 136-145 [facility] ([facility]) Chloride [Moles/volume] in Serum or Plasma 104 meq/L 98-107 [facility] ([facility]) Potassium [Moles/volume] in Serum or Plasma 3.8 meq/L 3.5-5.1 [facility] ([facility]) Calcium [Mass/volume] in Serum or Plasma 9.5 mg/dL 8.5-10.1 [facility] ([facility]) Carbon dioxide, total [Moles/volume] in Serum or Plasma 35 meq/L 21 -32 [facility] ([facility]) Total Bilirubin 0.4 mg/dL 0.2-1.0 [facility] ([facility]) Alkaline phosphatase isoenzyme [Units/volume] in Serum or Pl asma 52 mg/dL 46-116 [facility] ([facility]) Albumin [Mass/volume] in Serum or Plasma 3.8 g/dL 3.4-5.0 [facility] ([facility]) Aspartate aminotransferase [Enzymatic activity/volume] in Serum or Plasma 34 U/L 15-37 [facility] ([facility] ) Alanine aminotransferase [Enzymatic activity/volume] in Seru m or Plasma 38 U/L 12-78 [facility] ([facility]) Proteinase 3 Ab [Units/volume] in Serum 7.1 g/dL 6.4-8.2 [facility] A/G Ratio 1.15 CALC 1.00-1.90 [facility] Glomerular filtration rate/1.73 sq M pre dicted among non-blacks [Volume Rate/Area] in Serum or Plasma by Creatinine-based formula (MDRD) 44 mL/min [facility] Glomerular filtration rate/1.73 sq M pre dicted among blacks [Volume Rate/Area] in Serum or Plasma by Creatinine-based formula (MDRD) 53 mL/min [facility] <content>CHRONIC KIDNEY DISEASE STAGING PER NKF</content>
<content></content>
<content>STAGE I & II GFR >= 60 NORMAL TO MILDLY DECREASED</content>
<content>STAGE III GFR 30-59 MODERATELY DECREASED</content>
<content>STAGE IV GFR 15-29 SEVERELY DECREASED</content>
<content>STAGE V GFR <15 VERY LITTLE GFR LEFT</content>
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
<content></content> ID Date Data Source [id number] 04/19/2020 02:48:00 PM EST [facility] ([facility]) Name Value Range Interpretation Code Description Data Kika rce(s) Supporting Document(s) Glucose mean value [Mass/volume] in Blood Estimated fr om glycated hemoglobin 140 mg/dL 60-110 [facility] Hemoglobin A1c/Hemoglobin.total in Blood 6.5 % [facility] Lab Result Notes: Pre-Diabetes 5.7 - 6.4 % Diabetes = or > 6.5% ID Date Data Source [id number] 04/19/2020 02:48:00 PM EST [facility] ([facility]) Name Value Range Interpretation Code Description Data Kika rce(s) Supporting Document(s) Erythrocytes [#/volume] in Blood by Automated count 4.14 x10*6/UL 4.2 0-6.30 [facility] ([facility]) Leukocytes [#/volume] in Blood by Automated count 5.2 x10*3/UL 4.1-10 .9 [facility] ([facility]) MCV 91.4 fL 80.0-97.0 [facility] [facility]) Hemoglobin [Mass/volume] in Blood 12.7 g/dL 12.0-18.0 [facility] ([facility]) Hematocrit [Volume Fraction] of Blood by Automated count 37.8 % 3 7.0-51.0 [facility] ([facility]) MCH 30.8 pg 26.0-32.0 [facility] ([place] [facility]) Platelets [#/volume] in Blood by Automated count 204 x10*3/UL 140-440 [facility] Erythrocyte distribution width [Ratio] by Automated count 13.6 % 11.6-13.7 [facility] ([facility]) MCHC 33.7 g/dL 31.0-38.0 [facility] ([place] [facility]) MPV 7.9 FL 7.8-11.0 [facility] ([place] [facility]) Lymph % 29.0 % 10.0-58.5 [facility] ([place] [facility]) Mid % 8.1 % 1.7-9.3 [facility] ([place] [facility]) Lymph # 1.5 x10*3/UL 0.6-4.1 [facility] ([facility]) Mid # 0.4 x10*3/UL 0.1-0.6 [facility] ([facility]) Neut % 62.9 % 37.0-92.0 [facility] ([place] [facility]) Neut # 3.3 x10*3/UL 2.0-7.8 [facility] ([facility]) ID Date Data Source [id number] 04/19/2020 02:48:00 PM EST [facility] ([facility]) Name Value Range Interpretation Code Description Data Kika rce(s) Supporting Document(s) Hemoglobin A1c/Hemoglobin.total in Blood Laboratory test result [facility] ([facility]) Procedure Social History Code Duration Value Status Description Data Source(s ) Alcohol intake 06/09/2020 12:00:00 AM EST Current non-d mallorie of alcohol (finding) completed Current non-drinker of alcohol (finding) [facility] Tobacco use and exposure 06/09/2020 12:00:00 AM EST Never used co mpleted Never used [facility] Cigarette pack-years 06/09/2020 12:00:00 AM EST UNK completed [facility] Cigarettes smoked current (pack per day) - Reported 06/09/19 12:00:00 AM EST UNK completed [facility] Smoking 06/09/2020 12:00:00 AM EST Current every day smoker co mpleted Current every day smoker [facility] Alcohol intake 05/05/2020 12:00:00 AM EST Current non-d mallorie of alcohol (finding) completed Current non-drinker of alcohol (finding) [facility] Vital Signs ID Date Data Source UNK Name Value Range Interpretation Code Description Data Source(s) Systolic blood pressure 132 mm[Hg] 132 mm[Hg] [facility] ([facility]) Diastolic blood pressure 72 mm[Hg] 72 mm[Hg] [facility] ([facility]) Heart rate 68 /min 68 /min [facility] ([facility]) Body height 62.0 [in_i] 62.0 [in_i] [facility] ([facility]) 5'2" Body weight 104.00 [lb_av] 104.00 [lb_av] [employer] ([facility]) Body mass index (BMI) [Ratio] 19.0 kg/m2 19.0 k g/m2 [facility] ([facility]) Body weight 105.00 [lb_av] 105.00 [lb_av] [employer] ([facility]) Systolic blood pressure 168 mm[Hg] 168 mm[Hg] [facility] ([facility]) Oxygen saturation in Arterial blood by Pulse oximetry 89 % 89 % [facility]) Body mass index (BMI) [Ratio] 19.2 kg/m2 19.2 k g/m2 [facility] ([facility]) Heart rate 61 /min 61 /min [facility] Body height 62.0 [in_i] 62.0 [in_i] [facility] ([facility]) 5'2" Diastolic blood pressure 64 mm[Hg] 64 mm[Hg] [facility] ([facility]) Body surface area Derived from formula 1.71 m2 1.71 m2 [facility] ([facility]) Body height 63 [in_i] 63 [in_i] [facility] ([facility]) 5'3" Body weight 150.00 [lb_av] 150.00 [lb_av] [facility] ([facility]) Body mass index (BMI) [Ratio] 26.6 kg/m2 26.6 k g/m2 [facility] ([facility]) [employer] body weight 115 [lb_av] 115 [lb_av] [facility] ([facility]) Body weight 68.040 kg 68.040 kg [facility] ([facility]) Diastolic blood pressure 62 mm[Hg] 62 mm[Hg] [facility] ([facility]) Systolic blood pressure 136 mm[Hg] 136 mm[Hg] [facility] ([facility]) Heart rate 72 /min 72 /min [facility] ([facility]) Body height 62.0 [in_i] 62.0 [in_i] [facility] ([facility]) 5'2" Body weight 108.38 [lb_av] 108.38 [lb_av] [facility] ([facility]) Oxygen saturation in Arterial blood by Pulse oximetry 90 % 90 % [facility] ([facility]) [facility] Body mass index (BMI) [Ratio] 19.8 kg/m2 19.8 k g/m2 [facility] ([facility]) Body weight 112.00 [lb_av] 112.00 [lb_av] [facility] ([facility]) Oxygen saturation in Arterial blood by Pulse oximetry 89 % 89 % [facility] ([facility]) 95% on 2L at rest Heart rate 78 /min 78 /min [facility] Body height 62.0 [in_i] 62.0 [in_i] [facility] ([facility]) 5'2" Oxygen saturation in Arterial blood by Pulse oximetry --post exerci se 85 % 85 % [facility] ([facility]) 92% on 2L with exercise Body mass index (BMI) [Ratio] 20.5 kg/m2 20.5 k g/m2 [facility] ([facility]) Body mass index (BMI) [Ratio] 26.9 kg/m2 26.9 k g/m2 [facility] ([facility]) [place] body weight 115 [lb_av] 115 [lb_av] [employer] ([facility]) Body weight 68.947 kg 68.947 kg [facility] ([facility]) Body surface area Derived from formula 1.72 m2 1.72 m2 [facility] ([facility]) Body height 63 [in_i] 63 [in_i] [facility] ([facility]) 5'3" Body weight 152.00 [lb_av] 152.00 [lb_av] [employer] ([facility]) Body temperature 97.3 [degF] 97.3 [degF] [facility] ([facility], [facility]) Systolic blood pressure 174 mm[Hg] 174 mm[Hg] [facility] ([facility], [facility]) Diastolic blood pressure 92 mm[Hg] 92 mm[Hg] [facility] ([facility] [facility], [facility]) Heart rate 72 /min 72 /min [facility] ([facility], [facility]) Respiratory rate 16 /min 16 /min [facility] ( [facility] [facility], [facility]) Oxygen saturation in Arterial blood by Pulse oximetry 93 % 93 % [facility] ([facility], [facility]) Body weight 115.00 [lb_av] 115.00 [lb_av] [employer] ([facility], [facility]) Body height 62 [in_i] 62 [in_i] [facility] ([facility], [facility]) 5'2" Body mass index (BMI) [Ratio] 21.0 kg/m2 21.0 k g/m2 [facility] ([facility], [facility]) Body height 62.0 [in_i] 62.0 [in_i] [facility] ([facility]) 5'2" Diastolic blood pressure 72 mm[Hg] 72 mm[Hg] [facility] ([facility]) Heart rate 68 /min 68 /min [facility] ([facility]) Systolic blood pressure 118 mm[Hg] 118 mm[Hg] [facility] ([facility]) Body weight 117.00 [lb_av] 117.00 [lb_av] [facility] ([facility]) Body mass index (BMI) [Ratio] 21.4 kg/m2 21.4 k g/m2 [facility] ([facility]) Diastolic blood pressure 70 mm[Hg] 70 mm[Hg] [facility] ([facility]) Heart rate 71 /min 71 /min [facility] ([facility]) Body height 62.0 [in_i] 62.0 [in_i] [facility] ([facility]) 5'2" Body weight 123.00 [lb_av] 123.00 [lb_av] [facility] ([facility]) Body mass index (BMI) [Ratio] 22.5 kg/m2 22.5 k g/m2 [facility] ([facility]) Systolic blood pressure 122 mm[Hg] 122 mm[Hg] [facility] ([facility]) Body height 63 [in_i] 63 [in_i] [facility] ([facility], ) 5'3" Body weight 149.00 [lb_av] 149.00 [lb_av] [facility] ([facility], ) Body mass index (BMI) [Ratio] 26.4 kg/m2 26.4 k g/m2 [facility] ([facility], ) [place] body weight 115 [lb_av] 115 [lb_av] [facility] ([facility], ) Body weight 67.586 kg 67.586 kg [facility] ([facility], ) Body surface area Derived from formula 1.71 m2 1.71 m2 [facility] ([facility], ) ID Date Data Source [id number] 06/14/2020 08:50:49 AM [facility] Name Value Range Interpretation Code Description Data Source(s) WEIGHT RECORDED 115 lb 115 lb [facility] ID Date Data Source [id number] 05/05/2020 03:58:48 PM [facility] Name Value Range Interpretation Code Description Data Source(s) WEIGHT RECORDED 117 lb 117 lb [facility] Patient Treatment Plan of Care Planned Activity Planned Date Details Description Data Source (s) Clonazepam 1 MG Oral Tablet [facility]
== END 2021-04-23 17:34 | disposition left against medical advice (07) ==
LOC: M ED 17:09
DX: Z53.29 Procedure and treatment not carried out because of patient's decision for other reasons (principal)